=== PATIENT | female | born 1945 | race Caucasian/White ===

== ENCOUNTER → 2018-01-15 08:50 | Outpatient (CLI) | payer OTHER, SELFPAY ==
[2018-01-15 10:46] LABS: Add Manual Diff / Slide Review NO; Basophils Percent Auto 0.7 % (0-2); Eosinophils Percent Auto 2.3 % (2-4); Hemoglobin 14.5 g/dL (12.0-16.0); Lymphocytes Percent Auto 20.1 % (25-40); Mean Corpuscular HGB Conc 33.8 % (30-36); Mean Corpuscular Hemoglobin 32.5 PG (26-34); Mean Corpuscular Volume 96.3 fL (80-100); Monocytes Percent Auto 8.8 % (3-14); Neutrophils Absolute Auto 4000 /uL (3000-5900); Neutrophils Percent Auto 68.1 % (50-75); Platelet Count 253 X10^3/uL (150-400); Red Blood Cell Count 4.47 X10^6/uL (4.0-5.2); Red Cell Distribution Width 12.5 % (11.6-14.8); White Blood Cell Count 5.8 X10^3/uL (4.5-11.0)
[2018-01-15 11:05] LABS: Alanine Aminotransferase 39 IU/L (9-52); Albumin 4.3 g/dL (3.5-5.0); Albumin Globulin Ratio 1.6 (1.0-2.8); Alkaline Phosphatase 51 U/L (38-126); Aspartate Aminotransferase 36 IU/L (14-36); BUN Creatinine Ratio 28.6 (6-22); Bilirubin Total 0.6 mg/dL (0.2-1.3); Blood Urea Nitrogen 20 mg/dL (7-17); Calcium 9.3 mg/dL (8.4-10.2); Carbon Dioxide 31 mmol/L (22-32); Chloride 99 mmol/L (98-107); Cholesterol 128 mg/dL (140-199); Estimated Glomerular Filt Rate > 60.0 mL/min (>60); Globulin 2.7 g/dL (1.7-4.1); Glucose 83 mg/dL (80-110); HDL Cholesterol 52 mg/dL (40-60); HEMOLYSIS < 15 (0-50); LDL Cholesterol Calculated 64 mg/dL (<100); Potassium 4.3 mmol/L (3.4-5.1); Sodium 137 mmol/L (137-145); Triglycerides 60 mg/dL (35-150)
[2018-01-15 11:32] LABS: TSH w/ Reflex to FT4 1.59 uIU/mL (0.47-4.68)
== END ==
PROVIDERS: PCP Family Medicine; Visit Provider Family Medicine
DX: E78.5 Hyperlipidemia, unspecified (principal)
CPT/HCPCS: 36415; 80053; 80061; 84443; 85025

== ENCOUNTER 2018-01-24 11:40 | Emergency (ER) | payer OTHER, SELFPAY ==
[2018-01-24 11:48] VITALS: BP 152/92; PULSE 46; RESP 14; TEMP 36.4; O2SAT 99
--- NOTE | 2018-01-24 13:03 | ED.BACK ---
HPI - Back Pain/Injury General Chief Complaint: Back Pain/Injury Stated Complaint: neck pain that is causing [place],elevated bp Time Seen by Provider: 01/24/18 12:13 History of Present Illness HPI Narrative: 72-year-old female here for complaint of having neck pain bilaterally for the last couple of days. She also reports having some dizziness that she obtained after holding her head up and trying to trim some hedges that were above her. She states that she went inside and rested and that seem to help her symptoms somewhat. She denies any trauma to the neck except she did have a massage last week that did cause some increased pain to to her neck. She denies any headache. She also states that her heart rate has been slow over the last few days. She is able to ambulate into the emergency room. No syncope. No chest pain no shortness of breath no fevers no chills. MD Complaint: other Related Data Home Medications Medication Instructions Recorded Confirmed ASCORBIC ACID (#VITAMIN C) 500 mg PO QDAY #0 04/06/11 01/19/18 CA PANTOTHENATE/FOLIC ACID/VIT 1 tab PO QDAY #0 04/06/11 01/19/18 (MULTIVITAMIN) cholecalciferol (vitamin D3) 1,000 1,000 unit PO DAILY 01/19/18 01/19/18 unit capsule ubidecarenone-omega 3-vit E 25 1 cap PO DAILY 01/19/18 01/19/18 mg-150 (90-60) mg-200 unit capsule Previous Rx's Medication Instructions Recorded atorvastatin 40 mg PO HS #90 tab 07/12/17 frovatriptan [Frova] 0 PO SEE INSTRUCTIONS PRN #9 tab 10/09/17 nadolol 20 mg tablet 20 mg PO QDAY #90 tab 11/29/17 Allergies Allergy/AdvReac Type Severity Reaction Status Date / Time Penicillins Allergy Mild CHILDHOOD Verified 01/19/18 15:49 Review of Systems Constitutional Denies chills, Denies fever(s), Denies lethargy and Denies weakness Eyes Denies change in vision, Denies eye discharge, Denies irritation and Denies loss of vision ENT Ears, Nose, Mouth, and Throat: Denies change in voice, Denies neck pain and Denies sore throat Cardiovascular Denies chest pain, Denies irregular heart rhythm, Denies lightheadedness, Denies palpitations, Denies dyspnea, Denies dyspnea on exertion and Denies orthopnea Comments: Dizziness Respiratory Denies cough, Denies dyspnea, Denies dyspnea on exertion and Denies wheezing Gastrointestinal Gastrointestinal: Denies abdominal pain, Denies change in bowel habits, Denies diarrhea, Denies nausea and Denies vomiting Genitourinary Denies hematuria, Denies flank pain, Denies urinary incontinence and Denies urinary urgency Musculoskeletal Denies neck pain Comments: Neck pain Integumentary/Breasts Denies pruritus, Denies erythema, Denies rash and Denies wounds Neurologic Denies confusion, Denies loss of vision and Denies weakness Psychiatric Denies anxiety, Denies confusion, Denies depression, Denies homicidal ideation and Denies suicidal ideation Endocrine Denies palpitations Allergic/Immunologic Denies wheezing FORMERLY [facility] Medical History Chronic headaches (Chronic 1996) Hayfever (Chronic) Myopia (Chronic 2010) Retinal degeneration (Chronic 2010) SVT (supraventricular tachycardia) (Chronic 2003) Abnormal Pap smear of cervix (Resolved 2001) 1 para 1 (Resolved) History of eczema as a child (Resolved) Menopause (Resolved ~1995) Surgical History Severe nausea following anesthesia (Resolved) Status post colonoscopy (Resolved 2013) Status post tubal ligation (Resolved 1994) Family History Father Polycystic kidney Crohn's disease Grandfather Cancer Mother Diabetes mellitus, type 2 Dementia Pneumonia Grandmother No problems noted. Grandfather Lung cancer Grandmother Dementia Social History Smoking Status: Never smoker Exam Initial Vital Signs Initial Vital Signs: Vital Signs Temperature 97.6 F 01/24/18 11:48 Pulse Rate 46 L 01/24/18 11:48 Respiratory Rate 14 01/24/18 11:48 Blood Pressure 152/92 H 01/24/18 11:48 Pulse Oximetry 99 01/24/18 11:48 Const General: cooperative and well developed Nutritional Appearance: well nourished Orientation: alert, awake, oriented x3 and not confused HENMT Head: normal to inspection and normocephalic Mouth: oral mucosae normal, oropharynx normal and moist mucous membranes Eyes Conjunctivae: conjunctivae normal Sclera: sclerae normal Pupils: PERRL EOM: EOM intact bilaterally Neck Neck: normal visual inspection, full ROM, trachea midline, No lymphadenopathy, No midline deformity and No JVD Lymphatic: No lymphedema Other: Tenderness to bilateral cervical paraspinals Chest Chest: normal inspection of the chest Resp Effort & Inspection: normal respiratory effort, able to speak in complete sentences, no respiratory distress and no use of accessory muscles Auscultation: clear to auscultation bilaterally, no rales, no rhonchi and no wheezes Cardio Rate: bradycardic Rhythm: regular rhythm Heart Sounds: no click, no gallops, no murmurs and no rubs Pulses: normal peripheral pulses Skin General: no rashes or lesions noted, No jaundice and No petechiae Neuro General: alert, oriented x3, gait normal and no focal motor deficits Speech: speech normal Extrem General: full ROM, no clubbing, cyanosis or edema, no pedal edema and no calf tenderness Course Orders Ordered: ED Orders 01/24/18 13:29 CT angio head and neck Stat XR chest 1V Stat 01/24/18 13:45 Complete Blood Count AUTO DIFF Stat Comprehensive Metabolic Panel Stat Troponin & CK Cardiac Panel Stat Vital Signs - 8 hr 01/24/18 13:57 01/24/18 14:56 Pulse Rate 45 L 50 L Respiratory Rate 14 13 Blood Pressure [Right Arm] 134/57 H 147/63 H Pulse Oximetry 98 MDM - Back Pain/Injury Lab Data Result diagrams: 01/24/18 13:45 01/24/18 13:45 Lab Results 01/24/18 01/24/18 Range/Units 13:45 13:45 WBC 5.8 (4.5-11.0) X10^3/uL RBC 4.31 (4.0-5.2) X10^6/uL Hgb 14.1 (12.0-16.0) g/dL Hct 41.6 (36-46) % MCV 96.6 (80-100) fL MCH 32.8 (26-34) PG MCHC 33.9 (30-36) % RDW 12.5 (11.6-14.8) % Plt Count 228 (150-400) X10^3/uL Neut % (Auto) 66.3 (50-75) % Lymph % (Auto) 21.9 L (25-40) % Terry % (Auto) 9.4 (3-14) % Eos % (Auto) 1.9 L (2-4) % Baso % (Auto) 0.5 (0-2) % Neut # (Auto) 3800 (8059-8979) /uL Sodium 139 (137-145) mmol/L Potassium 4.0 (3.4-5.1) mmol/L Chloride 100 (98-107) mmol/L Carbon Dioxide 32 (22-32) mmol/L BUN 20 H (7-17) mg/dL Creatinine 0.70 (0.52-1.04) mg/dL Estimated GFR > 60.0 (>60) mL/min BUN/Creatinine Ratio 28.6 H (6-22) Glucose 97 (80-110) mg/dL Calcium 9.1 (8.4-10.2) mg/dL Total Bilirubin 0.4 (0.2-1.3) mg/dL AST 29 (14-36) IU/L ALT 36 (9-52) IU/L Alkaline Phosphatase 51 (38-126) U/L Total Creatine Kinase 107 (30-135) U/L CK-MB (CK-2) 1.39 (<2.37) ng/mL CK-MB (CK-2) Rel Index 1.3 L (1.5-5.0) % Troponin I < 0.012 (0.01-0.034) ng/mL Total Protein 6.4 (6.3-8.2) g/dL Albumin 4.1 (3.5-5.0) g/dL Globulin 2.3 (1.7-4.1) g/dL Albumin/Globulin Ratio 1.8 (1.0-2.8) Imaging Data Chest x-ray: Radiologist's impression: Patient: Blessing Islas MR#: [id number] : 1945 Acct:[id number] Age/Sex: 72 / F Date of Service: 01/24/18 Loc: ED Accession Number: [id number] Procedure: XR chest 1V Ordering Provider: Reji Wilson PROCEDURE: XR CHEST 1V INDICATIONS: States feeling off TECHNIQUE: One view of the chest was acquired. COMPARISON: [facility], , CHEST 2 VIEW, 04/29/2016, 12:10. FINDINGS: Surgical changes and devices: None. Lungs and pleura: No pleural effusions or pneumothorax. Lungs are clear. Mediastinum: Mediastinal contours appear normal. Heart size is normal. Bones and chest wall: No suspicious bony lesions. Overlying soft tissues appear unremarkable. IMPRESSION: Normal for age, source of current symptoms is not seen. Dictated by: Vishal Gleason M.D. on 01/24/2018 at 13:50 Approved by: Vishal Glaeson M.D. on 01/24/2018 at 13:50 CT scan - head: Radiologist's impression: Signed Patient: Blessing Islas MR#: [id number] : 1945 Acct:[id number] Age/Sex: 72 / F Date of Service: 01/24/18 Loc: ED Accession Number: [id number] Procedure: CT angio head and neck Ordering Provider: Reji Wilson PROCEDURE: CT ANGIO HEAD AND NECK INDICATIONS: Neck pain and lightheadedness TECHNIQUE: Pre-contrast 4.5 mm thick sections acquired from the foramen magnum to the vertex. After the administration of intravenous contrast, 1 mm thick sections acquired from the aortic arch through the [place]. Post-contrast 4.5 mm thick sections then re-acquired from the foramen magnum to the vertex. 3-dimensional wagfauq-gecnvdczs-lancldejec (MIP) and/or volume rendering reformats were acquired of the central intracranial vasculature and neck separately. COMPARISON: [facility], , MRI HEAD W/WO CONTRAST, 01/27/2006, 16:28. FINDINGS: Image quality: Excellent. BRAIN: CSF spaces: Ventricles are normal in size and shape. Basal cisterns are patent. No extra-axial fluid collections. At the right parafalcine extra-axial space anteriorly near the frontoparietal junction there is a rounded calcific radiodensity that appears to arise from the falx, and which measures up to 8 mm in diameter, and is not associated with adjacent significant mass effect or vasogenic edema. The appearance is suggestive of a small meningioma. Brain: No midline shift. No intracranial bleeds or masses. [place]ax-white matter interface appears intact. Skull and face: Calvarium and facial bones appear intact, without suspicious lesions. Orbits appear normal. Sinuses: Sinuses and mastoids are clear. HEAD CT ANGIOGRAPHY: Anterior circulation: Intracranial internal carotid arteries are normal in size and flow. The flow within the paired anterior cerebral arteries is normal and symmetric. The flow within the middle cerebral arteries is normal and symmetric. The anterior communicating artery is seen. No aneurysms are seen. Posterior circulation: Visualized portions of the vertebral arteries demonstrate normal caliber, and join to form a normal appearing basilar artery. Flow within the posterior cerebral arteries is normal and symmetric. No aneurysms are seen. NECK CT ANGIOGRAPHY: Carotid system: The great vessels demonstrate a conventional anatomy as they arise from the aortic arch. The origins of the common carotid arteries appear patent. The common carotid arteries demonstrate normal caliber and courses. The bifurcation regions are both widely patent. The internal carotid arteries demonstrate normal calibers and courses. Posterior circulation: The origins of the vertebral arteries both appear widely patent. The more superior extracranial portions of both vertebral arteries also demonstrate normal courses and calibers. They join to form a normal appearing basilar artery. Soft tissues: Visualized neck soft tissues demonstrate no suspicious abnormalities. Bones: No suspicious bony lesions. Visualized cervical spine appears normally aligned. IMPRESSION: Brain parenchyma appears normal for age. No stroke or hemorrhage found, no mass lesion within the brain parenchyma is identified. A definite source of current symptoms is not seen. There is an 8mm diameter calcified right anterior parafalcine frontoparietal junction structure statistically likely to represent a small meningioma. On review of a prior MRI from 01/27/06 this structure appears to have been present and measured only 1.2 mm at that time. If clinically desired a followup elective contrast-enhanced brain MRI could be utilized to confirm diagnosis. Any quantitative measurements of stenosis were performed using NASCET criteria. Dictated by: Vishal Gleason M.D. on 01/24/2018 at 14:48 Approved by: Vishal Gleason M.D. on 01/24/2018 at 14:55 ECG Data Interpretation: EKG shows sinus bradycardia with ventricular rate of 41. No ST elevation or depression. No ectopy. Pr interval 188. QRS duration of 85. QT of 463 MDM Narrative Medical decision making narrative: Chest x-ray was obtained and was negative for any acute findings. EKG shows sinus bradycardia with no ST elevation or depression. No ectopy. CBC was obtained was unremarkable. Chem panel was obtained was unremarkable. Troponin was negative. CTA of head and neck was obtained and was negative for any acute findings. There was a finding that is suggestive of a meningioma that was 8 mm. Which compared to MRI in 2011 was 1.2 mm. Will have follow up with primary care provider for further evaluation. Looking back at her vital signs over the last several months she is consistently in the 40s and 50s suspect that this may be due to her nadolol prescription. Her blood pressure remained stable here. Neck pain appears to be muscle pain into the paraspinals of her cervical spine use [id number] Tylenol for discomfort. Follow up with primary care provider in next few days return emergency room for worsening symptoms. Discharge Plan Departure Patient Disposition: Home, Self-Care Clinical Impression: Bilateral neck pain Discharge Date/Time: 01/24/18 15:34 Interventions: ED Discharge Assessment Last Done: 01/24/18 15:34 Instructions: DI for Neck Pain Activity Restrictions/Additional Instructions: Signs and symptoms of the neck pain appear to be muscle pain to both sides of the neck use [id number] Tylenol as needed for any discomfort. Laboratory results today were unremarkable. CT and chest x-ray were also unremarkable. Your heart rate over the past several months has been in the 40s and 50s suspect this may be due to the nadolol use which does slow down the heart rate. There was a finding of meningioma which was also seen in MRI from 2011 however it is slightly larger on the CT today. Recommend following up with primary care provider for continued monitoring. For any worsening symptoms return to the emergency room. Prescriptions: No Action ASCORBIC ACID (#VITAMIN C) 500 mg PO QDAY Qty: 0 RF: 0 CA PANTOTHENATE/FOLIC ACID/VIT (MULTIVITAMIN) 1 tab PO QDAY Qty: 0 RF: 0 atorvastatin 40 MG tablet 40 mg PO HS Qty: 90 RF: 3 frovatriptan [Frova] 2.5 MG tablet PO SEE INSTRUCTIONS PRNQty: 9 RF: 11 nadolol 20 mg tablet 20 mg PO QDAY Qty: 90 RF: 5 ubidecarenone-omega 3-vit E [Co [id number] E-Fish Oil] 25-150-200 mg-mg-unit capsule 1 cap PO DAILY RF: 0 cholecalciferol (vitamin D3) 1,000 unit capsule 1,000 unit PO DAILY RF: 0 Referrals: Kym Mayorga DO [Primary Care Provider] -
--- NOTE | 2018-01-24 13:12 | PC.NURSE ---
rt side neck pain, began while gardening several days ago, pt reports she was looking up for a while during pruning, reports since that time the neck pain has been episodic with associated dizziness, also concern about low heart rate, sinus jimenez on monitor, denies sx at time of exam, denies cp/soa/numbness/tingling/fall or recent illness
--- NOTE | 2018-01-24 13:29 | DI.CT.S_ITS ---
PROCEDURE: CT ANGIO HEAD AND NECK INDICATIONS: Neck pain and lightheadedness TECHNIQUE: Pre-contrast 4.5 mm thick sections acquired from the foramen magnum to the vertex. After the administration of intravenous contrast, 1 mm thick sections acquired from the aortic arch through the [place] of [place]. Post-contrast 4.5 mm thick sections then re-acquired from the foramen magnum to the vertex. 3-dimensional obbiasl-ubvfvxjve-depinbphxo (MIP) and/or volume rendering reformats were acquired of the central intracranial vasculature and neck separately. COMPARISON: [facility], , MRI HEAD W/WO CONTRAST, 01/27/2006, 16:28. FINDINGS: Image quality: Excellent. BRAIN: CSF spaces: Ventricles are normal in size and shape. Basal cisterns are patent. No extra-axial fluid collections. At the right parafalcine extra-axial space anteriorly near the frontoparietal junction there is a rounded calcific radiodensity that appears to arise from the falx, and which measures up to 8 mm in diameter, and is not associated with adjacent significant mass effect or vasogenic edema. The appearance is suggestive of a small meningioma. Brain: No midline shift. No intracranial bleeds or masses. [place]-white matter interface appears intact. Skull and face: Calvarium and facial bones appear intact, without suspicious lesions. Orbits appear normal. Sinuses: Sinuses and mastoids are clear. HEAD CT ANGIOGRAPHY: Anterior circulation: Intracranial internal carotid arteries are normal in size and flow. The flow within the paired anterior cerebral arteries is normal and symmetric. The flow within the middle cerebral arteries is normal and symmetric. The anterior communicating artery is seen. No aneurysms are seen. Posterior circulation: Visualized portions of the vertebral arteries demonstrate normal caliber, and join to form a normal appearing basilar artery. Flow within the posterior cerebral arteries is normal and symmetric. No aneurysms are seen. NECK CT ANGIOGRAPHY: Carotid system: The great vessels demonstrate a conventional anatomy as they arise from the aortic arch. The origins of the common carotid arteries appear patent. The common carotid arteries demonstrate normal caliber and courses. The bifurcation regions are both widely patent. The internal carotid arteries demonstrate normal calibers and courses. Posterior circulation: The origins of the vertebral arteries both appear widely patent. The more superior extracranial portions of both vertebral arteries also demonstrate normal courses and calibers. They join to form a normal appearing basilar artery. Soft tissues: Visualized neck soft tissues demonstrate no suspicious abnormalities. Bones: No suspicious bony lesions. Visualized cervical spine appears normally aligned. IMPRESSION: Brain parenchyma appears normal for age. No stroke or hemorrhage found, no mass lesion within the brain parenchyma is identified. A definite source of current symptoms is not seen. There is an 8mm diameter calcified right anterior parafalcine frontoparietal junction structure statistically likely to represent a small meningioma. On review of a prior MRI from 01/27/06 this structure appears to have been present and measured only 1.2 mm at that time. If clinically desired a followup elective contrast-enhanced brain MRI could be utilized to confirm diagnosis. Any quantitative measurements of stenosis were performed using NASCET criteria. Dictated by: Vishal Gleason M.D. on 01/24/2018 at 14:48 Approved by: Vishal Gleason M.D. on 01/24/2018 at 14:55
--- NOTE | 2018-01-24 13:29 | DI.RAD.S_ITS ---
PROCEDURE: XR CHEST 1V INDICATIONS: States feeling off TECHNIQUE: One view of the chest was acquired. COMPARISON: [facility], , CHEST 2 VIEW, 04/29/2016, 12:10. FINDINGS: Surgical changes and devices: None. Lungs and pleura: No pleural effusions or pneumothorax. Lungs are clear. Mediastinum: Mediastinal contours appear normal. Heart size is normal. Bones and chest wall: No suspicious bony lesions. Overlying soft tissues appear unremarkable. IMPRESSION: Normal for age, source of current symptoms is not seen. Dictated by: Vishal Gleason M.D. on 01/24/2018 at 13:50 Approved by: Vishal Gleason M.D. on 01/24/2018 at 13:50
[2018-01-24 13:57] VITALS: BP 134/57; PULSE 45; RESP 14
[2018-01-24 13:57] LABS: Add Manual Diff / Slide Review NO; Basophils Percent Auto 0.5 % (0-2); Eosinophils Percent Auto 1.9 % (2-4); Hematocrit 41.6 % (36-46); Hemoglobin 14.1 g/dL (12.0-16.0); Lymphocytes Percent Auto 21.9 % (25-40); Mean Corpuscular HGB Conc 33.9 % (30-36); Mean Corpuscular Hemoglobin 32.8 PG (26-34); Mean Corpuscular Volume 96.6 fL (80-100); Monocytes Percent Auto 9.4 % (3-14); Neutrophils Absolute Auto 3800 /uL (3000-5900); Neutrophils Percent Auto 66.3 % (50-75); Platelet Count 228 X10^3/uL (150-400); Red Blood Cell Count 4.31 X10^6/uL (4.0-5.2); Red Cell Distribution Width 12.5 % (11.6-14.8); White Blood Cell Count 5.8 X10^3/uL (4.5-11.0)
[2018-01-24 14:12] LABS: Alanine Aminotransferase 36 IU/L (9-52); Albumin 4.1 g/dL (3.5-5.0); Albumin Globulin Ratio 1.8 (1.0-2.8); Alkaline Phosphatase 51 U/L (38-126); Aspartate Aminotransferase 29 IU/L (14-36); BUN Creatinine Ratio 28.6 (6-22); Bilirubin Total 0.4 mg/dL (0.2-1.3); Blood Urea Nitrogen 20 mg/dL (7-17); Calcium 9.1 mg/dL (8.4-10.2); Carbon Dioxide 32 mmol/L (22-32); Chloride 100 mmol/L (98-107); Creatine Kinase 107 U/L (30-135); Estimated Glomerular Filt Rate > 60.0 mL/min (>60); Globulin 2.3 g/dL (1.7-4.1); Glucose 97 mg/dL (80-110); HEMOLYSIS < 15 (0-50); Sodium 139 mmol/L (137-145); Total Protein 6.4 g/dL (6.3-8.2)
[2018-01-24 14:23] LABS: Troponin I < 0.012 ng/mL (0.01-0.034)
[2018-01-24 14:28] LABS: CKMB % Relative Index 1.3 % (1.5-5.0); Creatine Kinase MB 1.39 ng/mL (<2.37)
--- NOTE | 2018-01-24 14:47 | ED_ITS ---
HPI - Back Pain/Injury General Chief Complaint: Back Pain/Injury Stated Complaint: neck pain that is causing [place],elevated bp Time Seen by Provider: 01/24/18 12:13 History of Present Illness HPI Narrative: 72-year-old female here for complaint of having neck pain bilaterally for the last couple of days. She also reports having some dizziness that she obtained after holding her head up and trying to trim some hedges that were above her. She states that she went inside and rested and that seem to help her symptoms somewhat. She denies any trauma to the neck except she did have a massage last week that did cause some increased pain to to her neck. She denies any headache. She also states that her heart rate has been slow over the last few days. She is able to ambulate into the emergency room. No syncope. No chest pain no shortness of breath no fevers no chills. MD Complaint: other Related Data Home Medications Medication Instructions Recorded Confirmed ASCORBIC ACID (#VITAMIN C) 500 mg PO QDAY #0 04/06/11 01/19/18 CA PANTOTHENATE/FOLIC ACID/VIT 1 tab PO QDAY #0 04/06/11 01/19/18 (MULTIVITAMIN) cholecalciferol (vitamin D3) 1,000 1,000 unit PO DAILY 01/19/18 01/19/18 unit capsule ubidecarenone-omega 3-vit E 25 1 cap PO DAILY 01/19/18 01/19/18 mg-150 (90-60) mg-200 unit capsule Previous Rx's Medication Instructions Recorded atorvastatin 40 mg PO HS #90 tab 07/12/17 frovatriptan [Frova] 0 PO SEE INSTRUCTIONS PRN #9 tab 10/09/17 nadolol 20 mg tablet 20 mg PO QDAY #90 tab 11/29/17 Allergies Allergy/AdvReac Type Severity Reaction Status Date / Time Penicillins Allergy Mild CHILDHOOD Verified 01/19/18 15:49 Review of Systems Constitutional Denies chills, Denies fever(s), Denies lethargy and Denies weakness Eyes Denies change in vision, Denies eye discharge, Denies irritation and Denies loss of vision ENT Ears, Nose, Mouth, and Throat: Denies change in voice, Denies neck pain and Denies sore throat Cardiovascular Denies chest pain, Denies irregular heart rhythm, Denies lightheadedness, Denies palpitations, Denies dyspnea, Denies dyspnea on exertion and Denies orthopnea Comments: Dizziness Respiratory Denies cough, Denies dyspnea, Denies dyspnea on exertion and Denies wheezing Gastrointestinal Gastrointestinal: Denies abdominal pain, Denies change in bowel habits, Denies diarrhea, Denies nausea and Denies vomiting Genitourinary Denies hematuria, Denies flank pain, Denies urinary incontinence and Denies urinary urgency Musculoskeletal Denies neck pain Comments: Neck pain Integumentary/Breasts Denies pruritus, Denies erythema, Denies rash and Denies wounds Neurologic Denies confusion, Denies loss of vision and Denies weakness Psychiatric Denies anxiety, Denies confusion, Denies depression, Denies homicidal ideation and Denies suicidal ideation Endocrine Denies palpitations Allergic/Immunologic Denies wheezing [facility] Medical History Chronic headaches (Chronic 1996) Hayfever (Chronic) Myopia (Chronic 2010) Retinal degeneration (Chronic 2010) SVT (supraventricular tachycardia) (Chronic 2003) Abnormal Pap smear of cervix (Resolved 2001) 1 para 1 (Resolved) History of eczema as a child (Resolved) Menopause (Resolved ~1995) Surgical History Severe nausea following anesthesia (Resolved) Status post colonoscopy (Resolved 2013) Status post tubal ligation (Resolved 1994) Family History Father Polycystic kidney Crohn's disease Grandfather Cancer Mother Diabetes mellitus, type 2 Dementia Pneumonia Grandmother No problems noted. Grandfather Lung cancer Grandmother Dementia Social History Smoking Status: Never smoker Exam Initial Vital Signs Initial Vital Signs: Vital Signs Temperature 97.6 F 01/24/18 11:48 Pulse Rate 46 L 01/24/18 11:48 Respiratory Rate 14 01/24/18 11:48 Blood Pressure 152/92 H 01/24/18 11:48 Pulse Oximetry 99 01/24/18 11:48 Const General: cooperative and well developed Nutritional Appearance: well nourished Orientation: alert, awake, oriented x3 and not confused HENMT Head: normal to inspection and normocephalic Mouth: oral mucosae normal, oropharynx normal and moist mucous membranes Eyes Conjunctivae: conjunctivae normal Sclera: sclerae normal Pupils: PERRL EOM: EOM intact bilaterally Neck Neck: normal visual inspection, full ROM, trachea midline, No lymphadenopathy, No midline deformity and No JVD Lymphatic: No lymphedema Other: Tenderness to bilateral cervical paraspinals Chest Chest: normal inspection of the chest Resp Effort & Inspection: normal respiratory effort, able to speak in complete sentences, no respiratory distress and no use of accessory muscles Auscultation: clear to auscultation bilaterally, no rales, no rhonchi and no wheezes Cardio Rate: bradycardic Rhythm: regular rhythm Heart Sounds: no click, no gallops, no murmurs and no rubs Pulses: normal peripheral pulses Skin General: no rashes or lesions noted, No jaundice and No petechiae Neuro General: alert, oriented x3, gait normal and no focal motor deficits Speech: speech normal Extrem General: full ROM, no clubbing, cyanosis or edema, no pedal edema and no calf tenderness Course Orders Ordered: ED Orders 01/24/18 13:29 CT angio head and neck Stat XR chest 1V Stat 01/24/18 13:45 Complete Blood Count AUTO DIFF Stat Comprehensive Metabolic Panel Stat Troponin & CK Cardiac Panel Stat Vital Signs - 8 hr 01/24/18 13:57 01/24/18 14:56 Pulse Rate 45 L 50 L Respiratory Rate 14 13 Blood Pressure [Right Arm] 134/57 H 147/63 H Pulse Oximetry 98 MDM - Back Pain/Injury Lab Data Result diagrams: 01/24/18 13:45 01/24/18 13:45 Lab Results 01/24/18 01/24/18 Range/Units 13:45 13:45 WBC 5.8 (4.5-11.0) X10^3/uL RBC 4.31 (4.0-5.2) X10^6/uL Hgb 14.1 (12.0-16.0) g/dL Hct 41.6 (36-46) % MCV 96.6 (80-100) fL MCH 32.8 (26-34) PG MCHC 33.9 (30-36) % RDW 12.5 (11.6-14.8) % Plt Count 228 (150-400) X10^3/uL Neut % (Auto) 66.3 (50-75) % Lymph % (Auto) 21.9 L (25-40) % Bradley % (Auto) 9.4 (3-14) % Eos % (Auto) 1.9 L (2-4) % Baso % (Auto) 0.5 (0-2) % Neut # (Auto) 3800 (6384-4446) /uL Sodium 139 (137-145) mmol/L Potassium 4.0 (3.4-5.1) mmol/L Chloride 100 (98-107) mmol/L Carbon Dioxide 32 (22-32) mmol/L BUN 20 H (7-17) mg/dL Creatinine 0.70 (0.52-1.04) mg/dL Estimated GFR > 60.0 (>60) mL/min BUN/Creatinine Ratio 28.6 H (6-22) Glucose 97 (80-110) mg/dL Calcium 9.1 (8.4-10.2) mg/dL Total Bilirubin 0.4 (0.2-1.3) mg/dL AST 29 (14-36) IU/L ALT 36 (9-52) IU/L Alkaline Phosphatase 51 (38-126) U/L Total Creatine Kinase 107 (30-135) U/L CK-MB (CK-2) 1.39 (<2.37) ng/mL CK-MB (CK-2) Rel Index 1.3 L (1.5-5.0) % Troponin I < 0.012 (0.01-0.034) ng/mL Total Protein 6.4 (6.3-8.2) g/dL Albumin 4.1 (3.5-5.0) g/dL Globulin 2.3 (1.7-4.1) g/dL Albumin/Globulin Ratio 1.8 (1.0-2.8) Imaging Data Chest x-ray: Radiologist's impression: Patient: Blessing Islas MR#: [id number] : 1945 Acct:[id number] Age/Sex: 72 / F Date of Service: 01/24/18 Loc: ED Accession Number: [id number] Procedure: XR chest 1V Ordering Provider: Reji Wilson PROCEDURE: XR CHEST 1V INDICATIONS: States feeling off TECHNIQUE: One view of the chest was acquired. COMPARISON: [facility], , CHEST 2 VIEW, 04/29/2016, 12:10. FINDINGS: Surgical changes and devices: None. Lungs and pleura: No pleural effusions or pneumothorax. Lungs are clear. Mediastinum: Mediastinal contours appear normal. Heart size is normal. Bones and chest wall: No suspicious bony lesions. Overlying soft tissues appear unremarkable. IMPRESSION: Normal for age, source of current symptoms is not seen. Dictated by: Vishal Gleason M.D. on 01/24/2018 at 13:50 Approved by: Vishal Gleason M.D. on 01/24/2018 at 13:50 CT scan - head: Radiologist's impression: Signed Patient: Blessing Islas MR#: [id number] : 1945 Acct:[id number] Age/Sex: 72 / F Date of Service: 01/24/18 Loc: ED Accession Number: [id number] Procedure: CT angio head and neck Ordering Provider: Reji Wilson PROCEDURE: CT ANGIO HEAD AND NECK INDICATIONS: Neck pain and lightheadedness TECHNIQUE: Pre-contrast 4.5 mm thick sections acquired from the foramen magnum to the vertex. After the administration of intravenous contrast, 1 mm thick sections acquired from the aortic arch through the [place] of [place]. Post-contrast 4.5 mm thick sections then re- acquired from the foramen magnum to the vertex. 3-dimensional maximum-intensity- projection (MIP) and/or volume rendering reformats were acquired of the central intracranial vasculature and neck separately. COMPARISON: [facility], , MRI HEAD W/WO CONTRAST, 01/27/2006, 16:28. FINDINGS: Image quality: Excellent. BRAIN: CSF spaces: Ventricles are normal in size and shape. Basal cisterns are patent. No extra-axial fluid collections. At the right parafalcine extra-axial space anteriorly near the frontoparietal junction there is a rounded calcific radiodensity that appears to arise from the falx, and which measures up to 8 mm in diameter, and is not associated with adjacent significant mass effect or vasogenic edema. The appearance is suggestive of a small meningioma. Brain: No midline shift. No intracranial bleeds or masses. [place]-white matter interface appears intact. Skull and face: Calvarium and facial bones appear intact, without suspicious lesions. Orbits appear normal. Sinuses: Sinuses and mastoids are clear. HEAD CT ANGIOGRAPHY: Anterior circulation: Intracranial internal carotid arteries are normal in size and flow. The flow within the paired anterior cerebral arteries is normal and symmetric. The flow within the middle cerebral arteries is normal and symmetric. The anterior communicating artery is seen. No aneurysms are seen. Posterior circulation: Visualized portions of the vertebral arteries demonstrate normal caliber, and join to form a normal appearing basilar artery. Flow within the posterior cerebral arteries is normal and symmetric. No aneurysms are seen. NECK CT ANGIOGRAPHY: Carotid system: The great vessels demonstrate a conventional anatomy as they arise from the aortic arch. The origins of the common carotid arteries appear patent. The common carotid arteries demonstrate normal caliber and courses. The bifurcation regions are both widely patent. The internal carotid arteries demonstrate normal calibers and courses. Posterior circulation: The origins of the vertebral arteries both appear widely patent. The more superior extracranial portions of both vertebral arteries also demonstrate normal courses and calibers. They join to form a normal appearing basilar artery. Soft tissues: Visualized neck soft tissues demonstrate no suspicious abnormalities. Bones: No suspicious bony lesions. Visualized cervical spine appears normally aligned. IMPRESSION: Brain parenchyma appears normal for age. No stroke or hemorrhage found, no mass lesion within the brain parenchyma is identified. A definite source of current symptoms is not seen. There is an 8mm diameter calcified right anterior parafalcine frontoparietal junction structure statistically likely to represent a small meningioma. On review of a prior MRI from 01/27/06 this structure appears to have been present and measured only 1.2 mm at that time. If clinically desired a followup elective contrast-enhanced brain MRI could be utilized to confirm diagnosis. Any quantitative measurements of stenosis were performed using NASCET criteria. Dictated by: Vishal Gleason M.D. on 01/24/2018 at 14:48 Approved by: Vishal Gleason M.D. on 01/24/2018 at 14:55 ECG Data Interpretation: EKG shows sinus bradycardia with ventricular rate of 41. No ST elevation or depression. No ectopy. Pr interval 188. QRS duration of 85. QT of 463 MDM Narrative Medical decision making narrative: Chest x-ray was obtained and was negative for any acute findings. EKG shows sinus bradycardia with no ST elevation or depression. No ectopy. CBC was obtained was unremarkable. Chem panel was obtained was unremarkable. Troponin was negative. CTA of head and neck was obtained and was negative for any acute findings. There was a finding that is suggestive of a meningioma that was 8 mm. Which compared to MRI in 2011 was 1.2 mm. Will have follow up with primary care provider for further evaluation. Looking back at her vital signs over the last several months she is consistently in the 40s and 50s suspect that this may be due to her nadolol prescription. Her blood pressure remained stable here. Neck pain appears to be muscle pain into the paraspinals of her cervical spine use [id number] Tylenol for discomfort. Follow up with primary care provider in next few days return emergency room for worsening symptoms. Discharge Plan Departure Patient Disposition: Home, Self-Care Clinical Impression: Bilateral neck pain Discharge Date/Time: 01/24/18 15:34 Interventions: ED Discharge Assessment Last Done: 01/24/18 15:34 Instructions: DI for Neck Pain Activity Restrictions/Additional Instructions: Signs and symptoms of the neck pain appear to be muscle pain to both sides of the neck use [id number] Tylenol as needed for any discomfort. Laboratory results today were unremarkable. CT and chest x-ray were also unremarkable. Your heart rate over the past several months has been in the 40s and 50s suspect this may be due to the nadolol use which does slow down the heart rate. There was a finding of meningioma which was also seen in MRI from 2011 however it is slightly larger on the CT today. Recommend following up with primary care provider for continued monitoring. For any worsening symptoms return to the emergency room. Prescriptions: No Action ASCORBIC ACID (#VITAMIN C) 500 mg PO QDAY Qty: 0 RF: 0 CA PANTOTHENATE/FOLIC ACID/VIT (MULTIVITAMIN) 1 tab PO QDAY Qty: 0 RF: 0 atorvastatin 40 MG tablet 40 mg PO HS Qty: 90 RF: 3 frovatriptan [Frova] 2.5 MG tablet PO SEE INSTRUCTIONS PRNQty: 9 RF: 11 nadolol 20 mg tablet 20 mg PO QDAY Qty: 90 RF: 5 ubidecarenone-omega 3-vit E [Co [id number] E-Fish Oil] 25-150-200 mg-mg- unit capsule 1 cap PO DAILY RF: 0 cholecalciferol (vitamin D3) 1,000 unit capsule 1,000 unit PO DAILY RF: 0 Referrals: Kym Mayorga DO [Primary Care Provider] -
[2018-01-24 14:56] VITALS: BP 147/63; PULSE 50; RESP 13; O2SAT 98
== END 2018-01-24 15:34 | disposition home or self-care (01) ==
PROVIDERS: Emergency Provider Nurse Practitioner Family; Family Provider Family Medicine; PCP Family Medicine
DX: M54.2 Cervicalgia (principal)
CPT/HCPCS: 36591; 70496; 70498; 71045; 80053; 82550; 82553; 84484; 85025; 93005; 93010; 99282; 99285; Q9967

== ENCOUNTER → 2018-02-16 09:04 | Outpatient (CLI) | payer OTHER, SELFPAY ==
[2018-02-16 12:56] LABS: Appearance Urine UA CLEAR; Bilirubin Urine UA NEGATIVE (NEGATIVE); Color Urine UA YELLOW; Glucose Urine UA NEGATIVE (Normal); Ketones Urine UA NEGATIVE (NEGATIVE); Leukocyte Esterase Urine UA TRACE (NEGATIVE); Nitrite Urine UA Negative (Negative); Occult Blood Urine UA 2+ (Negative); Protein Urine UA NEGATIVE (Negative); Specific Gravity Urine UA <=1.005 (1.000-1.035); Urobilinogen Urine UA 0.2 E.U./dL (0.2)
[2018-02-16 13:08] LABS: Bacteria Urine Moderate (10-30); Culture Indicated Urine Specimen Cultured; RBC Urine 1-5/HPF (0-5/HPF); Squamous Epithelial Cell Urine 1-5 /HPF; WBC Urine 1-5/HPF (0-5/HPF)
== END ==
PROVIDERS: Family Provider Family Medicine; PCP Family Medicine; Visit Provider Family Medicine
DX: R30.0 Dysuria (principal)
CPT/HCPCS: 81001; 87077; 87086; 87186

== ENCOUNTER → 2018-02-28 07:02 | Outpatient (CLI) | payer OTHER, SELFPAY ==
[2018-02-28 08:25] LABS: Cholesterol 131 mg/dL (140-199); Estimated Glomerular Filt Rate > 60.0 mL/min (>60); HDL Cholesterol 50 mg/dL (40-60); LDL Cholesterol Calculated 70 mg/dL (<100); Triglycerides 56 mg/dL (35-150)
== END ==
PROVIDERS: PCP Family Medicine; Visit Provider Family Medicine
DX: D32.9 Benign neoplasm of meninges, unspecified (principal); E78.5 Hyperlipidemia, unspecified
CPT/HCPCS: 36415; 80061; 82565

== ENCOUNTER → 2018-03-02 06:37 | Outpatient (CLI) | payer OTHER, SELFPAY ==
--- NOTE | 2018-03-02 06:38 | DI.MRI.S_ITS ---
PROCEDURE: MR HEAD/BRAIN WO/W CON INDICATIONS: Meningioma TECHNIQUE: Noncontrast axial T1 spin echo, axial T2 fast spin echo, sagittal and axial FLAIR, coronal T2 fast spin echo, axial gradient echo, axial diffusion and ADC through the brain. After the administration of contrast, axial and coronal T1 spin echo with fat saturation through the brain. COMPARISON: [facility], CT, CT ANGIO HEAD AND NECK, 01/24/2018, 14:22. FINDINGS: Image quality: Excellent. CSF spaces: Basal cisterns are patent. No extra-axial fluid collections. Ventricles are normal in size and shape. Brain: No midline shift. An area of the finding described on the CT from 01/24/18, there is a 6 mm extra-axial focus within the T2 hyperintensity and questionable enhancement on post contrast pulse sequences. No definite dural tail is seen however this may be because of small size This finding based on location probably represents meningioma although technically indeterminate signal characteristics. There is cerebral volume loss for age. There is periventricular white matter chronic small vessel ischemic change. The brainstem appears normal. Diffusion-weighted images demonstrate no acute ischemic insults. No chronic ischemic insults. Normal intravascular flow voids are present. Skull and face: Calvarial marrow is normal in signal. Orbits appear normal. Sinuses: Sinuses and mastoids appear clear. IMPRESSION: 6 mm extra-axial signal abnormality seen in the location of the described calcification on prior CT from 01/24/18. Statistically this still probably represents meningioma although too small to characterize accurately. As clinically warranted, continued long-term surveillance with head CT could be performed to document stability given the absence of any more remote comparison studies. Dictated by: Geovanny Fonseca M.D. on 03/02/2018 at 9:52 Approved by: Geovanny Fonseca M.D. on 03/02/2018 at 9:59
== END ==
PROVIDERS: Family Provider Family Medicine; PCP Family Medicine; Visit Provider Family Medicine
DX: D32.0 Benign neoplasm of cerebral meninges (principal)
CPT/HCPCS: 70553

== ENCOUNTER → 2018-06-14 11:53 | Outpatient (CLI) | payer OTHER, SELFPAY ==
--- NOTE | 2018-06-14 | DI.MG.S_ITS ---
BILATERAL DIGITAL SCREENING MAMMOGRAM 3D/2D WITH CAD: 06/14/2018 CLINICAL: Routine screening. Comparison is made to exams dated: 06/01/2017 mammogram, 05/26/2016 mammogram, and 05/22/2015 mammogram - Located [facility]. The tissue of both breasts is extremely dense, which lowers the sensitivity of mammography. Current study was also evaluated with a Computer Aided Detection (CAD) system. No significant masses, calcifications, or other findings are seen in either breast. There has been no significant interval change. IMPRESSION: NEGATIVE There is no mammographic evidence of malignancy. A 1 year screening mammogram is recommended. This exam was interpreted at Station ID: [id number]. NOTE: For mammograms, a report in lay terms will be sent to the patient. Approximately 15% of breast malignancies will not be visualized mammographically. In the management of a palpable breast mass, a negative mammogram must not discourage biopsy of a clinically suspicious lesion. Electronically Signed By: Rafael aparicio/fatoumata:06/14/2018 19:10:31 letter sent: Normal Exam ACR BI-RADS Category 1: Negative [id number]
== END ==
PROVIDERS: PCP Family Medicine; Visit Provider Family Medicine
DX: Z12.31 Encounter for screening mammogram for malignant neoplasm of breast (principal)
CPT/HCPCS: 77063; 77067

== ENCOUNTER 2018-09-06 12:26 | Emergency (ER) | payer OTHER, SELFPAY ==
[2018-09-06 12:30] VITALS: BP 120/38; PULSE 44; RESP 16; TEMP 36.7; O2SAT 98
--- NOTE | 2018-09-06 13:07 | ED.FALL ---
HPI - Fall <KINGS Mohamud - Last Filed: 09/06/18 22:13> General Chief Complaint: Fall Stated Complaint: GLF hit head, left eye bleeding with laceration Time Seen by Provider: 09/06/18 12:49 Source: patient Mode of arrival: ambulatory Limitations: no limitations History of Present Illness HPI Narrative: 72-year-old female with a history migraines is a nonsmoker here for complaint of ground level fall just prior to arrival. She states she tripped over her foot causing her to land on her left side hitting her left forehead/face area. She reports she has redness to her left eye. She states that there was no loss of consciousness. She states she has a laceration to the left side of her face. No nausea or vomiting. She denies being on any blood thinners. She is ambulatory into the emergency room. She denies any visual changes. She reports slight discomfort to the left eye and left eye is watering. She does not know her last tetanus. No other concerns or complaints at this timeframe. complaint: fall Onset (ago): minute(s) Fall from: standing Fall witnessed: no Place fall occurred: home Loss of consciousness: none Related Data Home Medications Medication Instructions Recorded Confirmed ASCORBIC ACID (#VITAMIN C) 500 mg PO QDAY #0 04/06/11 04/19/18 CA PANTOTHENATE/FOLIC ACID/VIT 1 tab PO QDAY #0 04/06/11 04/19/18 (MULTIVITAMIN) cholecalciferol (vitamin D3) 1,000 1,000 unit PO DAILY 01/19/18 04/19/18 unit capsule ubidecarenone-omega 3-vit E 25 1 cap PO DAILY 01/19/18 04/19/18 mg-150 (90-60) mg-200 unit capsule brimonidine-timolol [Combigan] 1 drp OPHTHALMIC (EYE) Q12H 09/06/18 09/06/18 frovatriptan [Frova] 2.5 mg PO PRN PRN 09/06/18 09/06/18 nadolol 20 mg PO DAILY 09/06/18 09/06/18 Previous Rx's Medication Instructions Recorded atorvastatin 20 mg tablet 20 mg PO DAILY #90 tab 07/23/18 Allergies Allergy/AdvReac Type Severity Reaction Status Date / Time Penicillins Allergy Mild CHILDHOOD Verified 04/19/18 14:08 Review of Systems <KINGS Mohamud - Last Filed: 09/06/18 22:13> Constitutional Denies chills, Denies fever(s), Denies lethargy and Denies weakness Eyes Comments: Redness to left eye ENT Ears, Nose, Mouth, and Throat: Denies throat swelling Comments: Laceration left face Cardiovascular Denies chest pain, Denies irregular heart rhythm, Denies lightheadedness, Denies palpitations and Denies orthopnea Respiratory Denies wheezing Gastrointestinal Gastrointestinal: Denies abdominal pain, Denies change in bowel habits, Denies diarrhea, Denies nausea and Denies vomiting Genitourinary Denies hematuria, Denies flank pain, Denies urinary incontinence and Denies urinary urgency Musculoskeletal Denies back pain, Denies muscle weakness, Denies numbness and Denies tingling Integumentary/Breasts Denies pruritus, Denies erythema, Denies rash and Denies wounds Neurologic Denies confusion, Denies numbness, Denies tingling and Denies weakness Comments: Ground level fall hitting head Psychiatric Denies anxiety, Denies confusion, Denies depression, Denies homicidal ideation and Denies suicidal ideation Endocrine Denies palpitations Hematologic/Lymphatic Denies easy bruising Allergic/Immunologic Denies urticaria, Denies throat swelling and Denies wheezing Exam <KINGS Mohamud - Last Filed: 09/06/18 22:13> Initial Vital Signs Initial Vital Signs: Vital Signs Temperature 98.0 F 09/06/18 12:30 Pulse Rate 44 L 09/06/18 12:30 Respiratory Rate 16 09/06/18 12:30 Blood Pressure 120/38 L 09/06/18 12:30 Pulse Oximetry 98 09/06/18 12:30 Const General: cooperative and well developed Nutritional Appearance: well nourished Orientation: alert, awake, oriented x3 and not confused [facility] Head: normocephalic, No Parry's sign, No palpable skull fracture, No raccoon eyes, No scalp lesion and other (Laceration to left temporal/left lateral orbit area approximately 1.5 cm in) Mouth: oral mucosae normal and moist mucous membranes Teeth and gingiva: dentition normal Eyes Conjunctivae: conjunctival abnormality (Subconjunctival hemorrhage to the left eye to be inferior and medial aspect) left Sclera: scleral abnormality Pupils: PERRL EOM: EOM intact bilaterally Neck Neck: normal visual inspection, trachea midline, No lymphadenopathy, No midline deformity and No JVD Lymphatic: No lymphedema Resp Effort & Inspection: normal respiratory effort, able to speak in complete sentences, no respiratory distress and no use of accessory muscles Auscultation: clear to auscultation bilaterally, no rales, no rhonchi and no wheezes Cardio Rate: bradycardic Rhythm: regular rhythm Heart Sounds: no click, no gallops, no murmurs and no rubs Pulses: normal peripheral pulses Skin General: no rashes or lesions noted, No jaundice and No petechiae Neuro General: alert, oriented x3, gait normal and no focal motor deficits Speech: speech normal <Alisha Diaz DO - Last Filed: 09/07/18 07:50> Initial Vital Signs Initial Vital Signs: Vital Signs Temperature 98.0 F 09/06/18 12:30 Pulse Rate 44 L 09/06/18 12:30 Respiratory Rate 16 09/06/18 12:30 Blood Pressure 120/38 L 09/06/18 12:30 Pulse Oximetry 98 09/06/18 12:30 PFSH <KINGS Mohamud - Last Filed: 09/06/18 22:13> Social History Smoking Status: Never smoker Procedures <KINGS Mohamud - Last Filed: 09/06/18 22:13> Laceration Repair Laceration 1: Site: face and other Side (If applicable): left Size (cm): 1.5 Description: linear Depth: simple, single layer Local Anesthetic: lidocaine 1% Amount of anesthesia used (mL): 1.5 Pre-repair: wound explored and irrigated extensively Skin layer closed with: nylon Size (cm): 5-0 Number of sutures: 3 Technique: simple, interrupted Course <KINGS Mohamud - Last Filed: 09/06/18 22:13> Orders Ordered: ED Orders 09/06/18 13:36 CT facial bones wo con Stat CT head/brain wo con Stat Vital Signs - 8 hr 09/06/18 15:11 Pulse Rate 45 L Respiratory Rate 16 Blood Pressure 132/54 L Pulse Oximetry 98 <Alisha Diaz DO - Last Filed: 09/07/18 07:50> Orders Ordered: ED Orders 09/06/18 13:36 CT facial bones wo con Stat CT head/brain wo con Stat Vital Signs - 8 hr 09/06/18 15:11 Pulse Rate 45 L Respiratory Rate 16 Blood Pressure 132/54 L Pulse Oximetry 98 MDM - Fall <KINGS Mohamud - Last Filed: 09/06/18 22:13> Imaging Data Facial bone CT : My impression: [place] [id number] CT Scan Report Signed Patient: Blessing Islas [facility]#: [id number] : 7Acct:[id number] Age/Sex: 72 / FDate of Service: 09/06/18 Loc: ED Accession Number: [id number] Procedure: CT facial bones wo con Ordering Provider: Reji Wilson PROCEDURE: CT FACIAL BONES WO CON INDICATIONS: Ground level fall hitting left side of face and forehead TECHNIQUE: Noncontrast 2.5 mm thick axial images acquired from the mandible through the frontal sinuses, with coronal and sagittal reformatting. For radiation dose reduction, the following was used: automated exposure control, adjustment of mA and/or kV according to patient size. COMPARISON: None. FINDINGS: Image quality: Excellent. Bones and teeth: Orbital rawls are intact. Sinus rawls show no fracture or deformity. Nasal bones and septum are intact. Visualized portions of the mandible demonstrate no fractures or subluxation. Zygomatic arches are intact. Pterygoid plates are intact. Visualized portions of the skull base and auditory canals are intact. Sinuses: Paranasal sinuses are aerated, without fluid levels, mucosal thickening, or mucoceles. Mastoid air cells are aerated. Soft tissues: No edema, masses, or fluid collections. No enlarged lymph nodes. No soft tissue lacerations or debris. Vascular: Visualized vascular structures appear normal in the absence of contrast. Bony vascular foramina and canals are intact. IMPRESSION: No visualized acute fracture or dislocation. However, if clinical concern and/or pain persist, short interval imaging followup in 7-10 days is recommended, as occult injury cannot be definitively excluded. Dictated by: Suzie Bird M.D. on 09/06/2018 at 13:25 Approved by: Suzie Bird M.D. on 09/06/2018 at 13:[address] : Radiologist's impression: [address] [address] [address] Scan Report Signed Patient: Blessing Islas [facility]#: [id number] : 1946Acct:[id number] Age/Sex: 72 / FDate of Service: 09/06/18 Loc: ED Accession Number: [id number] Procedure: CT head/brain wo con Ordering Provider: Reji Wilson PROCEDURE: CT HEAD/BRAIN WO CON INDICATIONS: Ground level fall hitting left side of face/forehead TECHNIQUE: Noncontrast 4.5 mm thick angled axial sections acquired from the foramen magnum to the vertex, with coronal and sagittal reformats. For radiation dose reduction, the following was used: automated exposure control, adjustment of mA and/or kV according to patient size. COMPARISON: [facility], CT, CT FACIAL BONES WO CON, 09/06/2018, 13:57. [facility], MR, MR HEAD/BRAIN WO/W CON, 03/02/2018, 7:16. [facility], CT, CT ANGIO HEAD AND NECK, 01/24/2018, 14:22. FINDINGS: Image quality: Excellent. CSF spaces: Basal cisterns are patent. No extra-axial fluid collections. The ventricles are symmetric in size and shape. Brain: No intracranial bleeds. There is cerebral volume loss for age, with resultant ventricular and sulcal prominence. There are periventricular and deep white matter chronic small vessel ischemic changes. There is intracranial internal carotid artery atherosclerosis. Unchanged calcified extra-axial right frontal mass suspicious for meningioma. Skull and face: Calvarium and visualized facial bones appear intact, without suspicious lesions. Sinuses: Visualized sinuses and mastoids are clear. IMPRESSION: 1. No acute intracranial process. 2. Moderate atrophy and chronic microvascular ischemic changes. Dictated by: Suzie Bird M.D. on 09/06/2018 at 13:22 Approved by: Suzie Bird M.D. on 09/06/2018 at 13:25 [facility] Narrative Medical decision making narrative: Laceration to the left temporal area closed with 3 5-0 nylon simple interrupted sutures patient tolerated well no complications. Wound dressed with bacitracin. Tetanus was last obtained and 2016. CT of the head was obtained was negative for any acute findings. CT of facial bones was also obtained was also negative for any acute findings. Subconjunctival hemorrhage to the left eye should resolve on its own with time. Sutures to be removed in 5-7 days. Follow up with primary care provider next week. Use [id number] Tylenol or Motrin as needed for any discomfort. For any worsening symptoms return to the emergency room. Discharge Plan Departure Patient Disposition: Home Clinical Impression: Minor closed head injury Laceration of face Qualifiers: Encounter type: initial encounter Qualified Code(s): S01.81XA - Laceration without foreign body of other part of head, initial encounter Subconjunctival hemorrhage Qualifiers: Laterality: left Qualified Code(s): H11.32 - Conjunctival hemorrhage, left eye Discharge Date/Time: 09/06/18 15:12 Interventions: ED Discharge Assessment Last Done: 09/06/18 15:11 Instructions: DI for Closed Head Injury, DI for Subconjunctival Hemorrhage Activity Restrictions/Additional Instructions: CT of the head and facial bones was obtained was negative for any acute findings. Laceration to the left face was closed with 3 sutures. Sutures removed in 5-7 days. Follow up with primary care provider for re-evaluation. Hemorrhage to the left eye should resolve on its own over a few weeks. Use [id number] Tylenol or Motrin as needed for any discomfort. Dress wound daily with bacitracin a couple times a day until healed. For any worsening symptoms return to the emergency room. Head injury instructions are provided with warning signs return to the emergency room. Prescriptions: No Action ASCORBIC ACID (#VITAMIN C) 500 mg PO QDAY Qty: 0 RF: 0 CA PANTOTHENATE/FOLIC ACID/VIT (MULTIVITAMIN) 1 tab PO QDAY Qty: 0 RF: 0 atorvastatin 20 mg tablet 20 mg PO DAILY Qty: 90 RF: 1 ubidecarenone-omega 3-vit E [Co I-66-Leqofae E-Fish Oil] 25-150-200 mg-mg-unit capsule 1 cap PO DAILY RF: 0 cholecalciferol (vitamin D3) 1,000 unit capsule 1,000 unit PO DAILY RF: 0 Combigan 0.2-0.5 % Drops 1 drp ophthalmic (eye) Q12H RF: 0 nadolol 20 mg tablet 20 mg PO DAILY RF: 0 frovatriptan [Frova] 2.5 MG tablet 2.5 mg PO PRN PRN (Reason: Migraine Headache) RF: 0 Referrals: Kym Mayorga DO [Primary Care Provider] - <Alisha Diaz DO - Last Filed: 09/07/18 07:50> Cosign ED Attending [place] Attestation: I was immediately available in the department for consultation. Documentation has been reviewed. I agree with assessment and plan.
--- NOTE | 2018-09-06 13:36 | DI.CT.S_ITS ---
PROCEDURE: CT FACIAL BONES WO CON INDICATIONS: Ground level fall hitting left side of face and forehead TECHNIQUE: Noncontrast 2.5 mm thick axial images acquired from the mandible through the frontal sinuses, with coronal and sagittal reformatting. For radiation dose reduction, the following was used: automated exposure control, adjustment of mA and/or kV according to patient size. COMPARISON: None. FINDINGS: Image quality: Excellent. Bones and teeth: Orbital rawls are intact. Sinus rawls show no fracture or deformity. Nasal bones and septum are intact. Visualized portions of the mandible demonstrate no fractures or subluxation. Zygomatic arches are intact. Pterygoid plates are intact. Visualized portions of the skull base and auditory canals are intact. Sinuses: Paranasal sinuses are aerated, without fluid levels, mucosal thickening, or mucoceles. Mastoid air cells are aerated. Soft tissues: No edema, masses, or fluid collections. No enlarged lymph nodes. No soft tissue lacerations or debris. Vascular: Visualized vascular structures appear normal in the absence of contrast. Bony vascular foramina and canals are intact. IMPRESSION: No visualized acute fracture or dislocation. However, if clinical concern and/or pain persist, short interval imaging followup in 7-10 days is recommended, as occult injury cannot be definitively excluded. Dictated by: Suzie Bird M.D. on 09/06/2018 at 13:25 Approved by: Suzie Bird M.D. on 09/06/2018 at 13:29
--- NOTE | 2018-09-06 13:36 | DI.CT.S_ITS ---
PROCEDURE: CT HEAD/BRAIN WO CON INDICATIONS: Ground level fall hitting left side of face/forehead TECHNIQUE: Noncontrast 4.5 mm thick angled axial sections acquired from the foramen magnum to the vertex, with coronal and sagittal reformats. For radiation dose reduction, the following was used: automated exposure control, adjustment of mA and/or kV according to patient size. COMPARISON: [facility], CT, CT FACIAL BONES WO CON, 09/06/2018, 13:57. [facility], MR, MR HEAD/BRAIN WO/W CON, 03/02/2018, 7:16. [facility], CT, CT ANGIO HEAD AND NECK, 01/24/2018, 14:22. FINDINGS: Image quality: Excellent. CSF spaces: Basal cisterns are patent. No extra-axial fluid collections. The ventricles are symmetric in size and shape. Brain: No intracranial bleeds. There is cerebral volume loss for age, with resultant ventricular and sulcal prominence. There are periventricular and deep white matter chronic small vessel ischemic changes. There is intracranial internal carotid artery atherosclerosis. Unchanged calcified extra-axial right frontal mass suspicious for meningioma. Skull and face: Calvarium and visualized facial bones appear intact, without suspicious lesions. Sinuses: Visualized sinuses and mastoids are clear. IMPRESSION: 1. No acute intracranial process. 2. Moderate atrophy and chronic microvascular ischemic changes. Dictated by: Suzie Bird M.D. on 09/06/2018 at 13:22 Approved by: Suzie Bird M.D. on 09/06/2018 at 13:25
--- NOTE | 2018-09-06 14:51 | ED_ITS ---
HPI - Fall <KINGS Mohamud - Last Filed: 09/06/18 22:13> General Chief Complaint: Fall Stated Complaint: GLF hit head, left eye bleeding with laceration Time Seen by Provider: 09/06/18 12:49 Source: patient Mode of arrival: ambulatory Limitations: no limitations History of Present Illness HPI Narrative: 72-year-old female with a history migraines is a nonsmoker here for complaint of ground level fall just prior to arrival. She states she tripped over her foot causing her to land on her left side hitting her left forehead/face area. She reports she has redness to her left eye. She states that there was no loss of consciousness. She states she has a laceration to the left side of her face. No nausea or vomiting. She denies being on any blood thinners. She is ambulatory into the emergency room. She denies any visual changes. She reports slight discomfort to the left eye and left eye is watering. She does not know her last tetanus. No other concerns or complaints at this timeframe. complaint: fall Onset (ago): minute(s) Fall from: standing Fall witnessed: no Place fall occurred: home Loss of consciousness: none Related Data Home Medications Medication Instructions Recorded Confirmed ASCORBIC ACID (#VITAMIN C) 500 mg PO QDAY #0 04/06/11 04/19/18 CA PANTOTHENATE/FOLIC ACID/VIT 1 tab PO QDAY #0 04/06/11 04/19/18 (MULTIVITAMIN) cholecalciferol (vitamin D3) 1,000 1,000 unit PO DAILY 01/19/18 04/19/18 unit capsule ubidecarenone-omega 3-vit E 25 1 cap PO DAILY 01/19/18 04/19/18 mg-150 (90-60) mg-200 unit capsule brimonidine-timolol [Combigan] 1 drp OPHTHALMIC (EYE) Q12H 09/06/18 09/06/18 frovatriptan [Frova] 2.5 mg PO PRN PRN 09/06/18 09/06/18 nadolol 20 mg PO DAILY 09/06/18 09/06/18 Previous Rx's Medication Instructions Recorded atorvastatin 20 mg tablet 20 mg PO DAILY #90 tab 07/23/18 Allergies Allergy/AdvReac Type Severity Reaction Status Date / Time Penicillins Allergy Mild CHILDHOOD Verified 04/19/18 14:08 Review of Systems <KINGS Mohamud - Last Filed: 09/06/18 22:13> Constitutional Denies chills, Denies fever(s), Denies lethargy and Denies weakness Eyes Comments: Redness to left eye ENT Ears, Nose, Mouth, and Throat: Denies throat swelling Comments: Laceration left face Cardiovascular Denies chest pain, Denies irregular heart rhythm, Denies lightheadedness, Denies palpitations and Denies orthopnea Respiratory Denies wheezing Gastrointestinal Gastrointestinal: Denies abdominal pain, Denies change in bowel habits, Denies diarrhea, Denies nausea and Denies vomiting Genitourinary Denies hematuria, Denies flank pain, Denies urinary incontinence and Denies urinary urgency Musculoskeletal Denies back pain, Denies muscle weakness, Denies numbness and Denies tingling Integumentary/Breasts Denies pruritus, Denies erythema, Denies rash and Denies wounds Neurologic Denies confusion, Denies numbness, Denies tingling and Denies weakness Comments: Ground level fall hitting head Psychiatric Denies anxiety, Denies confusion, Denies depression, Denies homicidal ideation and Denies suicidal ideation Endocrine Denies palpitations Hematologic/Lymphatic Denies easy bruising Allergic/Immunologic Denies urticaria, Denies throat swelling and Denies wheezing Exam <KINGS Mohamud - Last Filed: 09/06/18 22:13> Initial Vital Signs Initial Vital Signs: Vital Signs Temperature 98.0 F 09/06/18 12:30 Pulse Rate 44 L 09/06/18 12:30 Respiratory Rate 16 09/06/18 12:30 Blood Pressure 120/38 L 09/06/18 12:30 Pulse Oximetry 98 09/06/18 12:30 Const General: cooperative and well developed Nutritional Appearance: well nourished Orientation: alert, awake, oriented x3 and not confused [facility] Head: normocephalic, No Parry's sign, No palpable skull fracture, No raccoon eyes, No scalp lesion and other (Laceration to left temporal/left lateral orbit area approximately 1.5 cm in) Mouth: oral mucosae normal and moist mucous membranes Teeth and gingiva: dentition normal Eyes Conjunctivae: conjunctival abnormality (Subconjunctival hemorrhage to the left eye to be inferior and medial aspect) left Sclera: scleral abnormality Pupils: PERRL EOM: EOM intact bilaterally Neck Neck: normal visual inspection, trachea midline, No lymphadenopathy, No midline deformity and No JVD Lymphatic: No lymphedema Resp Effort & Inspection: normal respiratory effort, able to speak in complete sentences, no respiratory distress and no use of accessory muscles Auscultation: clear to auscultation bilaterally, no rales, no rhonchi and no wheezes Cardio Rate: bradycardic Rhythm: regular rhythm Heart Sounds: no click, no gallops, no murmurs and no rubs Pulses: normal peripheral pulses Skin General: no rashes or lesions noted, No jaundice and No petechiae Neuro General: alert, oriented x3, gait normal and no focal motor deficits Speech: speech normal <Alisha Diaz DO - Last Filed: 09/07/18 07:50> Initial Vital Signs Initial Vital Signs: Vital Signs Temperature 98.0 F 09/06/18 12:30 Pulse Rate 44 L 09/06/18 12:30 Respiratory Rate 16 09/06/18 12:30 Blood Pressure 120/38 L 09/06/18 12:30 Pulse Oximetry 98 09/06/18 12:30 PFSH <KINGS Mohamud - Last Filed: 09/06/18 22:13> Social History Smoking Status: Never smoker Procedures <KINGS Mohamud - Last Filed: 09/06/18 22:13> Laceration Repair Laceration 1: Site: face and other Side (If applicable): left Size (cm): 1.5 Description: linear Depth: simple, single layer Local Anesthetic: lidocaine 1% Amount of anesthesia used (mL): 1.5 Pre-repair: wound explored and irrigated extensively Skin layer closed with: nylon Size (cm): 5-0 Number of sutures: 3 Technique: simple, interrupted Course <KINGS Mohamud - Last Filed: 09/06/18 22:13> Orders Ordered: ED Orders 09/06/18 13:36 CT facial bones wo con Stat CT head/brain wo con Stat Vital Signs - 8 hr 09/06/18 15:11 Pulse Rate 45 L Respiratory Rate 16 Blood Pressure 132/54 L Pulse Oximetry 98 <Alisha Diaz DO - Last Filed: 09/07/18 07:50> Orders Ordered: ED Orders 09/06/18 13:36 CT facial bones wo con Stat CT head/brain wo con Stat Vital Signs - 8 hr 09/06/18 15:11 Pulse Rate 45 L Respiratory Rate 16 Blood Pressure 132/54 L Pulse Oximetry 98 MDM - Fall <KINGS Mohamud - Last Filed: 09/06/18 22:13> Imaging Data Facial bone CT : [place] impression[place] [id number] [place] Scan Report Signed Patient: Blessing Islas [facility]#: [id number] : 7Acct:[id number] Age/Sex: 72 / FDate of Service: 09/06/18 Loc: ED Accession Number: [id number] Procedure: CT facial bones wo con Ordering Provider: Reji Wilson PROCEDURE: CT FACIAL BONES WO CON INDICATIONS: Ground level fall hitting left side of face and forehead TECHNIQUE: Noncontrast 2.5 mm thick axial images acquired from the mandible through the frontal sinuses, with coronal and sagittal reformatting. For radiation dose reduction, the following was used: automated exposure control, adjustment of mA and/or kV according to patient size. COMPARISON: None. FINDINGS: Image quality: Excellent. Bones and teeth: Orbital rawls are intact. Sinus rawls show no fracture or deformity. Nasal bones and septum are intact. Visualized portions of the mandible demonstrate no fractures or subluxation. Zygomatic arches are intact. Pterygoid plates are intact. Visualized portions of the skull base and auditory canals are intact. Sinuses: Paranasal sinuses are aerated, without fluid levels, mucosal thickening, or mucoceles. Mastoid air cells are aerated. Soft tissues: No edema, masses, or fluid collections. No enlarged lymph nodes. No soft tissue lacerations or debris. Vascular: Visualized vascular structures appear normal in the absence of contrast. Bony vascular foramina and canals are intact. IMPRESSION: No visualized acute fracture or dislocation. However, if clinical concern and/or pain persist, short interval imaging followup in 7-10 days is recommended, as occult injury cannot be definitively excluded. Dictated by: Suzie Bird M.D. on 09/06/2018 at 13:25 Approved by: Suzie Bird M.D. on 09/06/2018 at 13:[address] : Radiologist's impression: [address] [address] [address] Scan Report Signed Patient: Blessing Islas [facility]#: [id number] : 1946Acct:[id number] Age/Sex: 72 / FDate of Service: 09/06/18 Loc: ED Accession Number: [id number] Procedure: CT head/brain wo con Ordering Provider: Reji Wilson PROCEDURE: CT HEAD/BRAIN WO CON INDICATIONS: Ground level fall hitting left side of face/forehead TECHNIQUE: Noncontrast 4.5 mm thick angled axial sections acquired from the foramen magnum to the vertex, with coronal and sagittal reformats. For radiation dose reduction, the following was used: automated exposure control, adjustment of mA and/or kV according to patient size. COMPARISON: [facility], CT, CT FACIAL BONES WO CON, 09/06/2018, 13:57. [facility], MR, MR HEAD/BRAIN WO/W CON, 03/02/2018, 7:16. [facility], CT, CT ANGIO HEAD AND NECK, 01/24/2018, 14:22. FINDINGS: Image quality: Excellent. CSF spaces: Basal cisterns are patent. No extra-axial fluid collections. The ventricles are symmetric in size and shape. Brain: No intracranial bleeds. There is cerebral volume loss for age, with resultant ventricular and sulcal prominence. There are periventricular and deep white matter chronic small vessel ischemic changes. There is intracranial internal carotid artery atherosclerosis. Unchanged calcified extra-axial right frontal mass suspicious for meningioma. Skull and face: Calvarium and visualized facial bones appear intact, without suspicious lesions. Sinuses: Visualized sinuses and mastoids are clear. IMPRESSION: 1. No acute intracranial process. 2. Moderate atrophy and chronic microvascular ischemic changes. Dictated by: Suzie Bird M.D. on 09/06/2018 at 13:22 Approved by: Suzie Bird M.D. on 09/06/2018 at 13:25 [facility] Narrative Medical decision making narrative: Laceration to the left temporal area closed with 3 5-0 nylon simple interrupted sutures patient tolerated well no complications. Wound dressed with bacitracin. Tetanus was last obtained and 2016. CT of the head was obtained was negative for any acute findings. CT of facial bones was also obtained was also negative for any acute findings. Subconjunctival hemorrhage to the left eye should resolve on its own with time. Sutures to be removed in 5-7 days. Follow up with primary care provider next week. Use [id number] Tylenol or Motrin as needed for any discomfort. For any worsening symptoms return to the emergency room. Discharge Plan Departure Patient Disposition: Home Clinical Impression: Minor closed head injury Laceration of face Qualifiers: Encounter type: initial encounter Qualified Code(s): S01.81XA - Laceration without foreign body of other part of head, initial encounter Subconjunctival hemorrhage Qualifiers: Laterality: left Qualified Code(s): H11.32 - Conjunctival hemorrhage, left eye Discharge Date/Time: 09/06/18 15:12 Interventions: ED Discharge Assessment Last Done: 09/06/18 15:11 Instructions: DI for Closed Head Injury, DI for Subconjunctival Hemorrhage Activity Restrictions/Additional Instructions: CT of the head and facial bones was obtained was negative for any acute findings. Laceration to the left face was closed with 3 sutures. Sutures removed in 5-7 days. Follow up with primary care provider for re-evaluation. Hemorrhage to the left eye should resolve on its own over a few weeks. Use [id number] Tylenol or Motrin as needed for any discomfort. Dress wound daily with bacitracin a couple times a day until healed. For any worsening symptoms return to the emergency room. Head injury instructions are provided with warning signs return to the emergency room. Prescriptions: No Action ASCORBIC ACID (#VITAMIN C) 500 mg PO QDAY Qty: 0 RF: 0 CA PANTOTHENATE/FOLIC ACID/VIT (MULTIVITAMIN) 1 tab PO QDAY Qty: 0 RF: 0 atorvastatin 20 mg tablet 20 mg PO DAILY Qty: 90 RF: 1 ubidecarenone-omega 3-vit E [Co [id number] E-Fish Oil] 25-150-200 mg-mg-unit capsule 1 cap PO DAILY RF: 0 cholecalciferol (vitamin D3) 1,000 unit capsule 1,000 unit PO DAILY RF: 0 Combigan 0.2-0.5 % Drops 1 drp ophthalmic (eye) Q12H RF: 0 nadolol 20 mg tablet 20 mg PO DAILY RF: 0 frovatriptan [Frova] 2.5 MG tablet 2.5 mg PO PRN PRN (Reason: Migraine Headache) RF: 0 Referrals: Kym Mayorga DO [Primary Care Provider] - <Alisha Diaz DO - Last Filed: 09/07/18 07:50> Cosign ED Attending [place] Attestation: I was immediately available in the department for consultation. Documentation has been reviewed. I agree with assessment and plan.
[2018-09-06 15:11] VITALS: BP 132/54; PULSE 45; RESP 16; O2SAT 98
== END 2018-09-06 15:12 | disposition home or self-care (01) ==
PROVIDERS: Emergency Provider Nurse Practitioner Family; PCP Family Medicine
DX: S00.90XA Unspecified superficial injury of unspecified part of head, initial encounter (principal); S01.81XA Laceration without foreign body of other part of head, initial encounter; H11.32 Conjunctival hemorrhage, left eye; W18.39XA Other fall on same level, initial encounter
CPT/HCPCS: 12011; 70450; 70486; 99283; 99284

== ENCOUNTER → 2019-01-29 07:01 | Outpatient (CLI) | payer OTHER, SELFPAY ==
[2019-01-29 08:16] LABS: Alanine Aminotransferase 27 IU/L (9-52); Albumin 4.3 g/dL (3.5-5.0); Albumin Globulin Ratio 1.6 (1.0-2.8); Alkaline Phosphatase 55 U/L (38-126); Aspartate Aminotransferase 27 IU/L (14-36); BUN Creatinine Ratio 34.3 (6-22); Bilirubin Total 0.5 mg/dL (0.2-1.3); Blood Urea Nitrogen 24 mg/dL (7-17); Calcium 9.5 mg/dL (8.4-10.2); Carbon Dioxide 30 mmol/L (22-32); Chloride 99 mmol/L (98-107); Cholesterol 143 mg/dL (140-199); Estimated Glomerular Filt Rate > 60.0 mL/min (>60); Globulin 2.7 g/dL (1.7-4.1); Glucose 86 mg/dL (80-110); HDL Cholesterol 62 mg/dL (40-60); HEMOLYSIS < 15 (0-50); LDL Cholesterol Calculated 67 mg/dL (<100); Potassium 4.3 mmol/L (3.4-5.1); Sodium 139 mmol/L (137-145); Triglycerides 69 mg/dL (35-150)
== END ==
PROVIDERS: PCP Family Medicine; Visit Provider Family Medicine
DX: Z00.00 Encounter for general adult medical examination without abnormal findings (principal); E78.5 Hyperlipidemia, unspecified; M85.80 Other specified disorders of bone density and structure, unspecified site
CPT/HCPCS: 36415; 80053; 80061

== ENCOUNTER → 2019-04-04 11:47 | Outpatient (CLI) | payer OTHER, SELFPAY ==
--- NOTE | 2019-04-04 13:44 | DI.RAD.S_ITS ---
PROCEDURE: XR KNEE LT 3V INDICATIONS: left knee pain, OA, tibial plateau fx? TECHNIQUE: 3 views of the knee were acquired. COMPARISON: [facility], , KNEE 3V RIGHT, 09/16/2006, 14:23. FINDINGS: Bones: No acute fracture or dislocation. Mild tricompartmental degenerative changes are noted as evidenced by small osteophyte formation. Soft tissues: Small left knee joint effusion. IMPRESSION: Small left knee joint effusion with mild tricompartmental left knee degenerative changes. Dictated by: Chris Avery M.D. on 04/04/2019 at 16:32 Approved by: Chris Avery M.D. on 04/04/2019 at 16:35
== END ==
PROVIDERS: PCP Family Medicine; Visit Provider Family Medicine
DX: M25.562 Pain in left knee (principal); M25.462 Effusion, left knee
CPT/HCPCS: 73562

== ENCOUNTER → 2019-05-20 11:11 | Outpatient (CLI) | payer OTHER, SELFPAY ==
--- NOTE | 2019-05-20 11:12 | DI.MRI.S_ITS ---
PROCEDURE: MR HEAD/BRAIN WO/W CON INDICATIONS: f/u meningioma TECHNIQUE: Noncontrast axial T1 spin echo, axial T2 fast spin echo, sagittal and axial FLAIR, coronal T2 fast spin echo, axial gradient echo, axial diffusion and ADC through the brain. After the administration of contrast, axial and coronal T1 spin echo with fat saturation through the brain. COMPARISON: [facility], CT, CT HEAD/BRAIN WO CON, 09/06/2018, 13:57. [facility], MR, MR HEAD/BRAIN WO/W CON, 03/02/2018, 7:16. FINDINGS: Image quality: Excellent. CSF spaces: Basal cisterns are patent. No extra-axial fluid collections. Ventricles are normal in size and shape. Brain: No midline shift. No intracranial bleeds or new masses. No abnormal intracranial enhancement. There is cerebral volume loss for age. There is periventricular white matter chronic small vessel ischemic change. The brainstem appears normal. Diffusion-weighted images demonstrate no acute ischemic insults. No chronic ischemic insults. Normal intravascular flow voids are present. Skull and face: Calvarial marrow is normal in signal. Orbits appear normal. Sinuses: Sinuses and mastoids appear clear. IMPRESSION: Stable appearance of a small nodular superior right parafalcine findings calcified on CT scanning, and suggestive of a small hypovascular meningioma. This measures only approximately 7 mm in maximal dimension. Dictated by: Vishal Gleason M.D. on 05/20/2019 at 13:04 Approved by: Vishal Gleason M.D. on 05/20/2019 at 13:11
== END ==
PROVIDERS: PCP Family Medicine; Visit Provider Family Medicine
DX: D32.9 Benign neoplasm of meninges, unspecified (principal)
CPT/HCPCS: 70553

== ENCOUNTER 2019-05-21 12:45 | Outpatient (RCR) | payer OTHER, SELFPAY ==
--- NOTE | 2019-04-30 16:30 | PT.OPPOC ---
Current Diagnoses Pain in left knee (05/03/19) Visit Care Team Role Provider Type yKm Mayorga DO Attending Provider Physician Primary Care Provider Specialty: [facility] Address: [address] [place] [address], [address], [place], [address] Email: [email or web address] Plan Of Care PT-OP-T Assessment and Plan Start: 04/27/19 16:07 Freq: Status: Active Protocol: Document 04/30/19 12:48 LRN (Rec: 05/03/19 10:25 LRN [id number]) Physical Therapy Assessment Rehab Potential Rehabilitation Potential Excellent Evaluation Complexity Number of Personal Factors/Comorbidities 1-2 Number of Body Systems Impaired 4 or More Clinical Presentation at Evaluation Evolving Impairments Impairments Pain,Posture,ROM,Strength Goals Three Impairment Decreased L knee AROM (3-125, 0-142 right) Student Accounts Manager Goal (LTG) Improve L knee AROM with pt able to participate with yoga and Sai for her health and transfer without pain. LTG Duration 07/02/19 Two Impairment L knee pain rated 3/10 Short Term Goal (STG) Decrease pain to 2/10 STG Duration 06/01/19 Penitentiary Goal (LTG) Decrease pain to 1/10 with pt able to walk dog without pain. LTG Duration 07/02/19 One Impairment Lacks self care HEP Penitentiary Goal (LTG) Pt will be independent in a self care HEP. 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 Pt will benefit from skilled physical therapy to improve knee strength and stability and will benefit from an independent HEP to progress with her program as she tolerates. Physical Therapy Plan Frequency and Duration Frequency of Treatment 2x/Week Plan of Care Start Date 04/30/19 Plan of Care End Date 07/02/19 Therapeutic Interventions Therapeutic Interventions Gait Training,Home Exercise Program,Joint Mobilizations, Manual Therapy,Neuromuscular Re-education,Self-Care/Home Management,Soft Tissue Mobilization,Taping, Therapeutic Exercises Modalities Cold Pack/Ice Massage,Electric Stimulation,Hot Packs, Ultrasound Next Visit Focus/Plan Next Note Type Treatment Note Next Visit Plan Start with possible K-taping of L knee for PFP, then CKC warm up, f/b ROM to normalize AROM and strengthening ex's to focus first on medial quads and hip AB, as well as hip rotators. End with modalities for pain management as needed . Address soft tissue restrictions of the LB if needed. Plan of Care Dates Plan of Care Start Date 04/30/19 Plan of Care End Date 07/02/19
--- NOTE | 2019-04-30 16:30 | PT.OIE ---
Current Diagnoses Pain in left knee (05/03/19) Past Medical History (Last Reviewed 01/24/18 @ 15:13 by KINGS Mohamud) Abnormal Pap smear of cervix (Resolved 2001) Chronic headaches (Chronic 1996) 1 para 1 (Resolved) Hayfever (Chronic) History of eczema as a child (Resolved) Meningioma (Chronic) Menopause (Resolved ~1995) Myopia (Chronic 2010) Retinal degeneration (Chronic 2010) SVT (supraventricular tachycardia) (Chronic 2003) Past Surgical History (Last Reviewed 01/24/18 @ 15:13 by KINGS Mohamud) Severe nausea following anesthesia (Resolved) Status post colonoscopy (Resolved 2013) Status post tubal ligation (Resolved 1994) Visit Care Team Role Provider Type Kym Mayorga DO Attending Provider Physician Primary Care Provider Specialty: [facility] Address: [address] [place] [address], [address], [facility] Email: [email or web address] Physical Therapy Initial Evaluation PT-OP-A Visit Information Start: 04/27/19 16:07 Freq: Status: Active Protocol: Document 04/30/19 12:48 LRN (Rec: 05/03/19 08:13 LRN [id number]) Out-Patient Physical Therapy Visit Information Visit Information Visit Type Initial Evaluation Visit Start Time 12:48 Visit Stop Time 13:30 Total Visit Minutes 58 Visit Number 1 Number of EXTRUSION MANAGER Visits 0 Evaluation Information Evaluation Date 04/30/19 Precautions Precautions Per pt history and intake form : Osteopenia, Bruises easily, Bradycardia, cervicalgia, chronic headache, meningioma- chronic, minor closed head injury 2017, history of torn rotator cuff. PT-OP-B Current Condition Start: 04/27/19 16:07 Freq: Status: Active Protocol: Document 04/30/19 12:48 LRN (Rec: 05/03/19 08:13 LRN [id number]) Current Condition History of Current Condition Onset Date 03/2019 Current Complaints L knee pain inferior to the patella medially where varicose vein is History of Current Condition Pt reports falling 08/2018 for reasons unknown. She has had occasional L medial and inferior to patella knee pain rated 3/10. She states she walks a lot. At her regular check up she had an X-ray taken and was told she has degneration all around the knee. 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 Developmental History Developmental History At home 12 yrs ago at age 61 she fell onto the L knee because her foot caught on a carpet causing her to fall with her head hitting a shredder machine. She got up and sat down for 1/2 hour and had difficulty getting up due to pain. She noted that her knee was quite swollen after sitting for that short period of time. She went to ER but X -rays showed no fractures, but a few days later had R shoulder pain and later found she had a torn rotator cuff. She states she healed a few weeks later. She Treatment Goals Patient/Caregiver Goals Pt goal is to strengthen the knees to decrease pain and to continue on her own with a home program. Prior Functional Status Baseline Function- ADL's Independent Baseline Function- Mobility Independent Baseline Function- Gait Gait with occasional L knee pain. Baseline Function- Recreation/Hobbies Walk dog without knee pain. Yoga and Sai 2x/week. Current Functional Impairments (Reported) Functional Limitations- ADL's L knee pain with walking. Functional Limitations- Recreation/ L knee pain with yoga & Sai. Hobbies Personal Factors Other Personal Factors That May Effect Bruises easily, pt has had a Therapy/Recovery history of falls recently (2 in last month). PT-OP-C Subjective Start: 04/27/19 16:07 Freq: Status: Active Protocol: Document 04/30/19 12:48 LRN (Rec: 05/03/19 10:25 LRN [id number]) Patient Questionnaires Lower Extremity Functional Scale LEFS Score 70. LEFS Impairment 1 to 19% Impaired (Score 63-79 ) OP-PT Pain Assessment Pain Assessment Grid Paper Pain Assessment Grid Completed Yes Location L knee Pain Location Details Around L knee and lateral upper/lower leg. Intensity 3 Scale Used Numeric (1 - 10) Description Aching,Sharp Frequency Intermittent Pain Aggravating Factors Changing Position,Activity, Standing,Walking PT-OP-G Mobility & Gait Start: 04/27/19 16:07 Freq: Status: Active Protocol: Document 04/30/19 12:48 LRN (Rec: 05/03/19 12:43 LRN [id number]) Stair Climbing Evaluation Evaluation Level of Assist On Stairs Independent Devices Stair Climbing Assistive Devices None Technique/Endurance Stair Climbing Direction Ascend and Descend Stair Climbing Technique Step Over Step Number of Steps Climbed 4 PT-OP-H Neuro Start: 04/27/19 16:07 Freq: Status: Active Protocol: Document 04/30/19 12:48 LRN (Rec: 05/03/19 10:25 LRN [id number]) Sensation Evaluation Gross Sensation Gross Sensation WNL Comments Summary Comments Pt reports tingling on plantar surface of feet at nighttime Deep Tendon Reflex & Clonus Assessment Deep Tendon Reflex Bilateral Achilles Deep Tendon Reflex 2+ Normal Bilateral Patellar Deep Tendon Reflex 2+ Normal PT-OP-J Posture/Palpation/Skin Start: 04/27/19 16:07 Freq: Status: Active Protocol: Document 04/30/19 12:48 LRN (Rec: 05/03/19 10:25 LRN [id number]) Posture Evaluation Position Standing L-Spine Posture Increased Lordosis Shoulder Posture (L) Elevated Scapula Posture (R) Depressed Pelvis Posture Anteriorly Tilted Knee Posture (L) Genu Valgus,(R) Genu Valgus Ankle/Foot Posture (L) Calcaneal Eversion Foot Arch (L) Low Arch,(R) Low Arch Comments Posture Comments Valgus of knees bilaterally, pes cavus bilaterally. Palpation Assessment Location L knee Palpation Location Around patella Palpation Findings Tenderness PT-OP-K Range of Motion Start: 04/27/19 16:07 Freq: Status: Active Protocol: Document 04/30/19 12:48 LRN (Rec: 05/03/19 10:25 LRN [id number]) Knee Goniometric Range of Motion Knee Right Knee ROM WFL Yes Flexion Active (degrees) 142 Extension Active (degrees) 0 Left Knee ROM WFL No Flexion Active (degrees) 125 Knee ROM Limitations Comments L knee lacks 3 deg's active extension PT-OP-M Strength Start: 04/27/19 16:07 Freq: Status: Active Protocol: Document 04/30/19 12:48 LRN (Rec: 05/03/19 10:25 LRN [id number]) Hip Strength Hip Manual Muscle Testing Right Abduction 3+ Fair+ External Rotation 3+ Fair+ Internal Rotation 3 Fair Comments Strength is 5/5 except those listed above. Left Abduction 3 Fair External Rotation 3 Fair Internal Rotation 3 Fair Comments Strength is 5/5 except those listed above Knee Strength Knee Manual Muscle Testing Right Flexion (S2) 5 Normal Left Flexion (S2) 5 Normal Ankle/Foot Strength Ankle and Foot Manual Muscle Testing Right Reason Not Measured WFL Left Reason Not Measured WFL PT-OP-Q Treatments Start: 04/27/19 16:07 Freq: Status: Active Protocol: Document 04/30/19 12:48 LRN (Rec: 05/03/19 12:43 LRN [id number]) Self-Care/Home Management Treatment Education Patient Education Home Exercise Program Other Education Discussed use of CONCETTA wrap with L knee. I/S pt in how to wrap . Recommended pt to bring wrap in if she needs assist. Educated pt in edema management (RICE treatment). Activities Self-Care/Home Management Activities I/S pt in HEP: QS, active knee flexion. PT-OP-T Assessment and Plan Start: 04/27/19 16:07 Freq: Status: Active Protocol: Document 04/30/19 12:48 LRN (Rec: 05/03/19 10:25 LRN [id number]) Physical Therapy Assessment Rehab Potential Rehabilitation Potential Excellent Evaluation Complexity Number of Personal Factors/Comorbidities 1-2 Number of Body Systems Impaired 4 or More Clinical Presentation at Evaluation Evolving Impairments Impairments Pain,Posture,ROM,Strength Goals Three Impairment Decreased L knee AROM (3-125, 0-142 right) Halfway Goal (LTG) Improve L knee AROM with pt able to participate with yoga and Sai for her health and transfer without pain. LTG Duration 07/02/19 Two Impairment L knee pain rated 3/10 Short Term Goal (STG) Decrease pain to 2/10 STG Duration 06/01/19 Marker Machine Goal (LTG) Decrease pain to 1/10 with pt able to walk dog without pain. LTG Duration 07/02/19 One Impairment Lacks self care HEP Marker Machine Goal (LTG) Pt will be independent in a self care HEP. 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 Pt will benefit from skilled physical therapy to improve knee strength and stability and will benefit from an independent HEP to progress with her program as she tolerates. Physical Therapy Plan Frequency and Duration Frequency of Treatment 2x/Week Plan of Care Start Date 11/12/19 Plan of Care End Date 07/02/19 Therapeutic Interventions Therapeutic Interventions Gait Training,Home Exercise Program,Joint Mobilizations, Manual Therapy,Neuromuscular Re-education,Self-Care/Home Management,Soft Tissue Mobilization,Taping, Therapeutic Exercises Modalities Cold Pack/Ice Massage,Electric Stimulation,Hot Packs, Ultrasound Next Visit Focus/Plan Next Note Type Treatment Note Next Visit Plan Start with possible K-taping of L knee for PFP, then CKC warm up, f/b ROM to normalize AROM and strengthening ex's to focus first on medial quads and hip AB, as well as hip rotators. End with modalities for pain management as needed . Address soft tissue restrictions of the LB if needed.
--- NOTE | 2019-05-03 16:53 | PT.OTN ---
Current Diagnoses Pain in left knee (05/03/19) Physical Therapy Treatment Note PT-OP-A Visit Information Start: 04/27/19 16:07 Freq: Status: Active Protocol: Document 05/03/19 11:30 LRN (Rec: 05/03/19 16:51 LRN [id number]) Out-Patient Physical Therapy Visit Information Visit Information Visit Type Treatment Note Visit Start Time 11:30 Visit Stop Time 12:15 Total Visit Minutes 45 Evaluation Information Evaluation Date 04/30/19 Precautions Precautions Per pt history and intake form : Osteopenia, Bruises easily, Bradycardia, cervicalgia, chronic headache, meningioma- chronic, minor closed head injury 2018, history of torn rotator cuff. PT-OP-B Current Condition Start: 04/27/19 16:07 Freq: Status: Active Protocol: Document 04/30/19 12:48 LRN (Rec: 05/03/19 08:13 LRN [id number]) Current Condition History of Current Condition Onset Date 03/2019 Current Complaints L knee pain inferior to the patella medially where varicose vein is History of Current Condition Pt reports falling 08/2018 for reasons unknown. She has had occasional L medial and inferior to patella knee pain rated 3/10. She states she walks a lot. At her regular check up she had an X-ray taken and was told she has degneration all around the knee. 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 Developmental History Developmental History At home 12 yrs ago at age 61 she fell onto the L knee because her foot caught on a carpet causing her to fall with her head hitting a shredder machine. She got up and sat down for 1/2 hour and had difficulty getting up due to pain. She noted that her knee was quite swollen after sitting for that short period of time. She went to ER but X -rays showed no fractures, but a few days later had R shoulder pain and later found she had a torn rotator cuff. She states she healed a few weeks later. She Treatment Goals Patient/Caregiver Goals Pt goal is to strengthen the knees to decrease pain and to continue on her own with a home program. Prior Functional Status Baseline Function- ADL's Independent Baseline Function- Mobility Independent Baseline Function- Gait Gait with occasional L knee pain. Baseline Function- Recreation/Hobbies Walk dog without knee pain. Yoga and Sai 2x/week. Current Functional Impairments (Reported) Functional Limitations- ADL's L knee pain with walking. Functional Limitations- Recreation/ L knee pain with yoga & Sai. Hobbies Personal Factors Other Personal Factors That May Effect Bruises easily, pt has had a Therapy/Recovery history of falls recently (2 in last month). PT-OP-C Subjective Start: 04/27/19 16:07 Freq: Status: Active Protocol: Document 04/30/19 11:30 LRN (Rec: 05/03/19 10:25 LRN [id number]) OP-PT Subjective Patient Comments Patient Comments No change. L knee pain is intermittent and sharp. Brought in CONCETTA wrap for knee.. Patient Questionnaires Lower Extremity Functional Scale LEFS Score 70. LEFS Impairment 1 to 19% Impaired (Score 63-79 ) OP-PT Pain Assessment Pain Assessment Grid Paper Pain Assessment Grid Completed Yes Location L knee Pain Location Details Around L knee and lateral upper/lower leg. Intensity 3 Scale Used Numeric (1 - 10) Description Aching,Sharp Frequency Intermittent Pain Aggravating Factors Changing Position,Activity, Standing,Walking PT-OP-G Mobility & Gait Start: 04/27/19 16:07 Freq: Status: Active Protocol: Document 04/30/19 12:48 LRN (Rec: 05/03/19 12:43 LRN [id number]) Stair Climbing Evaluation Evaluation Level of Assist On Stairs Independent Devices Stair Climbing Assistive Devices None Technique/Endurance Stair Climbing Direction Ascend and Descend Stair Climbing Technique Step Over Step Number of Steps Climbed 4 PT-OP-H Neuro Start: 04/27/19 16:07 Freq: Status: Active Protocol: Document 04/30/19 12:48 LRN (Rec: 05/03/19 10:25 LRN [id number]) Sensation Evaluation Gross Sensation Gross Sensation WNL Comments Summary Comments Pt reports tingling on plantar surface of feet at nighttime Deep Tendon Reflex & Clonus Assessment Deep Tendon Reflex Bilateral Achilles Deep Tendon Reflex 2+ Normal Bilateral Patellar Deep Tendon Reflex 2+ Normal PT-OP-J Posture/Palpation/Skin Start: 04/27/19 16:07 Freq: Status: Active Protocol: Document 04/30/19 12:48 LRN (Rec: 05/03/19 10:25 LRN [id number]) Posture Evaluation Position Standing L-Spine Posture Increased Lordosis Shoulder Posture (L) Elevated Scapula Posture (R) Depressed Pelvis Posture Anteriorly Tilted Knee Posture (L) Genu Valgus,(R) Genu Valgus Ankle/Foot Posture (L) Calcaneal Eversion Foot Arch (L) Low Arch,(R) Low Arch Comments Posture Comments Valgus of knees bilaterally, pes cavus bilaterally. Palpation Assessment Location L knee Palpation Location Around patella Palpation Findings Tenderness PT-OP-K Range of Motion Start: 04/27/19 16:07 Freq: Status: Active Protocol: Document 04/30/19 12:48 LRN (Rec: 05/03/19 10:25 LRN [id number]) Knee Goniometric Range of Motion Knee Right Knee ROM WFL Yes Flexion Active (degrees) 142 Extension Active (degrees) 0 Left Knee ROM WFL No Flexion Active (degrees) 125 Knee ROM Limitations Comments L knee lacks 3 deg's active extension PT-OP-M Strength Start: 04/27/19 16:07 Freq: Status: Active Protocol: Document 04/30/19 12:48 LRN (Rec: 05/03/19 10:25 LRN [id number]) Hip Strength Hip Manual Muscle Testing Right Abduction 3+ Fair+ External Rotation 3+ Fair+ Internal Rotation 3 Fair Comments Strength is 5/5 except those listed above. Left Abduction 3 Fair External Rotation 3 Fair Internal Rotation 3 Fair Comments Strength is 5/5 except those listed above Knee Strength Knee Manual Muscle Testing Right Flexion (S2) 5 Normal Left Flexion (S2) 5 Normal Ankle/Foot Strength Ankle and Foot Manual Muscle Testing Right Reason Not Measured WFL Left Reason Not Measured WFL PT-OP-Q Treatments Start: 04/27/19 16:07 Freq: Status: Active Protocol: Document 05/03/19 11:30 LRN (Rec: 05/03/19 16:51 LRN [id number]) Cardio Equipment Bicycle (Upright) Duration (Minutes) 8 Resistance 3 Seat Position 3 Other 70+ rpm Therapeutic Exercises Supine Exercises SLR Supine Exercise Name SLR: foot at 12 & 10 O'Clock Side left Reps/Minutes 10x each Fig 4 stretch Supine Exercise Name Fig 4 stretch, f/b active stretch Side bilateral Reps/Minutes 60 stretch f/b active ER x 10 QS & Active knee flex review Supine Exercise Name QS, Active knee flex Side left Reps/Minutes 5x Gait Training Gait Activity Gait speed Description Normal gait speed Device Used none Level of Assistance none Surface level Distance/Duration 100 ft Treatment Focus normal gait speed with good balance Comments Gt speed = 3.11 ft/sec Stair ambulation Description Ascend/Descend steps with neutral LE positioning Device Used none Level of Assistance none Distance/Duration 12 Treatment Focus Control of LE positioning and controlled descent Self-Care/Home Management Treatment Education Patient Education Home Exercise Program Other Education Educated pt in safe and proper CONCETTA wrapping of the L knee. Activities Self-Care/Home Management Activities Issued & reviewed HEP: QS, heel slides, SLR, sidelie hip AD. PT-OP-T Assessment and Plan Start: 04/27/19 16:07 Freq: Status: Active Protocol: Document 05/03/19 11:30 LRN (Rec: 05/03/19 16:51 LRN [id number]) Physical Therapy Assessment Goals Three Impairment Decreased L knee AROM (3-125, 0-142 right) Respiratory Manager Goal (LTG) Improve L knee AROM with pt able to participate with yoga and Sai for her health and transfer without pain. LTG Duration 07/02/19 Two Impairment L knee pain rated 3/10 Short Term Goal (STG) Decrease pain to 2/10 STG Duration 06/01/19 Respiratory Manager Goal (LTG) Decrease pain to 1/10 with pt able to walk dog without pain. LTG Duration 07/02/19 One Impairment Lacks self care HEP Fpc Goal (LTG) Pt will be independent in a self care HEP. LTG Duration 07/02/19 Assessment Summary Assessment Pt shows good recall of home ex's of QS and active knee flexion. She appears to have a good understanding of how to safely wrap her L knee for edema management. The pt ER's her feet and has poor control with descending stairs. Lacks eccentric strength in quads. Gt speed = 3.11 ft/sec. Physical Therapy Plan Frequency and Duration Frequency of Treatment 2x/Week Plan of Care Start Date 04/30/19 Plan of Care End Date 07/02/19 Next Visit Focus/Plan Next Note Type Treatment Note Next Visit Plan Assess response to use of CONCETTA wrap to L knee. Possible K- taping of L knee for PFP, then CKC warm up, f/b ROM and medial knee & hip AB's strengthening, as well as hip rotators. End with modalities for pain management as needed . Address soft tissue restrictions of the LB if needed.
--- NOTE | 2019-05-03 16:56 | PT.OTN ---
Current Diagnoses Pain in left knee (05/03/19) Physical Therapy Treatment Note PT-OP-A Visit Information Start: 04/27/19 16:07 Freq: Status: Active Protocol: Document 05/03/19 11:30 LRN (Rec: 05/03/19 16:51 LRN [id number]) Out-Patient Physical Therapy Visit Information Visit Information Visit Type Treatment Note Visit Start Time 11:30 Visit Stop Time 12:15 Total Visit Minutes 45 Evaluation Information Evaluation Date 04/30/19 Precautions Precautions Per pt history and intake form : Osteopenia, Bruises easily, Bradycardia, cervicalgia, chronic headache, meningioma- chronic, minor closed head injury 2018, history of torn rotator cuff. PT-OP-B Current Condition Start: 04/27/19 16:07 Freq: Status: Active Protocol: Document 04/30/19 12:48 LRN (Rec: 05/03/19 08:13 LRN [id number]) Current Condition History of Current Condition Onset Date 03/2019 Current Complaints L knee pain inferior to the patella medially where varicose vein is History of Current Condition Pt reports falling 08/2018 for reasons unknown. She has had occasional L medial and inferior to patella knee pain rated 3/10. She states she walks a lot. At her regular check up she had an X-ray taken and was told she has degneration all around the knee. 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 Developmental History Developmental History At home 12 yrs ago at age 61 she fell onto the L knee because her foot caught on a carpet causing her to fall with her head hitting a shredder machine. She got up and sat down for 1/2 hour and had difficulty getting up due to pain. She noted that her knee was quite swollen after sitting for that short period of time. She went to ER but X -rays showed no fractures, but a few days later had R shoulder pain and later found she had a torn rotator cuff. She states she healed a few weeks later. She Treatment Goals Patient/Caregiver Goals Pt goal is to strengthen the knees to decrease pain and to continue on her own with a home program. Prior Functional Status Baseline Function- ADL's Independent Baseline Function- Mobility Independent Baseline Function- Gait Gait with occasional L knee pain. Baseline Function- Recreation/Hobbies Walk dog without knee pain. Yoga and Sai 2x/week. Current Functional Impairments (Reported) Functional Limitations- ADL's L knee pain with walking. Functional Limitations- Recreation/ L knee pain with yoga & Sai. Hobbies Personal Factors Other Personal Factors That May Effect Bruises easily, pt has had a Therapy/Recovery history of falls recently (2 in last month). PT-OP-C Subjective Start: 04/27/19 16:07 Freq: Status: Active Protocol: Document 04/30/19 11:30 LRN (Rec: 05/03/19 10:25 LRN [id number]) OP-PT Subjective Patient Comments Patient Comments No change. L knee pain is intermittent and sharp. Brought in CONCETTA wrap for knee.. Patient Questionnaires Lower Extremity Functional Scale LEFS Score 70. LEFS Impairment 1 to 19% Impaired (Score 63-79 ) OP-PT Pain Assessment Pain Assessment Grid Paper Pain Assessment Grid Completed Yes Location L knee Pain Location Details Around L knee and lateral upper/lower leg. Intensity 3 Scale Used Numeric (1 - 10) Description Aching,Sharp Frequency Intermittent Pain Aggravating Factors Changing Position,Activity, Standing,Walking PT-OP-G Mobility & Gait Start: 04/27/19 16:07 Freq: Status: Active Protocol: Document 04/30/19 12:48 LRN (Rec: 05/03/19 12:43 LRN [id number]) Stair Climbing Evaluation Evaluation Level of Assist On Stairs Independent Devices Stair Climbing Assistive Devices None Technique/Endurance Stair Climbing Direction Ascend and Descend Stair Climbing Technique Step Over Step Number of Steps Climbed 4 PT-OP-H Neuro Start: 04/27/19 16:07 Freq: Status: Active Protocol: Document 04/30/19 12:48 LRN (Rec: 05/03/19 10:25 LRN [id number]) Sensation Evaluation Gross Sensation Gross Sensation WNL Comments Summary Comments Pt reports tingling on plantar surface of feet at nighttime Deep Tendon Reflex & Clonus Assessment Deep Tendon Reflex Bilateral Achilles Deep Tendon Reflex 2+ Normal Bilateral Patellar Deep Tendon Reflex 2+ Normal PT-OP-J Posture/Palpation/Skin Start: 04/27/19 16:07 Freq: Status: Active Protocol: Document 04/30/19 12:48 LRN (Rec: 05/03/19 10:25 LRN [id number]) Posture Evaluation Position Standing L-Spine Posture Increased Lordosis Shoulder Posture (L) Elevated Scapula Posture (R) Depressed Pelvis Posture Anteriorly Tilted Knee Posture (L) Genu Valgus,(R) Genu Valgus Ankle/Foot Posture (L) Calcaneal Eversion Foot Arch (L) Low Arch,(R) Low Arch Comments Posture Comments Valgus of knees bilaterally, pes cavus bilaterally. Palpation Assessment Location L knee Palpation Location Around patella Palpation Findings Tenderness PT-OP-K Range of Motion Start: 04/27/19 16:07 Freq: Status: Active Protocol: Document 04/30/19 12:48 LRN (Rec: 05/03/19 10:25 LRN [id number]) Knee Goniometric Range of Motion Knee Right Knee ROM WFL Yes Flexion Active (degrees) 142 Extension Active (degrees) 0 Left Knee ROM WFL No Flexion Active (degrees) 125 Knee ROM Limitations Comments L knee lacks 3 deg's active extension PT-OP-M Strength Start: 04/27/19 16:07 Freq: Status: Active Protocol: Document 04/30/19 12:48 LRN (Rec: 05/03/19 10:25 LRN [id number]) Hip Strength Hip Manual Muscle Testing Right Abduction 3+ Fair+ External Rotation 3+ Fair+ Internal Rotation 3 Fair Comments Strength is 5/5 except those listed above. Left Abduction 3 Fair External Rotation 3 Fair Internal Rotation 3 Fair Comments Strength is 5/5 except those listed above Knee Strength Knee Manual Muscle Testing Right Flexion (S2) 5 Normal Left Flexion (S2) 5 Normal Ankle/Foot Strength Ankle and Foot Manual Muscle Testing Right Reason Not Measured WFL Left Reason Not Measured WFL PT-OP-Q Treatments Start: 04/27/19 16:07 Freq: Status: Active Protocol: Document 05/03/19 11:30 LRN (Rec: 05/03/19 16:51 LRN [id number]) Cardio Equipment Bicycle (Upright) Duration (Minutes) 8 Resistance 3 Seat Position 3 Other 70 rpm Therapeutic Exercises Supine Exercises SLR Supine Exercise Name SLR: foot at 12 & 10 O'Clock Side left Reps/Minutes 10x each Fig 4 stretch Supine Exercise Name Fig 4 stretch, f/b active stretch Side bilateral Reps/Minutes 60 stretch f/b active ER x 10 QS & Active knee flex review Supine Exercise Name QS, Active knee flex. Side left Reps/Minutes 5x Gait Training Gait Activity Gait speed Description Normal gait speed Device Used none Level of Assistance none Surface level Distance/Duration 100 ft Treatment Focus normal gait speed with good balance Comments Gt speed = 3.11 ft/sec Stair ambulation Description Ascend/Descend steps with neutral LE positioning Device Used none Level of Assistance none Distance/Duration 12 Treatment Focus Control of LE positioning and controlled descent. Self-Care/Home Management Treatment Education Patient Education Home Exercise Program Other Education Educated pt in safe and proper CONCETTA wrapping of the L knee. Activities Self-Care/Home Management Activities Issued & reviewed HEP: QS, heel slides, SLR, sidelie hip AD PT-OP-T Assessment and Plan Start: 04/27/19 16:07 Freq: Status: Active Protocol: Document 05/03/19 11:30 LRN (Rec: 05/03/19 16:51 LRN [id number]) Physical Therapy Assessment Goals Three Impairment Decreased L knee AROM (3-125, 0-142 right) Customer Relations Advisor Goal (LTG) Improve L knee AROM with pt able to participate with yoga and Sai for her health and transfer without pain. LTG Duration 07/02/19 Two Impairment L knee pain rated 3/10 Short Term Goal (STG) Decrease pain to 2/10 STG Duration 06/01/19 Customer Relations Advisor Goal (LTG) Decrease pain to 1/10 with pt able to walk dog without pain. LTG Duration 07/02/19 One Impairment Lacks self care HEP Senior Living Goal (LTG) Pt will be independent in a self care HEP. LTG Duration 07/02/19 Assessment Summary Assessment Pt shows good recall of home ex's of QS and active knee flexion. She appears to have a good understanding of how to safely wrap her L knee for edema management. The pt ER's her feet and has poor control with descending stairs. Lacks eccentric strength in quads. Gt speed = 3.11 ft/sec. Physical Therapy Plan Frequency and Duration Frequency of Treatment 2x/Week Plan of Care Start Date 04/30/19 Plan of Care End Date 07/02/19 Next Visit Focus/Plan Next Note Type Treatment Note Next Visit Plan Assess response to use of CONCETTA wrap to L knee. Possible K- taping of L knee for PFP, then CKC warm up, f/b ROM and medial knee & hip AB's strengthening, as well as hip rotators. End with modalities for pain management as needed . Address soft tissue restrictions of the LB if needed.
--- NOTE | 2019-05-07 14:20 | PT.OTN ---
Current Diagnoses Pain in left knee (05/07/19) Physical Therapy Treatment Note PT-OP-A Visit Information Start: 04/27/19 16:07 Freq: Status: Active Protocol: Document 05/07/19 13:36 LRN (Rec: 05/07/19 14:19 LRN [id number]) Out-Patient Physical Therapy Visit Information Visit Information Visit Type Treatment Note Visit Start Time 13:36 Visit Stop Time 14:17 Total Visit Minutes 41 Visit Number 3 Number of LINUX ADMIN Visits 0 Evaluation Information Evaluation Date 04/30/19 Precautions Precautions Per pt history and intake form : Osteopenia, Bruises easily, Bradycardia, cervicalgia, chronic headache, meningioma- chronic, minor closed head injury 2018, history of torn rotator cuff. PT-OP-B Current Condition Start: 04/27/19 16:07 Freq: Status: Active Protocol: Document 04/30/19 12:48 LRN (Rec: 05/03/19 08:13 LRN [id number]) Current Condition History of Current Condition Onset Date 03/2019 Current Complaints L knee pain inferior to the patella medially where varicose vein is History of Current Condition Pt reports falling 08/2018 for reasons unknown. She has had occasional L medial and inferior to patella knee pain rated 3/10. She states she walks a lot. At her regular check up she had an X-ray taken and was told she has degneration all around the knee. 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 Developmental History Developmental History At home 12 yrs ago at age 61 she fell onto the L knee because her foot caught on a carpet causing her to fall with her head hitting a shredder machine. She got up and sat down for 1/2 hour and had difficulty getting up due to pain. She noted that her knee was quite swollen after sitting for that short period of time. She went to ER but X -rays showed no fractures, but a few days later had R shoulder pain and later found she had a torn rotator cuff. She states she healed a few weeks later. She Treatment Goals Patient/Caregiver Goals Pt goal is to strengthen the knees to decrease pain and to continue on her own with a home program. Prior Functional Status Baseline Function- ADL's Independent Baseline Function- Mobility Independent Baseline Function- Gait Gait with occasional L knee pain. Baseline Function- Recreation/Hobbies Walk dog without knee pain. Yoga and Sai 2x/week. Current Functional Impairments (Reported) Functional Limitations- ADL's L knee pain with walking. Functional Limitations- Recreation/ L knee pain with yoga & Sai. Hobbies Personal Factors Other Personal Factors That May Effect Bruises easily, pt has had a Therapy/Recovery history of falls recently (2 in last month). PT-OP-C Subjective Start: 04/27/19 16:07 Freq: Status: Active Protocol: Document 05/07/19 13:36 LRN (Rec: 05/07/19 14:19 LRN [id number]) OP-PT Subjective Patient Comments Patient Comments States L knee has had less sharp pain. Did Sai today and no pain on L knee, R knee hurt. PT-OP-G Mobility & Gait Start: 04/27/19 16:07 Freq: Status: Active Protocol: Document 04/30/19 12:48 LRN (Rec: 05/03/19 12:43 LRN [id number]) Stair Climbing Evaluation Evaluation Level of Assist On Stairs Independent Devices Stair Climbing Assistive Devices None Technique/Endurance Stair Climbing Direction Ascend and Descend Stair Climbing Technique Step Over Step Number of Steps Climbed 4 PT-OP-H Neuro Start: 04/27/19 16:07 Freq: Status: Active Protocol: Document 04/30/19 12:48 LRN (Rec: 05/03/19 10:25 LRN [id number]) Sensation Evaluation Gross Sensation Gross Sensation WNL Comments Summary Comments Pt reports tingling on plantar surface of feet at nighttime Deep Tendon Reflex & Clonus Assessment Deep Tendon Reflex Bilateral Achilles Deep Tendon Reflex 2+ Normal Bilateral Patellar Deep Tendon Reflex 2+ Normal PT-OP-J Posture/Palpation/Skin Start: 04/27/19 16:07 Freq: Status: Active Protocol: Document 04/30/19 12:48 LRN (Rec: 05/03/19 10:25 LRN [id number]) Posture Evaluation Position Standing L-Spine Posture Increased Lordosis Shoulder Posture (L) Elevated Scapula Posture (R) Depressed Pelvis Posture Anteriorly Tilted Knee Posture (L) Genu Valgus,(R) Genu Valgus Ankle/Foot Posture (L) Calcaneal Eversion Foot Arch (L) Low Arch,(R) Low Arch Comments Posture Comments Valgus of knees bilaterally, pes cavus bilaterally. Palpation Assessment Location L knee Palpation Location Around patella Palpation Findings Tenderness PT-OP-K Range of Motion Start: 04/27/19 16:07 Freq: Status: Active Protocol: Document 04/30/19 12:48 LRN (Rec: 05/03/19 10:25 LRN [id number]) Knee Goniometric Range of Motion Knee Right Knee ROM WFL Yes Flexion Active (degrees) 142 Extension Active (degrees) 0 Left Knee ROM WFL No Flexion Active (degrees) 125 Knee ROM Limitations Comments L knee lacks 3 deg's active extension PT-OP-M Strength Start: 04/27/19 16:07 Freq: Status: Active Protocol: Document 04/30/19 12:48 LRN (Rec: 05/03/19 10:25 LRN [id number]) Hip Strength Hip Manual Muscle Testing Right Abduction 3+ Fair+ External Rotation 3+ Fair+ Internal Rotation 3 Fair Comments Strength is 5/5 except those listed above. Left Abduction 3 Fair External Rotation 3 Fair Internal Rotation 3 Fair Comments Strength is 5/5 except those listed above Knee Strength Knee Manual Muscle Testing Right Flexion (S2) 5 Normal Left Flexion (S2) 5 Normal Ankle/Foot Strength Ankle and Foot Manual Muscle Testing Right Reason Not Measured WFL Left Reason Not Measured WFL PT-OP-Q Treatments Start: 04/27/19 16:07 Freq: Status: Active Protocol: Document 05/07/19 13:36 LRN (Rec: 05/07/19 14:19 LRN [id number]) Cardio Equipment Bicycle (Upright) Duration (Minutes) 9 Resistance 3 Seat Position 3 Other 70 rpm Therapeutic Exercises Supine Exercises SLR Supine Exercise Name SLR: foot at 12 & 10 O'Clock Side left Resistance 1# Reps/Minutes 10x each Fig 4 stretch Supine Exercise Name Fig 4 stretch, f/b active stretch Side bilateral Reps/Minutes 60 stretch f/b active ER x 10 QS & Active knee flex review Supine Exercise Name QS, Active knee flex. Side left Reps/Minutes 8x Prone Exercises Richard Hamstring Curls Prone Exercise Name Richard Hamstring Curls Side bilateral Equipment Used 2# Reps/Minutes 10x 3 L Hamstring curls Prone Exercise Name Hamstring Curl Side left Reps/Minutes 10x Quad stretch Prone Exercise Name CR Quad stretch Side left Reps/Minutes 3' Sidelying Exercises Reverse Clamshell Sidelying Exercise Name Reverse Clamshell Side left Reps/Minutes 15x Clamshell Sidelying Exercise Name Clamshell Side left Resistance 1# Reps/Minutes 15x Hip AB Sidelying Exercise Name Hip AB Side right Resistance 1# Reps/Minutes 10x Standing Exercises Step ups Standing Exercise Name 6 step ups for ECC strengthening Equipment Used 6 steps Reps/Minutes 3' Comments 10x each leg leading Self-Care/Home Management Treatment Education Patient Education Joint Protection Activities Self-Care/Home Management Activities Showed pt how to fig 8 wrap her L knee wth her CONCETTA wrap. PT-OP-T Assessment and Plan Start: 04/27/19 16:07 Freq: Status: Active Protocol: Document 05/07/19 13:36 LRN (Rec: 05/07/19 14:19 LRN [id number]) Physical Therapy Assessment Assessment Summary Assessment Pt having less sharp pain onsets. Tolerating progression of ex's w/o complaints of pain, except with full knee flexion in supine. Lacks adherence to use of knee wrap. No PFP noted. Pt is not comfortable wrapping knee for edema yet. Physical Therapy Plan Frequency and Duration Frequency of Treatment 2x/Week Plan of Care Start Date 04/30/19 Plan of Care End Date 07/02/19 Next Visit Focus/Plan Next Note Type Treatment Note Next Visit Plan CKC warm up, f/b ROM and medial knee & hip AB's strengthening, as well as hip rotators. End with modalities for pain management as needed . Address soft tissue restrictions of the LB if needed.
--- NOTE | 2019-05-13 17:06 | PT.OTN ---
Current Diagnoses Pain in left knee (05/13/19) Physical Therapy Treatment Note PT-OP-A Visit Information Start: 04/27/19 16:07 Freq: Status: Active Protocol: Document 05/13/19 12:45 LRN (Rec: 05/13/19 13:31 LRN [id number]) Out-Patient Physical Therapy Visit Information Visit Information Visit Type Treatment Note Visit Start Time 12:45 Visit Stop Time 13:30 Total Visit Minutes 45 Visit Number 4 Number of FREEZER PERSON Visits 0 Evaluation Information Evaluation Date 04/30/19 Precautions Precautions Per pt history and intake form : Osteopenia, Bruises easily, Bradycardia, cervicalgia, chronic headache, meningioma- chronic, minor closed head injury 2018, history of torn rotator cuff. PT-OP-B Current Condition Start: 04/27/19 16:07 Freq: Status: Active Protocol: Document 04/30/19 12:48 LRN (Rec: 05/03/19 08:13 LRN [id number]) Current Condition History of Current Condition Onset Date 03/2019 Current Complaints L knee pain inferior to the patella medially where varicose vein is History of Current Condition Pt reports falling 08/2018 for reasons unknown. She has had occasional L medial and inferior to patella knee pain rated 3/10. She states she walks a lot. At her regular check up she had an X-ray taken and was told she has degneration all around the knee. 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 Developmental History Developmental History At home 12 yrs ago at age 61 she fell onto the L knee because her foot caught on a carpet causing her to fall with her head hitting a shredder machine. She got up and sat down for 1/2 hour and had difficulty getting up due to pain. She noted that her knee was quite swollen after sitting for that short period of time. She went to ER but X -rays showed no fractures, but a few days later had R shoulder pain and later found she had a torn rotator cuff. She states she healed a few weeks later. She Treatment Goals Patient/Caregiver Goals Pt goal is to strengthen the knees to decrease pain and to continue on her own with a home program. Prior Functional Status Baseline Function- ADL's Independent Baseline Function- Mobility Independent Baseline Function- Gait Gait with occasional L knee pain. Baseline Function- Recreation/Hobbies Walk dog without knee pain. Yoga and Sai 2x/week. Current Functional Impairments (Reported) Functional Limitations- ADL's L knee pain with walking. Functional Limitations- Recreation/ L knee pain with yoga & Sai. Hobbies Personal Factors Other Personal Factors That May Effect Bruises easily, pt has had a Therapy/Recovery history of falls recently (2 in last month). PT-OP-C Subjective Start: 04/27/19 16:07 Freq: Status: Active Protocol: Document 05/13/19 12:45 LRN (Rec: 05/13/19 13:31 LRN [id number]) OP-PT Subjective Patient Comments Patient Comments Twinge in the L knee now and then. Doing ex's and feeling a stretch in the knees, not pain. PT-OP-G Mobility & Gait Start: 04/27/19 16:07 Freq: Status: Active Protocol: Document 04/30/19 12:48 LRN (Rec: 05/03/19 12:43 LRN [id number]) Stair Climbing Evaluation Evaluation Level of Assist On Stairs Independent Devices Stair Climbing Assistive Devices None Technique/Endurance Stair Climbing Direction Ascend and Descend Stair Climbing Technique Step Over Step Number of Steps Climbed 4 PT-OP-H Neuro Start: 04/27/19 16:07 Freq: Status: Active Protocol: Document 04/30/19 12:48 LRN (Rec: 05/03/19 10:25 LRN [id number]) Sensation Evaluation Gross Sensation Gross Sensation WNL Comments Summary Comments Pt reports tingling on plantar surface of feet at nighttime Deep Tendon Reflex & Clonus Assessment Deep Tendon Reflex Bilateral Achilles Deep Tendon Reflex 2+ Normal Bilateral Patellar Deep Tendon Reflex 2+ Normal PT-OP-J Posture/Palpation/Skin Start: 04/27/19 16:07 Freq: Status: Active Protocol: Document 04/30/19 12:48 LRN (Rec: 05/03/19 10:25 LRN [id number]) Posture Evaluation Position Standing L-Spine Posture Increased Lordosis Shoulder Posture (L) Elevated Scapula Posture (R) Depressed Pelvis Posture Anteriorly Tilted Knee Posture (L) Genu Valgus,(R) Genu Valgus Ankle/Foot Posture (L) Calcaneal Eversion Foot Arch (L) Low Arch,(R) Low Arch Comments Posture Comments Valgus of knees bilaterally, pes cavus bilaterally. Palpation Assessment Location L knee Palpation Location Around patella Palpation Findings Tenderness PT-OP-K Range of Motion Start: 04/27/19 16:07 Freq: Status: Active Protocol: Document 04/30/19 12:48 LRN (Rec: 05/03/19 10:25 LRN [id number]) Knee Goniometric Range of Motion Knee Right Knee ROM WFL Yes Flexion Active (degrees) 142 Extension Active (degrees) 0 Left Knee ROM WFL No Flexion Active (degrees) 125 Knee ROM Limitations Comments L knee lacks 3 deg's active extension PT-OP-M Strength Start: 04/27/19 16:07 Freq: Status: Active Protocol: Document 04/30/19 12:48 LRN (Rec: 05/03/19 10:25 LRN [id number]) Hip Strength Hip Manual Muscle Testing Right Abduction 3+ Fair+ External Rotation 3+ Fair+ Internal Rotation 3 Fair Comments Strength is 5/5 except those listed above. Left Abduction 3 Fair External Rotation 3 Fair Internal Rotation 3 Fair Comments Strength is 5/5 except those listed above Knee Strength Knee Manual Muscle Testing Right Flexion (S2) 5 Normal Left Flexion (S2) 5 Normal Ankle/Foot Strength Ankle and Foot Manual Muscle Testing Right Reason Not Measured WFL Left Reason Not Measured WFL PT-OP-Q Treatments Start: 04/27/19 16:07 Freq: Status: Active Protocol: Document 05/13/19 12:45 LRN (Rec: 05/13/19 13:31 LRN [id number]) Cardio Equipment Bicycle (Upright) Duration (Minutes) 10 Resistance 3 Seat Position 3 Other 70 rpm Therapeutic Exercises Supine Exercises SLR Supine Exercise Name SLR: foot at 12 & 10 O'Clock Side left Resistance 2# Reps/Minutes 8x each Fig 4 stretch Supine Exercise Name Fig 4 stretch, f/b active stretch Side bilateral Reps/Minutes 60 stretch f/b active ER x 10 QS & Active knee flex review Supine Exercise Name Active knee flexion Side left Reps/Minutes 8x 10S hold Sidelying Exercises Hip AD Sidelying Exercise Name Hip AD Side bilateral Resistance 2# Reps/Minutes 10 Reverse Clamshell Sidelying Exercise Name Reverse Clamshell Side left Resistance 2# Reps/Minutes 10x 2 Clamshell Sidelying Exercise Name Clamshell Side left Resistance 2# Reps/Minutes 10x 3 Hip AB Sidelying Exercise Name Hip AB Side bilateral Resistance 2# Reps/Minutes 8x Standing Exercises Squat walk Standing Exercise Name Squat Walk and standing hip AB Resistance 0 & Lev1 T-Band Reps/Minutes 3' Step ups Standing Exercise Name 6 step ups for ECC strengthening Equipment Used 6 steps Reps/Minutes 4' Comments 15x each leg leading Self-Care/Home Management Treatment Education Patient Education Home Exercise Program Activities Self-Care/Home Management Activities Issued HEP of Fig 4 stretch of R LE. PT-OP-T Assessment and Plan Start: 04/27/19 16:07 Freq: Status: Active Protocol: Document 05/13/19 12:45 LRN (Rec: 05/13/19 13:31 LRN [id number]) Physical Therapy Assessment Goals Three Impairment Decreased L knee AROM (3-125, 0-142 right) Senior Care Goal (LTG) Improve L knee AROM with pt able to participate with yoga and Sai for her health and transfer without pain. LTG Duration 07/02/19 Two Impairment L knee pain rated 3/10 Short Term Goal (STG) Decrease pain to 2/10 STG Duration 06/01/19 (06/12/19: Improving , Twinges of Pain 2-3/10) Senior Care Goal (LTG) Decrease pain to 1/10 with pt able to walk dog without pain. LTG Duration 07/02/19 (05/13/19: GOAL MET) One Impairment Lacks self care HEP Senior Electrical Estimator Goal (LTG) Pt will be independent in a self care HEP. LTG Duration 07/02/19 (Progressing) Assessment Summary Assessment Pt able to walk dog without pain. Pain of is intermittent . No pain with step ups today . Pt is tender in medial R knee joint today. Physical Therapy Plan Frequency and Duration Frequency of Treatment 2x/Week Plan of Care Start Date 04/30/19 Plan of Care End Date 07/02/19 Next Visit Focus/Plan Next Note Type Treatment Note Next Visit Plan Check Goal #3. Remeasure L knee AROM. CKC warm up, f/b ROM and medial knee & hip AB's strengthening, as well as hip rotators. End with modalities for pain management as needed.
--- NOTE | 2019-05-21 13:34 | PT.OTN ---
Current Diagnoses Pain in left knee (05/21/19) Physical Therapy Treatment Note PT-OP-A Visit Information Start: 04/27/19 16:07 Freq: Status: Active Protocol: Document 05/21/19 12:48 LRN (Rec: 05/21/19 13:32 LRN [id number]) Out-Patient Physical Therapy Visit Information Visit Information Visit Type Treatment Note Visit Start Time 12:48 Visit Stop Time 13:32 Total Visit Minutes 44 Visit Number 5 Number of SPRAY PAINTER Visits 0 Evaluation Information Evaluation Date 04/30/19 Precautions Precautions Per pt history and intake form : Osteopenia, Bruises easily, Bradycardia, cervicalgia, chronic headache, meningioma- chronic, minor closed head injury 2018, history of torn rotator cuff. PT-OP-B Current Condition Start: 04/27/19 16:07 Freq: Status: Active Protocol: Document 04/30/19 12:48 LRN (Rec: 05/03/19 08:13 LRN [id number]) Current Condition History of Current Condition Onset Date 03/2019 Current Complaints L knee pain inferior to the patella medially where varicose vein is History of Current Condition Pt reports falling 08/2018 for reasons unknown. She has had occasional L medial and inferior to patella knee pain rated 3/10. She states she walks a lot. At her regular check up she had an X-ray taken and was told she has degneration all around the knee. 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 Developmental History Developmental History At home 12 yrs ago at age 61 she fell onto the L knee because her foot caught on a carpet causing her to fall with her head hitting a shredder machine. She got up and sat down for 1/2 hour and had difficulty getting up due to pain. She noted that her knee was quite swollen after sitting for that short period of time. She went to ER but X -rays showed no fractures, but a few days later had R shoulder pain and later found she had a torn rotator cuff. She states she healed a few weeks later. She Treatment Goals Patient/Caregiver Goals Pt goal is to strengthen the knees to decrease pain and to continue on her own with a home program. Prior Functional Status Baseline Function- ADL's Independent Baseline Function- Mobility Independent Baseline Function- Gait Gait with occasional L knee pain. Baseline Function- Recreation/Hobbies Walk dog without knee pain. Yoga and Sai 2x/week. Current Functional Impairments (Reported) Functional Limitations- ADL's L knee pain with walking. Functional Limitations- Recreation/ L knee pain with yoga & Sai. Hobbies Personal Factors Other Personal Factors That May Effect Bruises easily, pt has had a Therapy/Recovery history of falls recently (2 in last month). PT-OP-C Subjective Start: 04/27/19 16:07 Freq: Status: Active Protocol: Document 05/21/19 12:48 LRN (Rec: 05/21/19 13:32 LRN [id number]) OP-PT Subjective Patient Comments Patient Comments States her knee is good and she can bend her knee in standing without pain. Doing Sai without pain. Walks without pain. PT-OP-G Mobility & Gait Start: 04/27/19 16:07 Freq: Status: Active Protocol: Document 04/30/19 12:48 LRN (Rec: 05/03/19 12:43 LRN [id number]) Stair Climbing Evaluation Evaluation Level of Assist On Stairs Independent Devices Stair Climbing Assistive Devices None Technique/Endurance Stair Climbing Direction Ascend and Descend Stair Climbing Technique Step Over Step Number of Steps Climbed 4 PT-OP-H Neuro Start: 04/27/19 16:07 Freq: Status: Active Protocol: Document 04/30/19 12:48 LRN (Rec: 05/03/19 10:25 LRN [id number]) Sensation Evaluation Gross Sensation Gross Sensation WNL Comments Summary Comments Pt reports tingling on plantar surface of feet at nighttime Deep Tendon Reflex & Clonus Assessment Deep Tendon Reflex Bilateral Achilles Deep Tendon Reflex 2+ Normal Bilateral Patellar Deep Tendon Reflex 2+ Normal PT-OP-J Posture/Palpation/Skin Start: 04/27/19 16:07 Freq: Status: Active Protocol: Document 04/30/19 12:48 LRN (Rec: 05/03/19 10:25 LRN [id number]) Posture Evaluation Position Standing L-Spine Posture Increased Lordosis Shoulder Posture (L) Elevated Scapula Posture (R) Depressed Pelvis Posture Anteriorly Tilted Knee Posture (L) Genu Valgus,(R) Genu Valgus Ankle/Foot Posture (L) Calcaneal Eversion Foot Arch (L) Low Arch,(R) Low Arch Comments Posture Comments Valgus of knees bilaterally, pes cavus bilaterally. Palpation Assessment Location L knee Palpation Location Around patella Palpation Findings Tenderness PT-OP-K Range of Motion Start: 04/27/19 16:07 Freq: Status: Active Protocol: Document 05/21/19 12:48 LRN (Rec: 05/21/19 13:34 LRN [id number]) Knee Goniometric Range of Motion Knee Right Knee ROM WFL Yes Patient Position Supine Flexion Active (degrees) 136 Hyper-Extension Active 0 Left Knee ROM WFL Yes Patient Position Supine Flexion Active (degrees) 142 Hyper-Extension Active 0 PT-OP-M Strength Start: 04/27/19 16:07 Freq: Status: Active Protocol: Document 04/30/19 12:48 LRN (Rec: 05/03/19 10:25 LRN [id number]) Hip Strength Hip Manual Muscle Testing Right Abduction 3+ Fair+ External Rotation 3+ Fair+ Internal Rotation 3 Fair Comments Strength is 5/5 except those listed above. Left Abduction 3 Fair External Rotation 3 Fair Internal Rotation 3 Fair Comments Strength is 5/5 except those listed above Knee Strength Knee Manual Muscle Testing Right Flexion (S2) 5 Normal Left Flexion (S2) 5 Normal Ankle/Foot Strength Ankle and Foot Manual Muscle Testing Right Reason Not Measured WFL Left Reason Not Measured WFL PT-OP-Q Treatments Start: 04/27/19 16:07 Freq: Status: Active Protocol: Document 05/21/19 12:48 LRN (Rec: 05/21/19 13:32 LRN [id number]) Cardio Equipment Bicycle (Upright) Duration (Minutes) 10 Resistance 4 Seat Position 3 Other 70 rpm Therapeutic Exercises Supine Exercises SLR Supine Exercise Name SLR: foot at 12 & 10 O'Clock Side bilateral Resistance 2# Reps/Minutes 8x each right, 10x2 each left Fig 4 stretch Supine Exercise Name Fig 4 stretch, f/b active stretch Side bilateral Reps/Minutes 60 stretch f/b active ER x 10 Sidelying Exercises Hip AD Sidelying Exercise Name Hip AD Side bilateral Resistance 2# Reps/Minutes 10 x 2 Reverse Clamshell Sidelying Exercise Name Reverse Clamshell Side left Resistance 2# Reps/Minutes 10x 2 Clamshell Sidelying Exercise Name Clamshell Side left Resistance 2# Reps/Minutes 15x2 Hip AB Sidelying Exercise Name Hip AB Side bilateral Resistance 2# Reps/Minutes 8x Standing Exercises Squat walk Standing Exercise Name Squat Walk and standing hip AB Resistance Lev1 T-Band Reps/Minutes 3' Self-Care/Home Management Treatment Education Patient Education Home Exercise Program Activities Self-Care/Home Management Activities Reviewed HEP previously issued . Issued Lev 1 T-Band for home exercises. PT-OP-T Assessment and Plan Start: 04/27/19 16:07 Freq: Status: Active Protocol: Document 05/21/19 12:48 LRN (Rec: 05/21/19 13:32 LRN [id number]) Physical Therapy Assessment Goals Three Impairment Decreased L knee AROM (3-125, 0-142 right) Bureau Chief Goal (LTG) Improve L knee AROM with pt able to participate with yoga and Sai for her health and transfer without pain. (05/21/19: 0-142 deg's left, 0-136 deg's right) LTG Duration 07/02/19 (05/21/19: GOAL MET) Two Impairment L knee pain rated 3/10 Short Term Goal (STG) Decrease pain to 2/10 STG Duration 06/01/19 (05/21/19: GOAL MET , pain at 1/10) Longterm Goal (LTG) Decrease pain to 1/10 with pt able to walk dog without pain. LTG Duration 07/02/19 (05/13/19: GOAL MET) One Impairment Lacks self care HEP Longterm Goal (LTG) Pt will be independent in a self care HEP. LTG Duration 07/02/19 (05/21/19: GOAL MET ) Assessment Summary Assessment Pt is able to walk with knee pain of 1/10 and is back to doing yoga and sai without limiting pain. Physical Therapy Plan Discharge Physical Therapy Discharge Reasons Goals Met Discharge Comments Pt has mild pain at knee rated 1/10. She has returned to her prior level of function. Thank you for your referral.
== END 2019-05-24 12:48 ==
LOC: PHYS 12:45
PROVIDERS: PCP Family Medicine; Visit Provider Family Medicine
DX: M25.562 Pain in left knee (principal)
CPT/HCPCS: 97110; 97116; 97162; 97535

== ENCOUNTER 2019-06-29 20:36 | Inpatient (IN) | payer OTHER, MEDICARE, SELFPAY ==
--- NOTE | 2019-06-29 20:43 | ED_ITS ---
HPI - General Adult General Chief complaint: Abdominal Pain Stated complaint: lower abdominal pain Time Seen by Provider: 06/29/19 20:42 Source: patient Mode of arrival: Ambulatory Limitations: no limitations History of Present Illness HPI narrative: Patient is a 73-year-old female here for evaluation of lower abdominal pain. She states that has been going on for the past day and worsening as the day has been going on. No urinary symptoms. No vaginal symptoms. Did have a couple loose bowel movements this morning which did not change her symptoms at all. No recent travel. No recent antibiotic use. Over the past couple months she has had 2 prior episodes of the exact same symptoms that brought her in today however they were not as intense and did not last as long. No prior abdominal surgeries. Related Data Home Medications Medication Instructions Recorded Confirmed ASCORBIC ACID (#VITAMIN C) 500 mg PO QDAY #0 04/06/11 06/29/19 CA PANTOTHENATE/FOLIC ACID/VIT 1 tab PO QDAY #0 04/06/11 06/29/19 (MULTIVITAMIN) cholecalciferol (vitamin D3) 1,000 1,000 unit PO DAILY 01/19/18 06/29/19 unit capsule brimonidine-timolol [Combigan] 1 drp OPHTHALMIC (EYE) Q12H 09/06/18 06/29/19 atorvastatin 20 mg PO QPM 06/29/19 06/29/19 Previous Rx's Medication Instructions Recorded frovatriptan 2.5 mg tablet 2.5 mg PO PRN PRN #12 tab 04/15/19 trazodone 150 mg tablet 150 mg PO BEDTIME #90 tab 05/10/19 Allergies Allergy/AdvReac Type Severity Reaction Status Date / Time Penicillins Allergy Mild CHILDHOOD Verified 06/29/19 20:53 Review of Systems Constitutional Constitutional: Denies fever(s) Cardiovascular Cardiovascular: Denies chest pain and Denies dyspnea Respiratory Respiratory: Denies dyspnea Gastrointestinal Gastrointestinal: Reports abdominal pain, Reports diarrhea, Reports nausea and Denies vomiting Genitourinary Genitourinary: Denies dysuria and Denies vaginal discharge Musculoskeletal Musculoskeletal: Denies myalgias and Denies arthralgias Integumentary/Breasts Skin/Breast: Denies lesions and Denies rash Neurologic Neurologic: Denies behavioral changes Psychiatric Psychiatric: Denies behavioral changes Hematologic/Lymphatic Hematologic/Lymphatic: Denies easy bleeding and Denies easy bruising Allergic/Immunologic Allergic/Immunologic: Denies urticaria Patient History Medical History Abnormal Pap smear of cervix (Resolved 2001) Chronic headaches (Chronic 1996) 1 para 1 (Resolved) Hayfever (Chronic) History of eczema as a child (Resolved) Meningioma (Chronic) Menopause (Resolved ~1995) Myopia (Chronic 2010) Retinal degeneration (Chronic 2010) SVT (supraventricular tachycardia) (Chronic 2003) Social History Smoking Status: Never smoker Smoking Status: Never smoker alcohol intake frequency: 0-2 drinks per day Substance Use Type: does not use Exam Initial Vital Signs Initial Vital Signs: Vital Signs Temperature 97.8 F 06/29/19 20:53 Pulse Rate 68 06/29/19 20:53 Respiratory Rate 20 06/29/19 20:53 Blood Pressure 138/58 L 06/29/19 20:53 Pulse Oximetry 100 06/29/19 20:53 Const General: cooperative and comfortable Limitations: mental status not altered HENMT Head: normal to inspection and normocephalic Resp Effort & Inspection: normal respiratory effort Auscultation: clear to auscultation bilaterally Cardio Rate: regular rate Rhythm: regular rhythm GI Inspection: non-distended Palpation: soft, No firm and No tender (No tenderness to palpation lower abdomen) Back/Spine/Pelvis Back: No CVA tenderness Skin Lesions: no lesions Rashes: no rashes Neuro General: alert, awake and oriented x3 Cognition: normal cognition Speech: speech normal Extrem General: normal to inspection and capillary refill normal Psych Appearance: grossly normal and well kempt Course Orders Ordered: ED Orders 06/29/19 20:50 CT abdomen pelvis w con Stat 06/29/19 21:02 Complete Blood Count AUTO DIFF Stat Comprehensive Metabolic Panel Stat Lipase Stat Sodium Chloride (Normal Saline 0.9%) 1,000 mls @ 125 mls/hr IV CONT JASON Morphine Sulfate (Morphine) 2 mg IV Q4HR PRN PRN Reason: Pain, Mild (1-3) Ondansetron HCl (Zofran) 4 mg IV Q4HR PRN PRN Reason: Nausea And Vomiting Discontinued Medications Sodium Chloride (Normal Saline 0.9%) 1,000 mls @ 1,000 mls/hr IV BOLUS ONE Stop: 06/29/19 21:48 Last Infusion: 06/29/19 22:26 Dose: 0 mls/hr Documented by: Admin: 06/29/19 21:01 Dose: 1,000 mls/hr Documented by: ZURI Piperacillin/Tazobactam/Dextrose (Zosyn) 3.375 gm in 50 mls @ 100 mls/hr IV NOW ONE Stop: 06/29/19 23:22 Last Admin: 06/29/19 23:05 Dose: 100 mls/hr Documented by: AMAURY Morphine Sulfate (Morphine) 4 mg IV NOW ONE Stop: 06/29/19 20:50 Last Admin: 06/29/19 21:00 Dose: 4 mg Documented by: ZURI Morphine Sulfate (Morphine) 4 mg IV NOW ONE Stop: 06/29/19 22:29 Last Admin: 06/29/19 22:34 Dose: 4 mg Documented by: ZURI Ondansetron HCl (Zofran) 4 mg IV NOW ONE Stop: 06/29/19 20:50 Last Admin: 06/29/19 21:00 Dose: 4 mg Documented by: ZURI Vital Signs Vital signs: Vital Signs - 8 hr 06/29/19 20:53 06/29/19 21:10 06/29/19 22:39 Temperature 97.8 F Pulse Rate 68 81 66 Respiratory Rate 20 18 16 Blood Pressure 138/58 L Blood Pressure [Left Arm] 140/60 135/56 L Pulse Oximetry 100 100 97 Medical Decision Making Lab Data Lab results reviewed: Yes I reviewed the patient's lab results. Result diagrams: 06/29/19 21:02 06/29/19 21:02 Labs: Lab Results 06/29/19 06/29/19 06/29/19 Range/Units 21:02 21:02 21:02 WBC 16.2 H (4.5-11.0) X10^3/uL RBC 4.70 (4.0-5.2) X10^6/uL Hgb 15.0 (12.0-16.0) g/dL Hct 43.3 (36-46) % MCV 92.2 (80-100) fL MCH 32.0 (26-34) PG MCHC 34.7 (30-36) % RDW 12.5 (11.6-14.8) % Plt Count 277 (150-400) X10^3/uL Neut % (Auto) 87.5 H (50-75) % Lymph % (Auto) 6.7 L (25-40) % [place] % (Auto) 4.5 (3-14) % Eos % (Auto) 0.3 L (2-4) % Baso % (Auto) 1.0 (0-2) % Neut # (Auto) 84045 H (8180-9580) /uL Lymph # (Auto) 1100 (2897-7964) /uL [place] # (Auto) 700 (0-900) /uL Eos # (Auto) 100 (0-450) /uL Baso # (Auto) 200 H (0-100) /uL Sodium 134 L (137-145) mmol/L Potassium 4.1 (3.4-5.1) mmol/L Chloride 99 (98-107) mmol/L Carbon Dioxide 21 L (22-32) mmol/L BUN 21 H (7-17) mg/dL Creatinine 0.60 (0.52-1.04) mg/dL Estimated GFR > 60.0 (>60) mL/min BUN/Creatinine Ratio 35.0 H (6-22) Glucose 129 H (80-110) mg/dL Calcium 9.7 (8.4-10.2) mg/dL Total Bilirubin 0.8 (0.2-1.3) mg/dL AST 27 (14-36) IU/L ALT 23 (<35) IU/L Alkaline Phosphatase 70 (38-126) U/L Total Protein 7.3 (6.3-8.2) g/dL Albumin 4.5 (3.5-5.0) g/dL Globulin 2.8 (1.7-4.1) g/dL Albumin/Globulin Ratio 1.6 (1.0-2.8) Lipase 125 (23-300) U/L Urine Dip Bedside Urine Glucose Negative Bedside Urine Bilirubin - Negative Bedside Urine Ketone +++ 80 Urine Specific [place] 1.010 Bedside Urine Occult Blood +/- Bedside Urine pH 5.5 Bedside Urine Protein - Negative Bedside Urine Urobilinogen - Negative Bedside Urine Nitrite - Negative Bedside Urine Leukocytes - Negative Esterase Point of care testing: Urine Dip Bedside Urine Glucose Negative Bedside Urine Bilirubin - Negative Bedside Urine Ketone +++ 80 Urine Specific [place] 1.010 Bedside Urine Occult Blood +/- Bedside Urine pH 5.5 Bedside Urine Protein - Negative Bedside Urine Urobilinogen - Negative Bedside Urine Nitrite - Negative Bedside Urine Leukocytes - Negative Esterase Imaging Data CT scan - abdomen/pelvis: Radiologist's Impression: [address] [address] [address] Scan Report Signed Patient: Blessing Islas [facility]#: [id number] : 7Acct:[id number] Age/Sex: 73 / FDate of Service: 06/29/19 Loc: ED Accession Number: [id number] Procedure: CT abdomen pelvis w con Ordering Provider: Steven Lucas D.O. PROCEDURE: CT ABDOMEN PELVIS W CON INDICATIONS: Lower abdomen pain TECHNIQUE: After the administration of intravenous contrast, 5 mm thick sections acquired from the diaphragm to the symphysis. 5 mm coronal and sagittal reformats were acquired. For radiation dose reduction, the following was used: automated exposure control, adjustment of mA and/or kV according to patient size. COMPARISON: [facility], CT, THORAX WITHOUT CONTRAST, 05/04/2016, 14:39. [facility], CT, ABDOMEN/PELVIS WITH CONTRAST, 02/25/2014, 11:13. FINDINGS: Image quality: Excellent. ABDOMEN: Lung bases: Lung bases are clear. Heart size is normal. Solid organs: Liver is normal in size and enhancement. Low density nodules in liver are most likely hepatic cysts. But some lesions are too small to further characterize. Gallbladder is mildly distended. No radiopaque gallstones. Biliary system is mildly dilated. Pancreas enhances normally. Spleen is normal in size and enhancement. No adrenal nodules. Kidneys demonstrate normal size and enhancement, without hydronephrosis. Peritoneum and bowel: There is a tubular structure in the right lower quadrant and just below and posterior to the cecum, measuring 13 mm in diameter. This is most likely the enlarged appendix. 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 The CT findings are highly suspicious for acute appendicitis. The gastric antrum may be thickened. No evidence for gastric outlet obstruction. Bowel loops demonstrate normal caliber. There are is a moderate amount stool in colon. There are may be colonic diverticula in sigmoid colon. No definitive findings to suggest acute diverticulitis. No free fluid or air. Nodes and vessels: No retroperitoneal or mesenteric adenopathy by size criteria. Aorta and inferior vena cava are normal in size. Miscellaneous: No ventral hernias. PELVIS: Genitourinary: Bladder wall thickness is normal. Uterus is unremarkable. Ovaries are not identified. Miscellaneous: No inguinal hernias or adenopathy. Bones: No suspicious bony lesions. No chronic L2 vertebral body compression fracture. Degenerative changes in lumbar spine. IMPRESSION: 1. CT findings are highly suspicious for acute appendicitis. 2. Possible gastric antral thickening. Differential diagnoses include peptic ulcer disease and artifact from peristalsis. 3. Diverticulosis without acute diverticulitis. 4. A moderate amount of stool in colon. 5. Numerous low density nodules in liver, most likely hepatic cysts. Some lesions are, however, too small to further characterize. 6. There is mild intrahepatic and extrahepatic biliary dilation. Please correlate with serum bilirubin for biliary obstruction. The result was discussed with Dr. Lucas in ER. Dictated by: Karlo Hankins M.D. on 06/29/2019 at 22:08 Approved by: Karlo Hankins M.D. on 06/29/2019 at 22:[address] [facility] Narrative Medical decision making narrative: Patient with bilateral lower abdominal pain upon arrival. Afebrile. Leukocytosis with a left shift. CT scan read concerning for acute appendicitis. Upon further evaluation after small on pain medication patient states that her pain is very much now localized to the right lower quadrant. This does fit the CT scan findings. I discussed this with the patient and her . Patient states that she has a allergy to penicillin however she states that allergy was nausea and vomiting after taking an oral dose of penicillin almost 40 years ago. She states that she thinks that she has had IV penicillin in the past. I did discuss with her that our preferred antibiotic is a penicillin derivative. After the risks and benefits discussion patient did state that she was okay with attempting an IV dose of Zosyn. After observing here in the emergency department she seemed to have no allergic reaction to this. I did discuss the case with Dr. Campos with general surgery who requested we admit the patient under his service. He will come and evaluate the patient in the morning and to discuss potential surgical intervention. I discussed this with the patient. She expressed understanding and agreement. Discharge Plan Departure Patient Disposition: Home Clinical Impression: Acute appendicitis Qualifiers: Acute appendicitis type: with localized peritonitis Appendicitis gangrene presence: without gangrene Appendicitis perforation presence: without perforation Appendicitis abscess presence: without abscess Qualified Code(s): K35.30 - Acute appendicitis with localized peritonitis, without perforation or gangrene Admit Date/Time: 06/29/19 23:01
--- NOTE | 2019-06-29 20:50 | DI.CT.S_ITS ---
PROCEDURE: CT ABDOMEN PELVIS W CON INDICATIONS: Lower abdomen pain TECHNIQUE: After the administration of intravenous contrast, 5 mm thick sections acquired from the diaphragm to the symphysis. 5 mm coronal and sagittal reformats were acquired. For radiation dose reduction, the following was used: automated exposure control, adjustment of mA and/or kV according to patient size. COMPARISON: [facility], CT, THORAX WITHOUT CONTRAST, 05/04/2016, 14:39. [facility], CT, ABDOMEN/PELVIS WITH CONTRAST, 02/25/2014, 11:13. FINDINGS: Image quality: Excellent. ABDOMEN: Lung bases: Lung bases are clear. Heart size is normal. Solid organs: Liver is normal in size and enhancement. Low density nodules in liver are most likely hepatic cysts. But some lesions are too small to further characterize. Gallbladder is mildly distended. No radiopaque gallstones. Biliary system is mildly dilated. Pancreas enhances normally. Spleen is normal in size and enhancement. No adrenal nodules. Kidneys demonstrate normal size and enhancement, without hydronephrosis. Peritoneum and bowel: There is a tubular structure in the right lower quadrant and just below and posterior to the cecum, measuring 13 mm in diameter. This is most likely the enlarged appendix. 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 The CT findings are highly suspicious for acute appendicitis. The gastric antrum may be thickened. No evidence for gastric outlet obstruction. Bowel loops demonstrate normal caliber. There are is a moderate amount stool in colon. There are may be colonic diverticula in sigmoid colon. No definitive findings to suggest acute diverticulitis. No free fluid or air. Nodes and vessels: No retroperitoneal or mesenteric adenopathy by size criteria. Aorta and inferior vena cava are normal in size. Miscellaneous: No ventral hernias. PELVIS: Genitourinary: Bladder wall thickness is normal. Uterus is unremarkable. Ovaries are not identified. Miscellaneous: No inguinal hernias or adenopathy. Bones: No suspicious bony lesions. No chronic L2 vertebral body compression fracture. Degenerative changes in lumbar spine. IMPRESSION: 1. CT findings are highly suspicious for acute appendicitis. 2. Possible gastric antral thickening. Differential diagnoses include peptic ulcer disease and artifact from peristalsis. 3. Diverticulosis without acute diverticulitis. 4. A moderate amount of stool in colon. 5. Numerous low density nodules in liver, most likely hepatic cysts. Some lesions are, however, too small to further characterize. 6. There is mild intrahepatic and extrahepatic biliary dilation. Please correlate with serum bilirubin for biliary obstruction. The result was discussed with Dr. Lucas in ER. Dictated by: Karlo Hankins M.D. on 06/29/2019 at 22:08 Approved by: Karlo Hankins M.D. on 06/29/2019 at 22:33
[2019-06-29 20:53] VITALS: BP 138/58; PULSE 68; RESP 20; TEMP 36.6; O2SAT 100; BMI 19.3
[2019-06-29] MEDS: ONDANSETRON 4 MG/2 ML INJ IV (21:00)
[2019-06-29] MEDS: MORPHINE 4 MG/ML INJ IV ×2 (21:00→22:34)
[2019-06-29] MEDS: SODIUM CHLORIDE 0.9% 1,000 ML 1000 ML IV (21:01)
[2019-06-29 21:10] VITALS: BP 140/60; PULSE 81; RESP 18; O2SAT 100
[2019-06-29 21:17] LABS: Add Manual Diff / Slide Review NO; Basophils Absolute Auto 200 /uL (0-100); Eosinophils Absolute Auto 100 /uL (0-450); Eosinophils Percent Auto 0.3 % (2-4); Hematocrit 43.3 % (36-46); Lymphocytes Absolute Auto 1100 /uL (1100-4500); Lymphocytes Percent Auto 6.7 % (25-40); Mean Corpuscular HGB Conc 34.7 % (30-36); Mean Corpuscular Volume 92.2 fL (80-100); Monocytes Absolute Auto 700 /uL (0-900); Monocytes Percent Auto 4.5 % (3-14); Neutrophils Absolute Auto 14100 /uL (1500-7000); Neutrophils Percent Auto 87.5 % (50-75); Platelet Count 277 X10^3/uL (150-400); Red Cell Distribution Width 12.5 % (11.6-14.8); White Blood Cell Count 16.2 X10^3/uL (4.5-11.0)
[2019-06-29 21:25] LABS: Alanine Aminotransferase 23 IU/L (<35); Albumin 4.5 g/dL (3.5-5.0); Albumin Globulin Ratio 1.6 (1.0-2.8); Alkaline Phosphatase 70 U/L (38-126); Aspartate Aminotransferase 27 IU/L (14-36); Bilirubin Total 0.8 mg/dL (0.2-1.3); Blood Urea Nitrogen 21 mg/dL (7-17); Calcium 9.7 mg/dL (8.4-10.2); Carbon Dioxide 21 mmol/L (22-32); Chloride 99 mmol/L (98-107); Estimated Glomerular Filt Rate > 60.0 mL/min (>60); Globulin 2.8 g/dL (1.7-4.1); Glucose 129 mg/dL (80-110); HEMOLYSIS < 15 (0-50); Lipase 125 U/L (23-300); Potassium 4.1 mmol/L (3.4-5.1); Sodium 134 mmol/L (137-145); Total Protein 7.3 g/dL (6.3-8.2)
[2019-06-29 22:39] VITALS: BP 135/56; PULSE 66; RESP 16; O2SAT 97
[2019-06-29] MEDS: PIPERACILLIN-TAZO 3.375 GM/50 ML FROZ.PIGGY IV (23:05)
[2019-06-30] VITALS (20 sets, daily range): BP systolic 99–159; BP diastolic 46–72; PULSE 50–96; RESP 15–18; TEMP 36.3–37.7; O2SAT 94–100; BMI 19.2
--- NOTE | 2019-06-30 | PATH_ITS ---
[facility] Accession Number: [id number] . 01 Material submitted: . appendix - APPENDIX . 01 Clinical history: . LOWER ABDOMINAL PAIN . 02 Diagnosis: Appendix, Appendectomy: Acute appendicitis with serositis. No evidence of neoplasm. MRV 07/03/2019 1220 Local . 02 Electronically signed: . Antonio Mcnally MD, PhD, Pathologist NPI- [id number] . 01 Gross description: . Received in formalin, labeled appendix, is an appendix (length-9.6 cm, diameter-1.2 cm) with edouard-akhtar exudate-covered serosa and attached mesoappendix (up to 2.2 cm in depth). The resection margin is received stapled. The lumen contains brown solid-soft material. The wall is up to 0.3 cm. No nodules, masses or lesions are identified. The resection margin is inked blue. Section code: (A1) resection margin en face and three sales representative publications serial sections; (A2) one-half of the bivalved tip. ([id number]) /MRV 07/02/2019 1214 Local . 02 Pathologist provided ICD-10: K35.80 . 02 CPT . 585830 Performed at: 01 [facility] [address], [place], [place] [id number] MD Rafael Rivers MD Phone: [phone] Performed at: 02 [facility] [place] [address] [place], [place] [id number] MD Saba Snell MD Phone: [phone]
[2019-06-30] MEDS: SODIUM CHLORIDE 0.9% 1,000 ML 125 ML IV (00:31)
[2019-06-30] MEDS: ONDANSETRON 4 MG/2 ML INJ IV ×4 (00:54→21:21)
[2019-06-30] MEDS: MORPHINE 2 MG/ML INJ IV ×2 (01:01→05:06)
--- NOTE | 2019-06-30 04:15 | PC.ADMIT ---
0010, Safe hand off from ED, Jessie FINLEY. Patient arrived on unit via wheelchair and ambulated to bedside. VSS, lung sounds clear bilaterally, pt experiencing lower abdominal pain 5-6/10. Medicated w/ 2mg Morphine Q4. Patient oriented to room, call light and safety instructions given. Bed is low and locked, call light within reach. [email or web address] [place] Admission Note: The patient,Blessing Islas,73 y/o, was given written information regarding hospital policies, unit procedures and contact persons. Patient's smoking status: Never smoker. Vital Signs - 8 hr 06/29/19 20:53 06/29/19 21:10 06/29/19 22:39 Temperature 97.8 F Pulse Rate 68 81 66 Respiratory Rate 20 18 16 Blood Pressure 138/58 L Blood Pressure [Left Arm] 140/60 135/56 L Pulse Oximetry 100 100 97 06/30/19 00:00 06/30/19 00:10 Temperature 99.9 F H Pulse Rate 84 91 H Respiratory Rate 16 16 Blood Pressure 143/60 H Blood Pressure [Left Arm] Pulse Oximetry 96 95
[2019-06-30] MEDS: SODIUM CHLORIDE 0.9% FLUSH 10 ML IV (05:06)
--- NOTE | 2019-06-30 08:38 | PC.NURSE ---
0835 Pt gone to OR via bed, spouse at bedside.
--- NOTE | 2019-06-30 08:42 | PM.HP.1 ---
History of Present Illness History of Present Illness Date Patient Seen: 06/30/19 Time Patient Seen: 08:42 Chief complaint: lower abdominal pain Narrative: 73-year-old very pleasant lady with abdominal pain for the last 12 hours or so. Began in the upper abdomen is now centered entirely in the right lower quadrant. She came to the emergency department here has an elevated white count and a CT scan which confirms uncomplicated acute appendicitis. She has had 2 episodes similar to this in the past but they subsided and cleared on their own and actually involved bilateral lower abdominal pain. Patient has received 1 dose of Zosyn which we were repeat and has been NPO. She actually vomited once yesterday. Patient History Medical History Abnormal Pap smear of cervix (Resolved 2001) Chronic headaches (Chronic 1996) 1 para 1 (Resolved) Hayfever (Chronic) History of eczema as a child (Resolved) Meningioma (Chronic) Menopause (Resolved ~1995) Myopia (Chronic 2010) Retinal degeneration (Chronic 2010) SVT (supraventricular tachycardia) (Chronic 2003) Surgical History Severe nausea following anesthesia (Resolved) Status post colonoscopy (Resolved 2013) Status post tubal ligation (Resolved 1994) Family & Social History Family History Father Polycystic kidney Crohn's disease Grandfather Cancer Mother Diabetes mellitus, type 2 Dementia Pneumonia Grandmother No problems noted. Grandfather Lung cancer Grandmother Dementia Social History: household members spouse Prior Living Arrangements House Safety & Behavioral: Feels Safe in Current Yes Environment Been Physically Hurt or No Threatened By a Person Suicidal Ideation Description None Suicide Plan Description No Plan Tobacco & Substance use: Smoking Status Never smoker alcohol intake frequency 0-2 drinks per day Substance Use Type does not use Meds Home Medications and Allergies Home Medications Medication Instructions Recorded Confirmed Type ASCORBIC ACID (#VITAMIN C) 500 mg PO QDAY #0 04/06/11 06/29/19 History CA PANTOTHENATE/FOLIC ACID/VIT 1 tab PO QDAY #0 04/06/11 06/29/19 History (MULTIVITAMIN) cholecalciferol (vitamin D3) 1,000 1,000 unit PO DAILY 01/19/18 06/29/19 History unit capsule brimonidine-timolol [Combigan] 1 drp OPHTHALMIC (EYE) Q12H 09/06/18 06/29/19 History frovatriptan 2.5 mg tablet 2.5 mg PO PRN PRN #12 tab 04/15/19 06/29/19 Rx trazodone 150 mg tablet 150 mg PO BEDTIME #90 tab 05/10/19 06/29/19 Rx atorvastatin 20 mg PO QPM 06/29/19 06/29/19 History Allergies Allergy/AdvReac Type Severity Reaction Status Date / Time Penicillins Allergy Mild CHILDHOOD Verified 06/30/19 07:30 Review of Systems Review of Systems ROS Unobtainable: All systems reviewed & are unremarkable except as noted in HPI and below Exam Vital Signs (past 8 hours): - 06/30/19 04:25 Temperature 99.1 F Pulse Rate 83 Respiratory Rate 16 Blood Pressure 133/57 L Pulse Oximetry 97 Oxygen Delivery Method Room Air Oxygen Flow Rate 0 Narrative Exam Narrative: Temperature is 99?. She is complaining of right lower quadrant abdominal pain. Ears nose and throat are unremarkable Lungs clear with no rales or wheezes Heart regular rhythm no murmur Abdomen exquisitely tender in right lower quadrant with early rebound tenderness no masses are palpated. Pelvic and rectal are deferred Objective Labs Result Diagrams: 06/29/19 21:02 06/29/19 21:02 Labs: Laboratory Results - last 24 hr 06/29/19 06/29/19 06/29/19 21:02 21:02 21:02 WBC 16.2 H RBC 4.70 Hgb 15.0 Hct 43.3 MCV 92.2 MCH 32.0 MCHC 34.7 RDW 12.5 Plt Count 277 Neut % (Auto) 87.5 H Lymph % (Auto) 6.7 L [place] % (Auto) 4.5 Eos % (Auto) 0.3 L Baso % (Auto) 1.0 Neut # (Auto) 85843 H Lymph # (Auto) 1100 [place] # (Auto) 700 Eos # (Auto) 100 Baso # (Auto) 200 H Sodium 134 L Potassium 4.1 Chloride 99 Carbon Dioxide 21 L BUN 21 H Creatinine 0.60 Estimated GFR > 60.0 BUN/Creatinine Ratio 35.0 H Glucose 129 H Calcium 9.7 Total Bilirubin 0.8 AST 27 ALT 23 Alkaline Phosphatase 70 Total Protein 7.3 Albumin 4.5 Globulin 2.8 Albumin/Globulin Ratio 1.6 Lipase 125 Assessment & Plan Assessment & Plan narrative: Patient with classic history for acute appendicitis with confirmation by CT scanning. Plan is open appendectomy. The patient and her understand and agree with the plan and have no unanswered questions. Quality VTE Deep Vein Thrombosis/Pulmonary Embolism Present on Admission: No
[2019-06-30] MEDS: PIPERACILLIN-TAZO 3.375 GM/50 ML FROZ.PIGGY IV (08:50)
[2019-06-30] MEDS: BUPIVACAINE 0.5% W/ EPI (PF) 30 ML VIAL INJ (09:22)
--- NOTE | 2019-06-30 09:24 | SUR.OPER ---
Supine on padded OR bed, head on pillow, arms secured on padded arm boards at <90 degrees abduction, legs uncrossed, safety belt at thigh, tape over blanket over lower legs.
--- NOTE | 2019-06-30 09:58 | PM.OP.1 ---
Operative Date/Time/Diagnoses Date of procedure: 06/30/19 Time of procedure: 09:58 Pre-op diagnosis: Acute uncomplicated appendicitis Post-op diagnosis: same Procedure & Clinicians Procedure: Appendectomy Same procedure as scheduled: Yes Surgeon: Raghavendra Campos Click Yes if Unassisted: Yes Anesthesia Type: General Operative Notes Findings: Acute uncomplicated appendicitis Closure Type: primary Specimen(s): other (Appendix and peritoneal cultures) Estimated Blood Loss (mL): 50 Blood products transfused: none Procedure in detail: The patient was properly identified during surgical pause. She was prepped and draped in a sterile fashion exposure of the lower abdomen. She was under general endotracheal anesthesia. A standard Mason-Fuad incision was made over McBurney's point. The oblique muscles were split and agreed iron fashion after the upon neurosis of the external oblique was incised in the direction of its fibers. Peritoneum was elevated in entered so as to avoid injury to the underlying structures. The sigmoid colon was actually in the right lower quadrant and was filled with hard stool. After this was moved left word I was able to identify the cecum which was rotated into the wound. The appendix was then elevated it was acutely inflamed coated with fibrin but not ruptured. Pericecal fluid was turbid and was cultured for aerobes and anaerobes. The appendix was removed by dividing the mesoappendix between clamps the vessels were ligated with 2 0 Vicryl. The base of the appendix was closed with a TA 30? stapler. And the appendix this removed. I reinforced the staple line with a running 3 0 Vicryl. The cecum was returned to its anatomic position was no bleeding no leakage from the appendectomy site. I irrigated the pelvis with a L of sterile saline aspirated dry there was no purulence or bleeding. Peritoneum was closed with a running 2 0 Vicryl. Oblique fascia closed with 1. PDS. The subcu irrigated. The skin is closed with telly sterile dressing applied. Procedures very well tolerated. Complications: none Post-operative Condition: stable Disposition: PACU
[2019-06-30] MEDS: KETOROLAC 30 MG/ML VIAL IV (10:24)
[2019-06-30] MEDS: OXYCODONE IR 5 MG TABLET PO (10:43)
[2019-06-30] MEDS: DEXTROSE 5%-0.45% NS 1,000 ML 75 ML IV (11:10)
--- NOTE | 2019-06-30 11:15 | SUR.PHASEI ---
PACU Phase 1 note: Patient arrived in PACU at 0959. Drowsy but easily arousable. VSS, O2 Sat WNL on RA. no complaints of pain. Dressing to RLQ clean dry and intact. Denies any nausea. IV patent. Received handoff report from Dr. Ulrich and Laurie Pang RN. Stable for transfer to room 223 at 1049. VSS on arrival. handoff report given to Ruby Mullins RN.
--- NOTE | 2019-06-30 11:54 | PC.NURSE ---
1050 Pt returned to room 223 via bed, post op appy. Pt is awake, alert, dressing to lower R abd inc site is clean, sml amt s/s sheryl noted & outlined. Pt IVF started, Pt on r/a, sats 97%. applied SCDs. Pt denies any pain at this time.
--- NOTE | 2019-06-30 12:52 | CM.DANOTE ---
DCP Breif assessment: EMR Reviewed: Patient is a 73 yr old female who underwent an open appendectomy preformed by Dr. Campos. PCP is Dr. Mayorga. CM/RN met with patient and patients at the bedside and explained CM/RN role patient was alert but was sleepy and struggling with nausea form medications. CM/RN spoke with the patients briefly and plan to D/c home. CM department will follow up with patient when she is more alert and feeling better to finish D/C planning. PT evaluation pending. I [place] (not medicare) until the end of the month and patient also has regular medicare. Plan: Patient would like to D/C home with family when medically stable. D/C planning assessment not finished due to patients nausea. CM department will follow up to determine if patient has any D/C planning needs. Nini Hess RN Discharge Planning/Care Management Advanced directive, confirm from FAMILY Start: 06/30/19 00:31 Freq: Q24H Status: Active Protocol: Document 06/30/19 09:00 ROSA MARIA (Rec: 06/30/19 11:42 ROSA MARIA [id number]) Advance Directive, confirm on record Time 11:30 Person contacted the Pt. Copy received No CM Discharge Assessment Start: 06/30/19 12:50 Freq: Status: Active Protocol: Document 06/30/19 12:50 HS (Rec: 06/30/19 12:51 HS [id number]) Discharge Planning Assessment Assigned Payroll Bookkeeper Nini Hess RN DPOA/Assigned Designee Name Won Islas () Contact Information [phone] Advance Directives? Yes History Provided By Patient Has Patient been admitted in last 30 No days? Prior Living Arrangements House Household Members spouse Type of transporation used prior to Drives own vehicle admit Independent with ADL's Yes Is patient alert and oriented? No: Patient was very nauseated when CM/RN attempted to meet, on medicaiton Caregiver for Another No Discharge Plan Home Referrals Initiated None needed Whiteboard Updated in Patient Room with Yes name and ext. # of Payroll Bookkeeper Review Status In Process Next Review Type Continued Stay Review
--- NOTE | 2019-06-30 13:45 | PC.NURSE ---
1228 Pt med w/IV zofran for c/o nausea. no emesis. 1315 Pt had clear liq emesis of approx 100ml. 1325 Pt resting quietly in bed, eyes closed, relaxed face, even resp noted, spouse at bedside.
--- NOTE | 2019-06-30 18:34 | PC.NURSE ---
Addendum entered by Saran Gallego R.N. 06/30/19 20:57: Dr. Bucio called back regarding patients home med Frova for migraines. Explained to Dr. Campos that per hospital policy, Home meds are to be sent to pharm for verification and then dosed out appropriately. The meds are then sent back to nurse. However, pharmacy had left for evening. Dr. Campos ordered for patient to still be able to have home medication despite policy. Home medication Fravo was given at for migraine prevention. Communication order was changed from earlier communication where he stated to give pain meds in place in case of a migraine. Original Note: Call placed to Dr. Bucio to resume patients home medications. Patient has migraine medication that is a preventative med. This medication is not supplied by the hospital and is not a option to order unless ordered as Non-Formulary. Call placed to provider again, and he strictly stated Give patient ordered pain medication in place of migraine medication if migraine occurs.
[2019-06-30] MEDS: TRAZODONE 50 MG TABLET 150 MG PO (20:55)
[2019-06-30] MEDS: ATORVASTATIN 20 MG TABLET PO (20:55)
[2019-06-30] MEDS: BRIMONIDINE/TIMOLOL 0.2%/0.5% OPHTH 5 ML 1 DROPS EYE-BOTH (20:55)
[2019-07-01] MEDS: DEXTROSE 5%-0.45% NS 1,000 ML 75 ML IV (00:26)
[2019-07-01 03:18] VITALS: BP 134/75; PULSE 58; RESP 16; TEMP 36.2; O2SAT 97
[2019-07-01 08:00] VITALS: BP 134/55; PULSE 56; RESP 16; TEMP 37.1; O2SAT 100
[2019-07-01] MEDS: ACETAMINOPHEN 325 MG TABLET 650 MG PO (08:40)
[2019-07-01] MEDS: BRIMONIDINE/TIMOLOL 0.2%/0.5% OPHTH 5 ML 1 DROPS EYE-BOTH (08:40)
--- NOTE | 2019-07-01 09:44 | PC.NURSE ---
AM NOTE - alert, reading this am, thiago full liq diet, states nausea resolved yesterday evening, +bt, + flatus, rlq dsgt
--- NOTE | 2019-07-01 09:46 | PC.NURSE ---
Addendum entered by Jackelin Jones R.N. 07/01/19 14:08: DC -Dr. Burnette in and pt will dc home, MD removed outer dsg, stapled incision intact, no redness, replaced with telfa and opsite over, when spouse arrived, iv removed, reviewed dc instructions with pt and spouse, script provided, belongings gathered, including including clothing, returned medication bottle to pt, empty in drawer, verified with Cedric in pharmacy, no meds kept there, pt has her own eye drops, glasses, clothing, book, tsf to and senior pl sql developer escorted to family car. Original Note: AM NOTE - pt is alert, reading this am, thiago full liq diet, states nausea resolved yesterday evening, + bt, + flatus, abd soft, rlq dsg di w/previously marked shadow drainage, no leakage, discussed pain mgt, states hx n/v previously when took norco, pain 2 on scale 0/10, given 650mg po tylenol now.
[2019-07-01 10:44] VITALS: O2SAT 95
[2019-07-01 12:09] VITALS: BP 110/51; PULSE 47; RESP 16; TEMP 37.1; O2SAT 98
--- NOTE | 2019-07-01 14:21 | PM.DS.1 ---
History of Present Illness History of Present Illness Chief complaint: lower abdominal pain Discharge Providers Provider Date of admission: 06/29/19 23:01 Discharge Date: 07/01/19 Primary care physician: Kym Mayorga DO Consults: 06/29/19 23:08 Consult to General Surgery Routine Comment: Consulting Provider: Raghavendra Campos Reason for consultation: Admission Has provider been notified: Yes 06/30/19 00:31 Consult to Dietitian, Adult Routine Comment: Reason For Exam: Reflex from assessment Discharge provider: Chetan Burnette MD Summary Hospital Course Discharge Diagnosis: Acute appendicitis Hospital Course: Patient presented with acute appendicitis. She underwent an open appendectomy by Dr. Bucio 06/30/2019. Acute non perforated appendicitis was observed. The operation was unremarkable. Her postoperative observation was uneventful. Status at Discharge Cognitive/behavioral status at discharge: oriented Overall status at discharge: patient is back to baseline Time Spent with Patient Time spent: Greater than 30 minutes Exam Vital Signs (past 8 hours): - 07/01/19 08:00 07/01/19 10:44 07/01/19 12:09 Temperature 98.7 F 98.8 F Pulse Rate 56 L 47 L Respiratory Rate 16 16 Blood Pressure 134/55 L 110/51 L Pulse Oximetry 100 95 98 Oxygen Delivery Method Room Air Oxygen Flow Rate 0 Narrative Exam Narrative: General adult female alert oriented no acute distress Chest nonlabored respiration Abdomen soft right lower quadrant incision clean dry intact of appropriately tender to palpation Objective Labs Result Diagrams: 06/29/19 21:02 06/29/19 21:02 Discharge Plan Discharge Plan Patient Disposition: Home Discharge orders & Medications Prescriptions: New tramadol 50 mg tablet 50 mg PO Q6H PRN (Reason: pain) Qty: 30 RF: 0 Continued ASCORBIC ACID (#VITAMIN C) 500 mg PO QDAY Qty: 0 RF: 0 CA PANTOTHENATE/FOLIC ACID/VIT (MULTIVITAMIN) 1 tab PO QDAY Qty: 0 RF: 0 frovatriptan [Frova] 2.5 mg tablet 2.5 mg PO PRN PRN (Reason: Migraine Headache) Qty: 12 RF: 5 trazodone 150 mg tablet 150 mg PO BEDTIME Qty: 90 RF: 1 cholecalciferol (vitamin D3) 1,000 unit capsule 1,000 unit PO DAILY RF: 0 atorvastatin 20 mg tablet 20 mg PO QPM RF: 0 Combigan 0.2-0.5 % Drops 1 drp ophthalmic (eye) Q12H RF: 0 Follow up/Referrals: Chetan Burnette MD [Physician] - (Please call to schedule your appointment to be seen next week.) Kym Mayorga DO [Primary Care Provider] - Diet/Activity/Treatments Diet: Diet as Tolerated Activity: No lifting >20 lbs x 4 weeks. Walking only for exercise for 4 weeks[address] while taking narcotics. Skin/Wound/Dressing Care Report to your healthcare provider any signs of infection, such as:: chills, fever, increased pain, unusual drainage and unusual redness Visit Report/Discharge Packet Instructions: DI for an Appendectomy, [facility]: Wound Care Discharge Data Primary Care Provider: Kym Mayorga Attending Provider: Raghavendra Campos Admit Date/Time: 06/29/19 23:01 Discharges patient from system. Discharge Date/Time: 07/01/19 14:16 Quality VTE Deep Vein Thrombosis/Pulmonary Embolism Present on Admission: No
== END 2019-07-01 14:16 | disposition home or self-care (01) | DRG 343 ==
LOC: ED 22:52 → AC 23:02
PROVIDERS: Admitting Provider Surgery; Emergency Provider Emergency Medicine; PCP Family Medicine; Visit Provider Surgery
PROC: 0DTJ0ZZ Resection of Appendix, Open Approach (ICD-10-PCS; CPT 44950; principal; 2019-06-30 08:15)
DX: K35.80 Unspecified acute appendicitis (principal)
CPT/HCPCS: 36415; 44950; 74177; 80053; 81003; 83690; 85025; 87070; 87075; 87205; 96361; 96365; 96375; 96376; 99222; 99284; 99285; G0378; J1885; J2270; J2405; J2543; J2704; J3010; Q9967

== ENCOUNTER → 2019-07-17 15:54 | Outpatient (CLI) | payer OTHER, MEDICARE, SELFPAY ==
[2019-06-30 00:12] VITALS: BMI 19.2
[2019-07-17 16:42] LABS: Add Manual Diff / Slide Review NO; Basophils Absolute Auto 100 /uL (0-100); Basophils Percent Auto 0.6 % (0-2); Eosinophils Absolute Auto 100 /uL (0-450); Eosinophils Percent Auto 0.7 % (2-4); Hematocrit 41.6 % (36-46); Hemoglobin 14.1 g/dL (12.0-16.0); Lymphocytes Absolute Auto 1200 /uL (1100-4500); Lymphocytes Percent Auto 12.2 % (25-40); Mean Corpuscular HGB Conc 33.9 % (30-36); Mean Corpuscular Hemoglobin 32.2 PG (26-34); Monocytes Absolute Auto 1000 /uL (0-900); Neutrophils Absolute Auto 7300 /uL (1500-7000); Neutrophils Percent Auto 76.5 % (50-75); Platelet Count 315 X10^3/uL (150-400); Red Blood Cell Count 4.38 X10^6/uL (4.0-5.2); Red Cell Distribution Width 12.5 % (11.6-14.8); White Blood Cell Count 9.5 X10^3/uL (4.5-11.0)
[2019-07-17 17:17] LABS: Alanine Aminotransferase 17 IU/L (<35); Albumin 4.2 g/dL (3.5-5.0); Albumin Globulin Ratio 1.5 (1.0-2.8); Alkaline Phosphatase 55 U/L (38-126); Aspartate Aminotransferase 20 IU/L (14-36); Bilirubin Total 0.4 mg/dL (0.2-1.3); Blood Urea Nitrogen 24 mg/dL (7-17); Calcium 9.5 mg/dL (8.4-10.2); Carbon Dioxide 33 mmol/L (22-32); Chloride 98 mmol/L (98-107); Estimated Glomerular Filt Rate > 60.0 mL/min (>60); Globulin 2.8 g/dL (1.7-4.1); Glucose 97 mg/dL (80-110); HEMOLYSIS < 15 (0-50); Lipase 163 U/L (23-300); Potassium 4.3 mmol/L (3.4-5.1); Sodium 137 mmol/L (137-145)
== END ==
PROVIDERS: PCP Family Medicine; Visit Provider Family Medicine
DX: R10.9 Unspecified abdominal pain (principal)
CPT/HCPCS: 36415; 80053; 83690; 85025

== ENCOUNTER → 2019-07-18 10:41 | Outpatient (CLI) | payer OTHER, MEDICARE, SELFPAY ==
[2019-06-30 00:12] VITALS: BMI 19.2
[2019-07-18 12:16] LABS: Clostridium Difficile Tox PCR Negative for C. diff
== END ==
PROVIDERS: PCP Family Medicine; Visit Provider Family Medicine
DX: R10.9 Unspecified abdominal pain (principal)
CPT/HCPCS: 87493

== ENCOUNTER → 2019-08-21 14:45 | Outpatient (CLI) | payer MEDICARE, OTHER, SELFPAY ==
[2019-06-30 00:12] VITALS: BMI 19.2
--- NOTE | 2019-08-21 14:51 | DI.MG.S_ITS ---
BILATERAL DIGITAL SCREENING MAMMOGRAM 3D/2D WITH CAD: 08/21/2019 CLINICAL: Routine screening. Comparison is made to exams dated: 06/14/2018 mammogram, 06/01/2017 mammogram, and 05/26/2016 mammogram - [facility]. The tissue of both breasts is extremely dense, which lowers the sensitivity of mammography. Current study was also evaluated with a Computer Aided Detection (CAD) system. No significant masses, calcifications, or other findings are seen in either breast. There has been no significant interval change. IMPRESSION: NEGATIVE There is no mammographic evidence of malignancy. A 1 year screening mammogram is recommended. This exam was interpreted at Station ID: [id number]. NOTE: For mammograms, a report in lay terms will be sent to the patient. Approximately 15% of breast malignancies will not be visualized mammographically. In the management of a palpable breast mass, a negative mammogram must not discourage biopsy of a clinically suspicious lesion. Electronically Signed By: Thalia murphy/fatoumata:08/21/2019 16:09:00 letter sent: Normal Exam ACR BI-RADS Category 1: Negative 3341F
== END ==
PROVIDERS: PCP Family Medicine; Referring Provider Family Medicine; Visit Provider Family Medicine
DX: Z12.31 Encounter for screening mammogram for malignant neoplasm of breast (principal)
CPT/HCPCS: 77063; 77067

== ENCOUNTER → 2020-01-30 07:07 | Outpatient (CLI) | payer MEDICARE, OTHER, SELFPAY ==
[2019-06-30 00:12] VITALS: BMI 19.2
[2020-01-30 08:43] LABS: Alanine Aminotransferase 25 IU/L (<35); Albumin 4.3 g/dL (3.5-5.0); Albumin Globulin Ratio 1.7 (1.0-2.8); Alkaline Phosphatase 56 U/L (38-126); Aspartate Aminotransferase 31 IU/L (14-36); BUN Creatinine Ratio 38.8 (6-22); Bilirubin Total 0.4 mg/dL (0.2-1.3); Blood Urea Nitrogen 26 mg/dL (7-17); Calcium 9.2 mg/dL (8.4-10.2); Carbon Dioxide 29 mmol/L (22-32); Chloride 102 mmol/L (98-107); Cholesterol 148 mg/dL (140-199); Estimated Glomerular Filt Rate > 60.0 mL/min (>60); Globulin 2.6 g/dL (1.7-4.1); Glucose 86 mg/dL (80-110); HDL Cholesterol 63 mg/dL (40-60); HEMOLYSIS < 15 (0-50); LDL Cholesterol Calculated 73 mg/dL (<100); Potassium 4.3 mmol/L (3.4-5.1); Sodium 138 mmol/L (137-145); Total Protein 6.9 g/dL (6.3-8.2); Triglycerides 58 mg/dL (35-150)
== END ==
PROVIDERS: PCP Family Medicine; Referring Provider Family Medicine; Visit Provider Family Medicine
DX: E78.5 Hyperlipidemia, unspecified (principal)
CPT/HCPCS: 36415; 80053; 80061

== ENCOUNTER → 2020-06-04 15:37 | Outpatient (CLI) | payer MEDICARE, OTHER, SELFPAY ==
[2019-06-30 00:12] VITALS: BMI 19.2
--- NOTE | 2020-06-04 15:38 | DI.MRI.S_ITS ---
PROCEDURE: MR HEAD/BRAIN WO/W CON INDICATIONS: Meningioma TECHNIQUE: Noncontrast axial T1 spin echo, axial T2 fast spin echo, sagittal and axial FLAIR, coronal T2 fast spin echo, axial gradient echo, axial diffusion and ADC through the brain. After the administration of contrast, axial and coronal T1 spin echo with fat saturation through the brain. COMPARISON: [facility], MR, MR HEAD/BRAIN WO/W CON, 05/20/2019, 11:30. FINDINGS: Image quality: Excellent. CSF spaces: Basal cisterns are patent. No extra-axial fluid collections. Ventricles are normal in size and shape. Brain: No midline shift. No intracranial bleeds . The small right parafalcine high T1 signal intensity focus is unchanged. No abnormal intracranial enhancement. There is cerebral volume loss for age. There is periventricular white matter chronic small vessel ischemic change. The brainstem appears normal. Diffusion-weighted images demonstrate no acute ischemic insults. No chronic ischemic insults. Normal intravascular flow voids are present. Skull and face: Calvarial marrow is normal in signal. Orbits appear normal. Sinuses: Sinuses and mastoids appear clear. IMPRESSION: 1. No change in right parafalcine calcification versus meningioma. No further follow-up of this lesion is recommended, unless clinical status changes. Dictated by: Kerrie Herzog M.D. on 06/04/2020 at 16:43 Approved by: Kerrie Herzog M.D. on 06/04/2020 at 16:45
== END ==
PROVIDERS: PCP Family Medicine; Referring Provider Family Medicine; Visit Provider Family Medicine
DX: D32.9 Benign neoplasm of meninges, unspecified (principal)
CPT/HCPCS: 70553

== ENCOUNTER → 2020-07-16 12:28 | Outpatient (CLI) | payer MEDICARE, OTHER, SELFPAY ==
[2019-06-30 00:12] VITALS: BMI 19.2
[2020-07-16] MEDS: COVID-19 VACC #1, MRNA(MOD) 100 MCG/0.5 ML VIAL IM (12:34)
== END ==
PROVIDERS: PCP Family Medicine; Visit Provider Internal Medicine
DX: Z23 Encounter for immunization (principal)
CPT/HCPCS: 0011A; 91301

== ENCOUNTER → 2020-08-13 10:50 | Outpatient (CLI) | payer MEDICARE, OTHER, SELFPAY ==
[2019-06-30 00:12] VITALS: BMI 19.2
[2020-08-13] MEDS: COVID-19 VACC #2, MRNA(MOD) 100 MCG/0.5 ML VIAL IM (11:01)
== END ==
PROVIDERS: PCP Family Medicine; Visit Provider Internal Medicine
DX: Z23 Encounter for immunization (principal)
CPT/HCPCS: 0012A; 91301

== ENCOUNTER → 2020-08-27 10:30 | Outpatient (CLI) | payer MEDICARE, OTHER, SELFPAY ==
[2019-06-30 00:12] VITALS: BMI 19.2
--- NOTE | 2020-08-27 10:33 | DI.MG.S_ITS ---
BILATERAL DIGITAL SCREENING MAMMOGRAM 3D/2D WITH CAD: 08/27/2020 CLINICAL: Routine Screening. Comparison is made to exams dated: 08/21/2019 mammogram, 06/14/2018 mammogram, and 06/01/2017 mammogram - [facility]. The tissue of both breasts is extremely dense, which lowers the sensitivity of mammography. Current study was also evaluated with a Computer Aided Detection (CAD) system. No significant masses, calcifications, or other findings are seen in either breast. There has been no significant interval change. IMPRESSION: NEGATIVE There is no mammographic evidence of malignancy. A 1 year screening mammogram is recommended. This exam was interpreted at Station ID: [id number]. NOTE: For mammograms, a report in lay terms will be sent to the patient. Approximately 15% of breast malignancies will not be visualized mammographically. In the management of a palpable breast mass, a negative mammogram must not discourage biopsy of a clinically suspicious lesion. Electronically Signed By: Rafael aparicio/fatoumata:08/27/2020 11:27:50 letter sent: Normal Exam ACR BI-RADS Category 1: Negative 3341F
== END ==
PROVIDERS: PCP Family Medicine; Referring Provider Family Medicine; Visit Provider Family Medicine
DX: Z12.31 Encounter for screening mammogram for malignant neoplasm of breast (principal)
CPT/HCPCS: 77063; 77067

== ENCOUNTER → 2021-02-15 07:00 | Outpatient (CLI) | payer MEDICARE, OTHER, SELFPAY ==
[2019-06-30 00:12] VITALS: BMI 19.2
[2021-02-15 08:39] LABS: Alanine Aminotransferase 26 IU/L (<35); Albumin 4.4 g/dL (3.5-5.0); Albumin Globulin Ratio 1.8 (1.0-2.8); Alkaline Phosphatase 44 U/L (38-126); Aspartate Aminotransferase 32 IU/L (14-36); BUN Creatinine Ratio 37.9 (6-22); Bilirubin Total 0.5 mg/dL (0.2-1.3); Blood Urea Nitrogen 25 mg/dL (7-17); Calcium 9.1 mg/dL (8.4-10.2); Carbon Dioxide 30 mmol/L (22-32); Chloride 102 mmol/L (98-107); Estimated Glomerular Filt Rate > 60.0 mL/min (>60); Globulin 2.5 g/dL (1.7-4.1); Glucose 84 mg/dL (80-110); HEMOLYSIS < 15 (0-50); Sodium 137 mmol/L (137-145); Total Protein 6.9 g/dL (6.3-8.2)
== END ==
PROVIDERS: PCP Family Medicine; Referring Provider Family Medicine; Visit Provider Family Medicine
DX: Z13.1 Encounter for screening for diabetes mellitus (principal); E78.5 Hyperlipidemia, unspecified
CPT/HCPCS: 36415; 80053

== ENCOUNTER → 2021-05-21 12:15 | Outpatient (CLI) | payer MEDICARE, OTHER, SELFPAY ==
[2019-06-30 00:12] VITALS: BMI 19.2
[2021-05-21 12:38] LABS: Add Manual Diff / Slide Review NO; Basophils Absolute Auto 0 /uL (0-100); Basophils Percent Auto 0.5 % (0-2); Eosinophils Absolute Auto 100 /uL (0-450); Eosinophils Percent Auto 2.4 % (2-4); Hematocrit 41.6 % (36-46); Lymphocytes Absolute Auto 1300 /uL (1100-4500); Lymphocytes Percent Auto 28.8 % (25-40); Mean Corpuscular HGB Conc 33.8 % (30-36); Mean Corpuscular Hemoglobin 32.3 PG (26-34); Mean Corpuscular Volume 95.8 fL (80-100); Monocytes Absolute Auto 500 /uL (0-900); Monocytes Percent Auto 11.2 % (3-14); Neutrophils Absolute Auto 2600 /uL (1500-7000); Neutrophils Percent Auto 57.1 % (50-75); Platelet Count 253 X10^3/uL (150-400); Red Blood Cell Count 4.34 X10^6/uL (4.0-5.2); Red Cell Distribution Width 12.8 % (11.6-14.8); White Blood Cell Count 4.6 X10^3/uL (4.5-11.0)
[2021-05-21 13:20] LABS: TSH w/ Reflex to FT4 1.47 uIU/mL (0.47-4.68)
[2021-05-21 13:39] LABS: Vitamin B12 > 1000 pg/mL (239-931)
== END ==
PROVIDERS: PCP Family Medicine; Referring Provider Family Medicine; Visit Provider Family Medicine
DX: R20.2 Paresthesia of skin (principal)
CPT/HCPCS: 36415; 82607; 84443; 85025

== ENCOUNTER → 2021-09-09 15:57 | Outpatient (CLI) | payer MEDICARE, OTHER, SELFPAY ==
[2019-06-30 00:12] VITALS: BMI 19.2
--- NOTE | 2021-09-09 | DI.MG.S_ITS ---
BILATERAL DIGITAL SCREENING MAMMOGRAM 3D/2D WITH CAD: 09/09/2021 CLINICAL: Routine screening. Comparison is made to exams dated: 08/27/2020 mammogram, 08/21/2019 mammogram, and 06/14/2018 mammogram - [facility]. The tissue of both breasts is extremely dense, which lowers the sensitivity of mammography. Current study was also evaluated with a Computer Aided Detection (CAD) system. No significant masses, calcifications, or other findings are seen in either breast. There has been no significant interval change. IMPRESSION: NEGATIVE There is no mammographic evidence of malignancy. A 1 year screening mammogram is recommended. This exam was interpreted at Station ID: [id number]. NOTE: For mammograms, a report in lay terms will be sent to the patient. Approximately 15% of breast malignancies will not be visualized mammographically. In the management of a palpable breast mass, a negative mammogram must not discourage biopsy of a clinically suspicious lesion. Electronically Signed By: Chaparro Raman M.D., jr/fatoumata:09/10/2021 08:07:07 letter sent: Normal Exam ACR BI-RADS Category 1: Negative 3341F
== END ==
PROVIDERS: PCP Family Medicine; Referring Provider Family Medicine; Visit Provider Family Medicine
DX: Z12.31 Encounter for screening mammogram for malignant neoplasm of breast (principal)
CPT/HCPCS: 77063; 77067

== ENCOUNTER → 2022-04-12 06:57 | Outpatient (CLI) | payer MEDICARE, OTHER, SELFPAY ==
[2019-06-30 00:12] VITALS: BMI 19.2
[2022-04-12 07:32] LABS: Appearance Urine UA CLEAR; Bilirubin Urine UA NEGATIVE (NEGATIVE); Color Urine UA YELLOW; Glucose Urine UA NEGATIVE (Negative); Ketones Urine UA NEGATIVE (NEGATIVE); Leukocyte Esterase Urine UA NEGATIVE (NEGATIVE); Nitrite Urine UA NEGATIVE (Negative); Occult Blood Urine UA 1+ (Negative); Protein Urine UA NEGATIVE (Negative); Specific Gravity Urine UA <=1.005 (1.000-1.035); Urobilinogen Urine UA 0.2 E.U./dL (0.2)
[2022-04-12 07:33] LABS: pH Urine UA 5.5 (4.5-8.0)
[2022-04-12 07:38] LABS: Add Manual Diff / Slide Review NO; Bacteria Urine None Seen; Basophils Absolute Auto 0 /uL (0-100); Basophils Percent Auto 0.7 % (0-2); Culture Indicated Urine Cult Not Indicated; Eosinophils Absolute Auto 100 /uL (0-450); Eosinophils Percent Auto 2.8 % (2-4); Hemoglobin 14.5 g/dL (12.0-16.0); Lymphocytes Absolute Auto 1200 /uL (1100-4500); Lymphocytes Percent Auto 30.3 % (25-40); Mean Corpuscular HGB Conc 34.6 % (30-36); Mean Corpuscular Hemoglobin 32.3 PG (26-34); Mean Corpuscular Volume 93.4 fL (80-100); Monocytes Absolute Auto 400 /uL (0-900); Neutrophils Absolute Auto 2300 /uL (1500-7000); Neutrophils Percent Auto 56.2 % (50-75); Platelet Count 194 X10^3/uL (150-400); RBC Urine 0-1/HPF (0-5/HPF); Red Cell Distribution Width 12.8 % (11.6-14.8); Squamous Epithelial Cell Urine 0-1 /HPF (0-5/HPF); WBC Urine None Seen (0-5/HPF); White Blood Cell Count 4.1 X10^3/uL (4.5-11.0)
[2022-04-12 08:10] LABS: Alanine Aminotransferase 25 IU/L (<35); Albumin 4.3 g/dL (3.5-5.0); Albumin Globulin Ratio 1.7 (1.0-2.8); Alkaline Phosphatase 55 U/L (38-126); Aspartate Aminotransferase 29 IU/L (14-36); Bilirubin Total 0.7 mg/dL (0.2-1.3); Blood Urea Nitrogen 20 mg/dL (7-17); Calcium 8.9 mg/dL (8.4-10.2); Carbon Dioxide 28 mmol/L (22-32); Chloride 101 mmol/L (98-107); Cholesterol 149 mg/dL (140-199); Estimated Glomerular Filt Rate > 60 mL/min (>60); Globulin 2.6 g/dL (1.7-4.1); Glucose 91 mg/dL (80-110); HDL Cholesterol 66 mg/dL (40-60); HEMOLYSIS < 15 (0-50); LDL Cholesterol Calculated 73 mg/dL (<100); Potassium 4.3 mmol/L (3.4-5.1); Sodium 139 mmol/L (137-145); Total Protein 6.9 g/dL (6.3-8.2); Triglycerides 52 mg/dL (35-150)
[2022-04-12 08:42] LABS: TSH w/ Reflex to FT4 2.26 uIU/mL (0.47-4.68)
== END ==
PROVIDERS: PCP Pediatrics; Referring Provider Pediatrics; Visit Provider Pediatrics
DX: E78.5 Hyperlipidemia, unspecified (principal); M85.80 Other specified disorders of bone density and structure, unspecified site; J30.9 Allergic rhinitis, unspecified; R51.9 Headache, unspecified
CPT/HCPCS: 36415; 80053; 80061; 81003; 81015; 82306; 84443; 85025

== ENCOUNTER → 2022-09-14 13:10 | Outpatient (CLI) | payer MEDICARE, OTHER, SELFPAY ==
[2019-06-30 00:12] VITALS: BMI 19.2
--- NOTE | 2022-09-14 | DI.MG.S_ITS ---
BILATERAL DIGITAL SCREENING MAMMOGRAM 3D/2D WITH CAD: 09/14/2022 CLINICAL: Routine screening. Comparison is made to exams dated: 09/09/2021 mammogram, 08/27/2020 mammogram, and 08/21/2019 mammogram - [facility]. Both breasts are extremely dense, which lowers the sensitivity of mammography (category d />75% glandular tissue). Current study was also evaluated with a Computer Aided Detection (CAD) system. No significant masses, calcifications, or other findings are seen in either breast. There has been no significant interval change. IMPRESSION: NEGATIVE There is no mammographic evidence of malignancy. A 1 year screening mammogram is recommended. Based on the Tyrer Cuzick model (a risk assessment model) the patient's lifetime risk is 9.4% and her 10 year risk is 9.4%. According to the ACR, ACS, and NCCN guidelines, an annual breast MRI exam along with mammogram is recommended if the patient's lifetime risk is 20% or greater. This exam was interpreted at Station ID: [id number]. NOTE: For mammograms, a report in lay terms will be sent to the patient. Approximately 15% of breast malignancies will not be visualized mammographically. In the management of a palpable breast mass, a negative mammogram must not discourage biopsy of a clinically suspicious lesion. Electronically Signed By: Matthieu grimm/fatoumata:09/14/2022 13:36:09 letter sent: Normal Exam ACR BI-RADS Category 1: Negative 3341F
== END ==
PROVIDERS: PCP Family Medicine; Referring Provider Family Medicine; Visit Provider Family Medicine
DX: Z12.31 Encounter for screening mammogram for malignant neoplasm of breast (principal)
CPT/HCPCS: 77063; 77067

== ENCOUNTER 2022-10-27 10:07 | Emergency (ER) | payer MEDICARE, OTHER, SELFPAY ==
[2019-06-30 00:12] VITALS: BMI 19.2
[2022-10-27 10:19] VITALS: BP 130/63; PULSE 53; RESP 14; TEMP 36.6; O2SAT 98; BMI 19.7
[2022-10-27 12:45] VITALS: BP 129/59; PULSE 49; O2SAT 99
--- NOTE | 2022-10-27 13:44 | ED.FALL ---
HPI - Fall <Pushpa Rouse PA-C - Last Filed: 10/27/22 14:56> General Chief Complaint: Fall Stated Complaint: fall, head wound Time Seen by Provider: 10/27/22 12:32 Source: patient Mode of arrival: Ambulatory History of Present Illness HPI Narrative: 77-year-old female presents with concern for a fall today with abrasion to her knees and her right forehead. Patient states that she was going down her driveway and was right near the recycle and trash bins and the gravel on the road was loose and she lost her footing and went down to her knees and then when she was on the ground her had made contact with either the side of the recycling can or the wheel of the recycling can. She states she did not lose consciousness but did have a fair amount of bleeding from her forehead at 1st so she went back to the house to try to stop it and came in today for further evaluation to make sure she did not need stitches. Patient states she did have a bit of pain at the site of the bleeding on her head initially but this has improved, she denies any vision changes, balance issues or blood thinners. She has been ambulating well and does not feel that her knee is particularly painful except at the site of the abrasion. Related Data Home Medications Medication Instructions Recorded Confirmed ASCORBIC ACID (#VITAMIN C) 500 mg PO QDAY ##0 04/06/11 04/29/22 CA PANTOTHENATE/FOLIC ACID/VIT 1 tab PO QDAY ##0 04/06/11 04/29/22 (MULTIVITAMIN) cholecalciferol (vitamin D3) 25 1,000 unit PO DAILY 01/19/18 04/29/22 mcg (1,000 unit) capsule brimonidine 0.2 %-timolol 0.5 % 1 drp ophthalmic (eye) Q12H 09/06/18 04/29/22 eye drops (Combigan) Previous Rx's Medication Instructions Recorded mupirocin 2 % topical ointment 1 applic topical BID #30 grams 10/28/20 trazodone 150 mg tablet See Rx Instructions .Route 12/24/21 .COMPLEX #135 tabs frovatriptan 2.5 mg tablet See Rx Instructions .Route 05/16/22 .COMPLEX #30 tabs atorvastatin 20 mg tablet See Rx Instructions .Route 09/06/22 .COMPLEX #90 tabs Allergies Allergy/AdvReac Type Severity Reaction Status Date / Time No Known Drug Allergies Allergy Verified 10/27/22 10:19 Review of Systems <Pushpa Rouse PA-C - Last Filed: 10/27/22 14:56> Review of Systems Narrative: See HPI Patient History <Pushpa Rouse PA-C - Last Filed: 10/27/22 14:56> Medical History Abnormal Pap smear of cervix (2001) Chronic headaches (1996) Dog bite 1 para 1 Hayfever History of eczema as a child Meningioma Menopause (~1995) Myopia (2010) Retinal degeneration (2010) SVT (supraventricular tachycardia) (2003) Surgical History Severe nausea following anesthesia Status post colonoscopy (2013) Status post tubal ligation (1994) Family History Father Polycystic kidney Crohn's disease Grandfather Cancer Mother Diabetes mellitus, type 2 Dementia Pneumonia Grandmother No problems noted. Grandfather Lung cancer Grandmother Dementia Social History household members: spouse Smoking Status: Never smoker Smoking Status: Never smoker alcohol intake frequency: 0-2 drinks per day Substance Use Type: does not use Exam <Pushpa Rouse PA-C - Last Filed: 10/27/22 14:56> Narrative Exam Narrative: GENERAL: 77 year old patient appears stated age. Well-developed patient, in mild distress. HEAD: There is a abrasions/superficial laceration of the right forehead above the eyebrow with bleeding controlled. Otherwise Atraumatic. Normocephalic, normal bite, no bleeding from the mouth or nares. EYES: Pupils equal round and reactive. Extraocular motions intact. No scleral icterus. No injection or drainage. ENT: Nose without bleeding, purulent drainage. Airway patent. NECK: Trachea midline. Non tender, no C-spine tenderness CARDIOVASCULAR: Regular rate and rhythm without murmurs, gallops, or rubs. RESPIRATORY: Clear to auscultation. Breath sounds equal bilaterally. No wheezes, rales, or rhonchi. GASTROINTESTINAL: Abdomen nondistended. EXTREMITIES: There are abrasions to bilateral knees, the left knee is superficial with very slight bruising and no swelling noted, the right knee is full-thickness though still superficial abrasion with normal range of motion that is pain-free and very mild swelling. No edema or joint tenderness. BACK: No C-spine tenderness deformity or step-offs, Nontender without deformity or crepitance. No flank tenderness. NEURO: AOx3. SKIN: No rash or erythema of visible areas Initial Vital Signs Initial Vital Signs: Vital Signs Temperature 97.9 F 10/27/22 10:19 Pulse Rate 53 L 10/27/22 10:19 Respiratory Rate 14 10/27/22 10:19 Blood Pressure 130/63 10/27/22 10:19 Pulse Oximetry 98 10/27/22 10:19 Oxygen Delivery Method Room Air 10/27/22 10:19 <Juan M Castro MD - Last Filed: 11/03/22 04:53> Initial Vital Signs Initial Vital Signs: Vital Signs Temperature 97.9 F 10/27/22 10:19 Pulse Rate 53 L 10/27/22 10:19 Respiratory Rate 14 10/27/22 10:19 Blood Pressure 130/63 10/27/22 10:19 Pulse Oximetry 98 10/27/22 10:19 Oxygen Delivery Method Room Air 10/27/22 10:19 Procedures <Pushpa Rouse PA-C - Last Filed: 10/27/22 14:56> Laceration Repair Laceration 1: Time of procedure: 14:00 Site: face Side (If applicable): right Size (cm): 1 Description: flap and other (superficial flap/avulsion) Depth: simple, single layer Local Anesthetic: other anesthetic (none) Pre-repair: irrigated extensively Skin layer closed with: dermabond Technique: other Course <Pushpa Rouse PA-C - Last Filed: 10/27/22 14:56> Orders Ordered: Discontinued Medications Bacitracin (Bacitracin Oint 0.9 Gm Pckt) 1 applic TOP NOW ONE Stop: 10/27/22 13:45 Last Admin: 10/27/22 14:35 Dose: 1 applic Documented By: NR Diphtheria/Tetanus/Acell Pertussis (Tet,Diph,Pertuss(Acell),Vac/Pf 0.5 Ml Syringe) 0.5 ml IM .ONCE ONE Stop: 10/27/22 14:16 Last Admin: 10/27/22 14:27 Dose: 0.5 ml Documented By: NR Vital Signs Vital signs: Vital Signs - 8 hr 10/27/22 10:19 10/27/22 12:45 Temperature 97.9 F Pulse Rate 53 L 49 L Respiratory Rate 14 Blood Pressure 130/63 129/59 L Pulse Oximetry 98 99 Oxygen Delivery Method Room Air Room Air <Juan M Castro MD - Last Filed: 11/03/22 04:53> Orders Ordered: Discontinued Medications Bacitracin (Bacitracin Oint 0.9 Gm Pckt) 1 applic TOP NOW ONE Stop: 10/27/22 13:45 Last Admin: 10/27/22 14:35 Dose: 1 applic Documented By: NR Diphtheria/Tetanus/Acell Pertussis (Tet,Diph,Pertuss(Acell),Vac/Pf 0.5 Ml Syringe) 0.5 ml IM .ONCE ONE Stop: 10/27/22 14:16 Last Admin: 10/27/22 14:27 Dose: 0.5 ml Documented By: NR Vital Signs Vital signs: Vital Signs - 8 hr 10/27/22 10:19 10/27/22 12:45 Temperature 97.9 F Pulse Rate 53 L 49 L Respiratory Rate 14 Blood Pressure 130/63 129/59 L Pulse Oximetry 98 99 Oxygen Delivery Method Room Air Room Air MDM - Fall <Pushpa Rouse PA-C - Last Filed: 10/27/22 14:56> Differential Diagnosis Differential diagnosis: Likely other (Abrasion, contusion, minor head injury) Medical Records Attestation: I reviewed the patient's medical records. MDM Narrative Medical decision making narrative: This is a well-appearing 77-year-old woman who appears younger than her stated age who had a fall from standing today on loose gravel slipped and went down to her knees and thereafter hit her head against the wheel trash can in her driveway. She did not lose consciousness and based on the nature of the fall mechanism do not feel that she warrants a CT scan today. She has not had a persistent headache, vision changes or any other concerning symptoms she is not on blood thinners and her fall was initially stopped by her knees and she had a secondary impact that was more minor with her head. Her lacerations/abrasions are treated today in the emergency department with cleaning and antibiotic ointment. The forehead wound is closed with Dermabond with good result. Tetanus is updated today. Patient is counseled regarding return in emergency return precautions, she lives with her at home who will be keeping an eye on her as well. All questions answered. Discharge Plan Departure Patient Disposition: Home Clinical Impression: Fall, Abrasion of face, Abrasion of both knees Instructions: DI for Laceration Repair-Skin Glue Activity Restrictions/Additional Instructions: Thank you for letting us be part of your care today in the emergency department. You had a fall today and sustained abrasions to her knees and above your right eyebrow on her forehead. We did not do advanced imaging today because based on how you fell and the fact that you did not lose consciousness I think it is very unlikely that you have stained a brain injury, however it is important that you monitor for new or worsening symptoms including persistent or severe headache, vision change, coordination or balance problems, nausea, vomiting or other new symptoms of concern--and make sure that you get re-evaluated if these occur. We cleaned her wounds and closed your forehead wound with glue/Dermabond. You can continue to use topical antibiotic ointment on your knees and your nose. Please see the attached instructions regarding care of your laceration. There is no evidence of an emergent or life threatening illness at this time, but follow up with your doctor in 1-2 days is recommended nonetheless to continue to rule out serious underlying causes of your symptoms. Please call the office for an appointment. Please return to the Emergency Department for any worsening or persistent symptoms. Please take medications as directed. Prescriptions: No Action mupirocin 2 % ointment 1 applic topical BID Qty: 30 0RF ASCORBIC ACID (#VITAMIN C) 500 mg PO QDAY Qty: 0 CA PANTOTHENATE/FOLIC ACID/VIT (MULTIVITAMIN) 1 tab PO QDAY Qty: 0 Rx Instructions: 1/2 AM & 1/2 PM frovatriptan 2.5 mg tablet See Rx Instructions .ROUTE .COMPLEX Qty: 30 11RF Dose Instruction: TAKE 1 TAB BY MOUTH NEEDED AT ONSET OF MIGRAINE HEADACHE. MAY REPEAT IN 2 HOURS IF SYMPTOMS PERSISTS. MAXIUMUM 3 DAYS WEEKLY. Rx Instructions: TAKE 1 TAB BY MOUTH NEEDED AT ONSET OF MIGRAINE HEADACHE. MAY REPEAT IN 2 HOURS IF SYMPTOMS PERSISTS. MAXIUMUM 3 DAYS WEEKLY. atorvastatin 20 mg tablet See Rx Instructions .ROUTE .COMPLEX Qty: 90 2RF Dose Instruction: TAKE ONE TABLET BY MOUTH NIGHTLY AT BEDTIME Rx Instructions: TAKE ONE TABLET BY MOUTH NIGHTLY AT BEDTIME cholecalciferol (vitamin D3) 1,000 unit capsule 1,000 unit PO DAILY trazodone 150 mg tablet See Rx Instructions .ROUTE .COMPLEX Qty: 135 3RF Dose Instruction: TAKE ONE TABLET BY MOUTH daily AT BEDTIME Rx Instructions: TAKE ONE AND A HALF TABLETS BY MOUTH DAILY AT BEDTIME Combigan 0.2-0.5 % Drops 1 drp ophthalmic (eye) Q12H Referrals: Dary Kruse DO [Primary Care Provider] - Stand Alone Forms: Patient Portal/API <Juan M Castro MD - Last Filed: 11/03/22 04:53> Cosign ED Attending Cosignature Attestation: I was immediately available in the department for consultation. ?This documentation has been reviewed and I agree with assessment and plan. Supervised by Juan M Castro MD
[2022-10-27] MEDS: TET,DIPH,PERTUSS(ACELL),VAC/PF 0.5 ML SYRINGE IM (14:27)
[2022-10-27] MEDS: BACITRACIN OINT 0.9 GM PCKT 1 APPLIC TOP (14:35)
== END 2022-10-27 14:36 | disposition home or self-care (01) ==
PROVIDERS: Emergency Provider Student in an Organized Health Care Education/Training Program; PCP Family Medicine
DX: S00.81XA Abrasion of other part of head, initial encounter (principal); S80.212A Abrasion, left knee, initial encounter; S80.211A Abrasion, right knee, initial encounter; W18.30XA Fall on same level, unspecified, initial encounter; Z23 Encounter for immunization
CPT/HCPCS: 12011; 90471; 99283; 90715

== ENCOUNTER → 2023-04-06 07:04 | Outpatient (CLI) | payer MEDICARE, OTHER, SELFPAY ==
[2019-06-30 00:12] VITALS: BMI 19.2
[2023-04-06 07:35] LABS: Hematocrit 43.4 % (36-46); Hemoglobin 14.6 g/dL (12.0-16.0); Mean Corpuscular HGB Conc 33.8 % (30-36); Mean Corpuscular Hemoglobin 32.4 PG (26-34); Mean Corpuscular Volume 95.9 fL (80-100); Platelet Count 237 X10^3/uL (150-400); Red Blood Cell Count 4.52 X10^6/uL (4.0-5.2); Red Cell Distribution Width 13.1 % (11.6-14.8); White Blood Cell Count 4.5 X10^3/uL (4.5-11.0)
[2023-04-06 07:57] LABS: Alanine Aminotransferase 25 IU/L (<35); Albumin 4.4 g/dL (3.5-5.0); Albumin Globulin Ratio 1.8 (1.0-2.8); Alkaline Phosphatase 48 U/L (38-126); Aspartate Aminotransferase 29 IU/L (14-36); BUN Creatinine Ratio 31.2 (6-22); Bilirubin Total 0.7 mg/dL (0.2-1.3); Blood Urea Nitrogen 24 mg/dL (7-17); Calcium 9.3 mg/dL (8.4-10.2); Carbon Dioxide 28 mmol/L (22-32); Chloride 100 mmol/L (98-107); Cholesterol 167 mg/dL (140-199); Estimated Glomerular Filt Rate > 60 mL/min (>60); Globulin 2.5 g/dL (1.7-4.1); Glucose 95 mg/dL (80-110); HDL Cholesterol 72 mg/dL (40-60); HEMOLYSIS < 15 (0-50); LDL Cholesterol Calculated 82 mg/dL (<100); Potassium 3.7 mmol/L (3.4-5.1); Sodium 137 mmol/L (137-145); Total Protein 6.9 g/dL (6.3-8.2); Triglycerides 65 mg/dL (35-150)
[2023-04-06 08:01] LABS: High Sensitivity CRP - Cardiac < 0.3 mg/L (1.0-3.0)
[2023-04-06 08:28] LABS: TSH w/ Reflex to FT4 1.99 uIU/mL (0.47-4.68)
== END ==
PROVIDERS: PCP Family Medicine; Referring Provider Family Medicine; Visit Provider Family Medicine
DX: R00.2 Palpitations (principal); E78.5 Hyperlipidemia, unspecified; R53.83 Other fatigue
CPT/HCPCS: 36415; 80053; 80061; 84443; 85027; 86140

== ENCOUNTER → 2023-04-24 13:46 | Outpatient (CLI) | payer MEDICARE, OTHER, SELFPAY ==
[2019-06-30 00:12] VITALS: BMI 19.2
== END ==
PROVIDERS: PCP Family Medicine; Referring Provider Family Medicine; Visit Provider Family Medicine
DX: R00.2 Palpitations (principal); E78.5 Hyperlipidemia, unspecified; R53.83 Other fatigue
CPT/HCPCS: 93242

== ENCOUNTER → 2023-09-19 11:08 | Outpatient (CLI) | payer MEDICARE, OTHER, SELFPAY ==
[2019-06-30 00:12] VITALS: BMI 19.2
--- NOTE | 2023-09-19 11:09 | DI.MG.S_ITS ---
BILATERAL DIGITAL SCREENING MAMMOGRAM 3D/2D WITH CAD: 09/19/2023 CLINICAL: Routine screening. Comparison is made to exams dated: 09/14/2022 mammogram, 09/09/2021 mammogram, and 08/27/2020 mammogram - [facility]. Both breasts are extremely dense, which lowers the sensitivity of mammography (category d />75% glandular tissue). Current study was also evaluated with a Computer Aided Detection (CAD) system. No significant masses, calcifications, or other findings are seen in either breast. There has been no significant interval change. IMPRESSION: NEGATIVE There is no mammographic evidence of malignancy. A 1 year screening mammogram is recommended. Based on the Tyrer Cuzick model (a risk assessment model) the patient's lifetime risk is 8.6% and her 10 year risk is 0.0%. According to the ACR, ACS, and NCCN guidelines, an annual breast MRI exam along with mammogram is recommended if the patient's lifetime risk is 20% or greater. This exam was interpreted at Station ID: [id number]. NOTE: For mammograms, a report in lay terms will be sent to the patient. Approximately 15% of breast malignancies will not be visualized mammographically. In the management of a palpable breast mass, a negative mammogram must not discourage biopsy of a clinically suspicious lesion. Electronically Signed By: Calvin hernandez/[email or web address]:09/19/2023 13:08:54 letter sent: Normal Exam ACR BI-RADS Category 1: Negative [id number]
== END ==
PROVIDERS: PCP Family Medicine; Referring Provider Family Medicine; Visit Provider Family Medicine
DX: Z12.31 Encounter for screening mammogram for malignant neoplasm of breast (principal); R92.343 Mammographic extreme density, bilateral breasts
CPT/HCPCS: 77063; 77067

== ENCOUNTER → 2024-01-16 07:00 | Outpatient (CLI) | payer MEDICARE, OTHER, SELFPAY ==
[2019-06-30 00:12] VITALS: BMI 19.2
[2024-01-16 08:10] LABS: Add Manual Diff / Slide Review NO; Basophils Absolute Auto 0 /uL (0-100); Basophils Percent Auto 0.7 % (0-2); Eosinophils Absolute Auto 100 /uL (0-450); Hematocrit 42.3 % (36-46); Hemoglobin 14.4 g/dL (12.0-16.0); Lymphocytes Absolute Auto 1000 /uL (1100-4500); Mean Corpuscular Hemoglobin 32.4 PG (26-34); Mean Corpuscular Volume 95.4 fL (80-100); Monocytes Absolute Auto 400 /uL (0-900); Monocytes Percent Auto 9.2 % (3-14); Neutrophils Absolute Auto 2500 /uL (1500-7000); Neutrophils Percent Auto 61.1 % (50-75); Platelet Count 251 X10^3/uL (150-400); Red Blood Cell Count 4.43 X10^6/uL (4.0-5.2); Red Cell Distribution Width 12.8 % (11.6-14.8)
[2024-01-16 08:30] LABS: HEMOLYSIS < 15 (0-50); Iron 93 ug/dL (37-170)
[2024-01-16 08:41] LABS: Percent Iron Saturation 28 % (15-50); Total Iron Binding Capacity 328 ug/dL (265-497); Transferrin 252 mg/dL (206-381)
[2024-01-16 09:01] LABS: TSH w/ Reflex to FT4 1.91 uIU/mL (0.47-4.68)
[2024-01-16 10:01] LABS: Ferritin 36 ng/mL (11-264)
== END ==
PROVIDERS: PCP Family Medicine; Referring Provider Family Medicine; Visit Provider Family Medicine
DX: R55 Syncope and collapse (principal); R53.83 Other fatigue; R00.2 Palpitations
CPT/HCPCS: 36415; 82728; 83540; 83550; 84443; 85025

== ENCOUNTER → 2024-01-24 15:10 | Outpatient (CLI) | payer MEDICARE, OTHER, SELFPAY ==
[2019-06-30 00:12] VITALS: BMI 19.2
== END ==
PROVIDERS: PCP Family Medicine; Referring Provider Family Medicine; Visit Provider Family Medicine
DX: R06.02 Shortness of breath (principal); I50.9 Heart failure, unspecified; I21.9 Acute myocardial infarction, unspecified; I48.91 Unspecified atrial fibrillation; R00.2 Palpitations; I48.92 Unspecified atrial flutter; I49.9 Cardiac arrhythmia, unspecified; R00.1 Bradycardia, unspecified; R55 Syncope and collapse
CPT/HCPCS: 93246

== ENCOUNTER → 2024-02-07 11:07 | Outpatient (CLI) | payer MEDICARE, OTHER, SELFPAY ==
[2019-06-30 00:12] VITALS: BMI 19.2
[2024-02-07 13:25] LABS: Add Manual Diff / Slide Review NO; Basophils Absolute Auto 0 /uL (0-100); Basophils Percent Auto 0.5 % (0-2); Eosinophils Absolute Auto 100 /uL (0-450); Eosinophils Percent Auto 1.2 % (2-4); Hematocrit 42.2 % (36-46); Hemoglobin 14.1 g/dL (12.0-16.0); Lymphocytes Absolute Auto 1200 /uL (1100-4500); Lymphocytes Percent Auto 20.3 % (25-40); Mean Corpuscular HGB Conc 33.5 % (30-36); Mean Corpuscular Hemoglobin 31.6 PG (26-34); Mean Corpuscular Volume 94.2 fL (80-100); Monocytes Absolute Auto 600 /uL (0-900); Monocytes Percent Auto 9.1 % (3-14); Neutrophils Absolute Auto 4200 /uL (1500-7000); Neutrophils Percent Auto 68.9 % (50-75); Platelet Count 321 X10^3/uL (150-400); Red Blood Cell Count 4.48 X10^6/uL (4.0-5.2); Red Cell Distribution Width 12.7 % (11.6-14.8); White Blood Cell Count 6.1 X10^3/uL (4.5-11.0)
[2024-02-07 19:31] LABS: Alanine Aminotransferase 19 IU/L (<35); Albumin 3.7 g/dL (3.5-5.0); Albumin Globulin Ratio 1.5 (1.0-2.8); Alkaline Phosphatase 51 U/L (38-126); Aspartate Aminotransferase 21 IU/L (14-36); BUN Creatinine Ratio 30.7 (6-22); Bilirubin Total 0.5 mg/dL (0.2-1.3); Blood Urea Nitrogen 23 mg/dL (7-17); Carbon Dioxide 26 mmol/L (22-32); Chloride 104 mmol/L (98-107); Estimated Glomerular Filt Rate > 60 mL/min (>60); Globulin 2.5 g/dL (1.7-4.1); Glucose 102 mg/dL (80-110); HEMOLYSIS < 15 (0-50); Potassium 4.4 mmol/L (3.4-5.1); Sodium 137 mmol/L (137-145); Total Protein 6.2 g/dL (6.3-8.2)
== END ==
PROVIDERS: PCP Family Medicine; Referring Provider Family Medicine; Visit Provider Family Medicine
DX: R10.9 Unspecified abdominal pain (principal)
CPT/HCPCS: 36415; 80053; 85025

== ENCOUNTER → 2024-02-14 13:41 | Outpatient (CLI) | payer MEDICARE, OTHER, SELFPAY ==
[2019-06-30 00:12] VITALS: BMI 19.2
--- NOTE | 2024-02-14 13:42 | DI.ECHO.S_ITS ---
[facility]+ [facility] : : [address] : : [place] : : [id number] : : Phone: [phone] Echocardiogram Report + + :Name: ROXANNA RIDLEY Study Date: 02/14/2024 Height: 64 in : :[facility] ReadingLocation: Weight: 110 lb : : Gender: Female BSA: 1.5 m2 : :: 1945 Age: 78 yrs BP: 111/77 mmHg: :Reason For Study: BRADYCARDIA, PALPITATIONS : :Ordering Physician: : :FINN NUNEZ Performed By: Estefania Bautista : :Referring: FINN NUNEZ : + + Interpretation Summary The patient was in atrial flutter during the exam. The heart rate ranged between 77-90 bpm during the study. The ejection fraction is estimated to be 55-60%. The left atrium is mildly dilated. The right ventricle is normal in size and function. The right atrium is moderately dilated. There is mild mitral regurgitation. There is mild tricuspid regurgitation. The right ventricular systolic pressure is estimated to be at least 30 mmHg based on an estimated right atrial pressure of 3 mm Hg. There is a trivial pericardial effusion noted. Procedure: Images were not obtained from all of the standard acoustic windows due to the limited scope of the study. The study quality was technically limited. The study quality was technically adequate. The patient had an echocardiogram, but there is no comparison study available. The patient was in atrial flutter during the exam. The heart rate ranged between 77-90 bpm during the study. Left Ventricle: The left ventricle is normal in size and wall thickness. The ejection fraction is estimated to be 55-60%. Right Ventricle: The right ventricle is normal in size and function. Atria: The left atrium is mildly dilated. The right atrium is moderately dilated. Mitral Valve: The mitral valve is normal in structure and function. There is mild mitral regurgitation. Aortic Valve: The aortic valve is trileaflet. The aortic valve opens well. Tricuspid Valve: The tricuspid valve is normal. There is mild tricuspid regurgitation. The right ventricular systolic pressure is estimated to be at least 30 mmHg based on an estimated right atrial pressure of 3 mm Hg. Great Vessels: The IVC is of normal diameter and collapses greater than 50% with a sniff. This suggests a low right atrial pressure of 3 mm Hg. Pericardium/ Pleura There is a trivial pericardial effusion noted. There is no pleural effusion. MMode/2D Measurements & Calculations LVIDd: 4.2 cm IVC diam: 1.6 cm LVIDs: 3.1 cm FS: 25.7 % IVSd: 0.55 cm LVPWd: 0.68 cm LV lovell. diameter/BSA (cm/m^2): 2.8 LV sys. diameter/BSA (cm/m^2): 2.1 Doppler Measurements & Calculations TR max sia: 257.4 cm/sec TR max P.6 mmHg Reading Physician:03:07 PM
== END ==
PROVIDERS: PCP Family Medicine; Referring Provider Family Medicine; Visit Provider Family Medicine
DX: I08.1 Rheumatic disorders of both mitral and tricuspid valves (principal); I48.92 Unspecified atrial flutter; G45.0 Vertebro-basilar artery syndrome; R00.1 Bradycardia, unspecified; R00.2 Palpitations; Z86.79 Personal history of other diseases of the circulatory system
CPT/HCPCS: 93307

== ENCOUNTER → 2024-03-25 09:41 | Outpatient (CLI) | payer MEDICARE, OTHER, SELFPAY ==
[2019-06-30 00:12] VITALS: BMI 19.2
--- NOTE | 2024-03-25 09:43 | DI.CT.S_ITS ---
PROCEDURE: CT ANGIO CHEST INDICATIONS: AFIB / RULE OUT CAD TECHNIQUE: After the administration of intravenous contrast, 2.5 mm thick sections acquired from the lung apices to the posterior lung bases. Maximum intensity projection (MIP) oblique sagittal reformats were then acquired parallel to the aortic arch. For radiation dose reduction, the following was used: automated exposure control. COMPARISON: None. FINDINGS: Image quality: Diagnostic. Aorta: Aorta and great vessels are normal in size. No mural irregularity or contrast extravasation to suggest aortic injury. No definite coronary artery calcifications. Lower Neck: No enlarged lymph nodes. Thyroid: No thyroid nodules which require sonographic follow up, per consensus guidelines. Axillae: No enlarged lymph nodes. Chest Wall: Unremarkable. Bones: Unremarkable. Lungs and Pleura: No pneumothorax or pleural effusions. No consolidation or suspicious nodules. Bandlike opacity within the left lower lobe likely scar versus atelectasis. Heart: Mild cardiomegaly. No significant pericardial effusion. Thoracic Vessels: Pulmonary arteries demonstrate normal size. Mediastinum and Aimee: No enlarged lymph nodes. Esophagus: No wall thickening. No hiatal hernia. Upper Abdomen: Numerous scattered low-density lesions throughout the liver most likely cysts versus hemangiomas. IMPRESSION: 1. Mild cardiomegaly. 2. No acute abnormality within the chest. Exam is not optimized for assessment of coronary artery disease and if further evaluation of coronary arteries is indicated, gated coronary CTA is recommended. Dictated by: Davon Fowler M.D. on 03/25/2024 at 14:26 Approved by: Davon Fowler M.D. on 03/25/2024 at 14:37
[2024-03-25 10:10] LABS: Estimated Glomerular Filt Rate > 60 mL/min (>60)
== END ==
PROVIDERS: Radiology Diagnostic Radiology; PCP Family Medicine; Referring Provider Internal Medicine; Visit Provider Internal Medicine
DX: I48.91 Unspecified atrial fibrillation (principal); I51.7 Cardiomegaly; K76.9 Liver disease, unspecified
CPT/HCPCS: 36415; 71275; 82565; Q9967

== ENCOUNTER → 2024-04-02 12:13 | Outpatient (CLI) | payer MEDICARE, OTHER, SELFPAY ==
[2019-06-30 00:12] VITALS: BMI 19.2
[2024-04-02 17:58] LABS: HIV 1 & 2 Ab/Ag 4th Gen Combo NEGATIVE (NEGATIVE); Hep C Virus Ab w/Reflex Quant NEGATIVE s/c (NEGATIVE)
== END ==
PROVIDERS: PCP Family Medicine; Referring Provider Internal Medicine; Visit Provider Internal Medicine
DX: Z77.21 Contact with and (suspected) exposure to potentially hazardous body fluids (principal)
CPT/HCPCS: 36415; 86803; 87389

== ENCOUNTER 2024-08-30 11:37 | Emergency (ER) | payer MEDICARE, OTHER, SELFPAY ==
[2019-06-30 00:12] VITALS: BMI 19.2
[2024-08-30 11:43] VITALS: BP 130/69; PULSE 50; RESP 16; TEMP 36.3; O2SAT 100; BMI 19.0
--- NOTE | 2024-08-30 11:47 | DI.RAD.S_ITS ---
PROCEDURE: XR HUMERUS RT 2V INDICATIONS: pain mid humerus/lower deltoid area to palp. no known trauma TECHNIQUE: 2 views of the humerus were acquired. COMPARISON: None. FINDINGS: Bones: No fractures or dislocations. No suspicious bony lesions. Soft tissues: No suspicious soft tissue calcifications. IMPRESSION: No acute bony abnormality. Dictated by: Brett Long M.D. on 08/30/2024 at 12:18 Approved by: Brett Long M.D. on 08/30/2024 at 12:19
--- NOTE | 2024-08-30 13:05 | ED.UPPEXIN ---
HPI - Extremity Injury (Upper) <Pia Courtney PA-C - Last Filed: 08/30/24 15:33> General Chief Complaint: Extremity Injury, Upper Stated Complaint: sent by pcp, R arm pain Time Seen by Provider: 08/30/24 12:36 History of Present Illness HPI narrative: Ms. Islas is a very pleasant 78-year-old female with a past medical history of AFib on Eliquis who presents to the emergency department for right upper arm pain x 2-3 weeks. Patient denies any known injury to the arm however there was a bruise in this area a few weeks ago. States that the bruise has gone away but she continues to have pain on the right lateral aspect of the humerus. This pain is not constant and only comes occasionally when she abducts the right shoulder and only last for a few seconds. No numbness tingling or weakness of the right arm or decreased range of motion. She is very active and does yoga and lifts weights. Related Data Home Medications Medication Instructions Recorded Confirmed cholecalciferol (vitamin D3) 25 1,000 unit PO DAILY 01/19/18 02/21/24 mcg (1,000 unit) capsule dorzolamide 22.3 mg-timolol 6.8 1 drp EYE-BOTH 01/15/24 02/21/24 mg/mL eye drops Previous Rx's Medication Instructions Recorded frovatriptan 2.5 mg tablet See Rx Instructions .Route 05/16/22 .COMPLEX #30 tabs dicyclomine 10 mg capsule 10 mg PO TID PRN abdominal pain 02/07/24 #20 caps verapamil 240 mg 24 hr 240 mg PO DAILY #60 caps 03/20/24 capsule,extended release trazodone 150 mg tablet 225 mg (1.5 x 150 mg) PO QPM #135 07/29/24 tabs apixaban 5 mg tablet (Eliquis) 5 mg PO BID #60 tabs 08/16/24 atorvastatin 20 mg tablet 20 mg PO ONCE PM #90 tabs 08/16/24 Allergies Allergy/AdvReac Type Severity Reaction Status Date / Time No Known Drug Allergies Allergy Verified 02/21/24 10:35 Review of Systems <Pia Courtney PA-C - Last Filed: 08/30/24 15:33> Review of Systems ROS Unobtainable: All systems reviewed & are unremarkable except as noted in HPI and below Patient History <Pia Courtney PA-C - Last Filed: 08/30/24 15:33> Medical History Atrial fibrillation Heart palpitations Pre-syncope Fatigue Peripheral neuropathy Somatic dysfunction of rib region Somatic dysfunction of abdominal region Somatic dysfunction of upper extremity Somatic dysfunction of lower extremity Somatic dysfunction of pelvis region Somatic dysfunction of sacral region Somatic dysfunction of lumbar region Somatic dysfunction of cervical region Dog bite Meningioma Hayfever 1 para 1 Menopause (~1995) Abnormal Pap smear of cervix (2001) Chronic headaches (1996) History of eczema as a child Retinal degeneration (2010) Myopia (2010) Surgical History Severe nausea following anesthesia Status post tubal ligation (1994) Status post colonoscopy (2013) Family History Father Polycystic kidney Crohn's disease Grandfather Cancer Mother Diabetes mellitus, type 2 Dementia Pneumonia Grandmother No problems noted. Grandfather Lung cancer Grandmother Dementia Social History household members: spouse Smoking Status: Never smoker Smoking Status: Never smoker alcohol intake frequency: 0-2 drinks per day Exam <Pia Courtney PA-C - Last Filed: 08/30/24 15:33> Narrative Exam Narrative: GENERAL: 78 year old patient appears younger than stated age. Well-developed patient, in no acute distress. HEAD: Atraumatic. Normocephalic. RESPIRATORY: ?Nonlabored respirations. ?Speaking in clear, full sentences. EXTREMITIES: Tenderness to palpation of the soft tissues of the right mid lateral upper arm. There are no bruises rashes or overlying skin changes. The patient has full range of motion of the right wrist, elbow, shoulder. Negative empty can test bilaterally. She does have occasional reproduction of pain with abduction of right shoulder to 90?, but the pain is focal in the mid right humerus. She has strong radial pulses bilaterally, regular rate, brisk capillary refill, and strength and sensation are intact in the distribution of the median, ulnar, radial nerves bilaterally. NEURO: AOx3. ?Clear speech. ?Moves all 4 extremities appropriately. SKIN: No rash or erythema of visible areas Initial Vital Signs Initial Vital Signs: Vital Signs Temperature 97.3 F L 08/30/24 11:43 Pulse Rate 50 L 08/30/24 11:43 Respiratory Rate 16 08/30/24 11:43 Blood Pressure 130/69 08/30/24 11:43 Pulse Oximetry 100 08/30/24 11:43 Oxygen Delivery Method Room Air 08/30/24 11:43 <Alisha Diaz DO - Last Filed: 08/31/24 22:33> Initial Vital Signs Initial Vital Signs: Vital Signs Temperature 97.3 F L 08/30/24 11:43 Pulse Rate 50 L 08/30/24 11:43 Respiratory Rate 16 08/30/24 11:43 Blood Pressure 130/69 08/30/24 11:43 Pulse Oximetry 100 08/30/24 11:43 Oxygen Delivery Method Room Air 08/30/24 11:43 Course <KERRIE Soriano Last Filed: 08/30/24 15:33> Orders Ordered: ED Orders 08/30/24 11:47 XR humerus RT 2V Stat Vital Signs Vital signs: Vital Signs - 8 hr 08/30/24 11:43 08/30/24 13:15 Temperature 97.3 F L Pulse Rate 50 L 51 L Respiratory Rate 16 14 Blood Pressure 130/69 120/58 L Pulse Oximetry 100 98 Oxygen Delivery Method Room Air Room Air <DO Vinicio Baugh Last Filed: 08/31/24 22:33> Orders Ordered: ED Orders 08/30/24 11:47 XR humerus RT 2V Stat Vital Signs Vital signs: Vital Signs - 8 hr 08/30/24 11:43 08/30/24 13:15 Temperature 97.3 F L Pulse Rate 50 L 51 L Respiratory Rate 16 14 Blood Pressure 130/69 120/58 L Pulse Oximetry 100 98 Oxygen Delivery Method Room Air Room Air MDM - Extremity Injury (Upper) <KERRIE Soriano Last Filed: 08/30/24 15:33> Medical Records Attestation: I reviewed the patient's medical records. Imaging Data Right Humerus: Radiologist's Impression: PROCEDURE: XR HUMERUS RT 2V INDICATIONS: pain mid humerus/lower deltoid area to palp. no known trauma TECHNIQUE: 2 views of the humerus were acquired. COMPARISON: None. FINDINGS: Bones: No fractures or dislocations. No suspicious bony lesions. Soft tissues: No suspicious soft tissue calcifications. IMPRESSION: No acute bony abnormality. MDM Narrative Medical decision making narrative: 78-year-old female with a past medical history of AFib on Eliquis who presents to the emergency department for right upper arm pain x 2-3 weeks. Differential diagnosis includes but is not limited to fracture, sprain, strain, contusion, rotator cuff injury, etc. On exam the patient is in no acute distress, nontoxic appearing, vital signs appropriate. She has mild tenderness to palpation of the right mid lateral upper arm and exacerbation of pain with abduction of the right shoulder. Her arm is neurovascularly intact. There was no direct trauma however she did have a bruise overlying this area of pain previously that has since resolved. X-ray of the right humerus was obtained in triage and reveals no acute abnormalities. At this time I suspect the patient potentially had a soft tissue injury to this area however given history of prior rotator cuff injury could also be exacerbation of this. She still has wonderful strength and range of motion. Recommended supportive care at this time with Tylenol, alternating ice and heat therapy, and rest/avoiding heavy lifting with the right arm. She is quite active and I encouraged her to continue doing gentle exercise and to use pain as her limiting factor. She has a primary care doctor's appointment on Monday for further evaluation. Both her and her verbalized understanding of all information agreeable to the plan. ED return precautions discussed. She is stable for discharge home. Discharge Plan Departure Patient Disposition: Home Clinical Impression: Pain in lateral right upper extremity Instructions: DI for Arm Pain Activity Restrictions/Additional Instructions: Dear Janel, Thank you for coming to the emergency department. Today you were evaluated for right upper arm pain. We obtained an x-ray of your right arm that revealed no acute fractures or dislocations. At this time I am concerned that your pain is related to soft tissue injury. Please follow up with your primary care doctor as discussed, use Tylenol ice and heat therapy. Please follow up with your primary care doctor within the next 2-3 days for ER follow-up. (If you do not have a PCP you can call [phone]. ?to schedule an appointment with an [facility] Primary Care Provider) IF YOU DEVELOP ANY NEW OR WORSENING SYMPTOMS, RETURN TO THE ER! Please read the attached instructions, they highlight more specific treatments and interventions for you at home. Thank you for letting me participate in your care, Pia Courtney PA-C Prescriptions: No Action dorzolamide-timolol 22.3-6.8 mg/mL drops 1 drp EYE-BOTH Patient Comments: [NO ORIGINAL SIG] dicyclomine 10 mg capsule 10 mg PO TID PRN (Reason: abdominal pain) Qty: 20 0RF frovatriptan 2.5 mg tablet See Rx Instructions .ROUTE .COMPLEX Qty: 30 11RF Dose Instruction: TAKE 1 TAB BY MOUTH NEEDED AT ONSET OF MIGRAINE HEADACHE. MAY REPEAT IN 2 HOURS IF SYMPTOMS PERSISTS. MAXIUMUM 3 DAYS WEEKLY. Rx Instructions: TAKE 1 TAB BY MOUTH NEEDED AT ONSET OF MIGRAINE HEADACHE. MAY REPEAT IN 2 HOURS IF SYMPTOMS PERSISTS. MAXIUMUM 3 DAYS WEEKLY. verapamil 240 mg capsule,ext rel. pellets 24 hr 240 mg PO DAILY Qty: 60 2RF trazodone 150 mg tablet 225 mg PO QPM Qty: 135 0RF Rx Instructions: pt needs appt for further refills atorvastatin 20 mg tablet 20 mg PO ONCE PM Qty: 90 3RF Eliquis 5 mg tablet 5 mg PO BID Qty: 60 3RF cholecalciferol (vitamin D3) 1,000 unit capsule 1,000 unit PO DAILY Referrals: Blessing Nava MD [Primary Care Provider] - Stand Alone Forms: Patient Portal/API/Survey ED Sign-out <Alisha Diaz DO - Last Filed: 08/31/24 22:33> Cosign ED Attending Coscolleenature Attestation: I was available for consultation.
[2024-08-30 13:15] VITALS: BP 120/58; PULSE 51; RESP 14; O2SAT 98
== END 2024-08-30 13:17 | disposition home or self-care (01) ==
PROVIDERS: Emergency Provider Physician Assistant; PCP Family Medicine
DX: M79.601 Pain in right arm (principal); Z79.01 Long term (current) use of anticoagulants
CPT/HCPCS: 73060; 99281; 99283

== ENCOUNTER 2024-09-08 09:56 | Inpatient (IN) | payer MEDICARE, OTHER, SELFPAY ==
[2019-06-30 00:12] VITALS: BMI 19.2
[2024-09-08] VITALS (55 sets, daily range): BP systolic 92–140; BP diastolic 51–80; PULSE 63–158; RESP 12–36; TEMP 36.3–37.1; O2SAT 94–100; BMI 18.8
--- NOTE | 2024-09-08 10:07 | EKG_ITS ---
[place] [id number] [place] [place] [id number] Test Date: 2024-09-08 Pat Name: Blessing Islas Department: Room: Gender: Female Administrative Program Specialist: : [id number] Requested By: Order Number: [id number] Reading MD: Dewey Razo MD Measurements Intervals [place] Rate: 154 P: 18 OR: 126 QRS: 92 QRSD: 78 T: -80 QT: 312 QTc: 499 Interpretive Statements Critical Test Result: High HR Sinus tachycardia Rightward axis ST & T wave abnormality, consider inferolateral ischemia Electronically Signed On 09-08-2024 15:03:57 PDT by Dewey Razo MD
--- NOTE | 2024-09-08 10:09 | ED.ARRPALP ---
HPI - Arrhythmia/Palpitations General Chief Complaint: Arrhythmia/Palpitations Stated Complaint: HR elevated HB151; in and out AFIB. 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 This morning she also has been alerted by her apple watch that she has atrial fibrillation and fast rate. No syncope or presyncope. No significant shortness of breath. No chest discomfort. Some generalized weakness. She is interested in cardioversion. Last meal breakfast this morning. Related Data Home Medications Medication Instructions Recorded Confirmed cholecalciferol (vitamin D3) 25 1,000 unit PO DAILY 01/19/18 09/08/24 mcg (1,000 unit) capsule Previous Rx's Medication Instructions Recorded verapamil 240 mg 24 hr 240 mg PO DAILY #60 caps 03/20/24 capsule,extended release trazodone 150 mg tablet 225 mg (1.5 x 150 mg) PO QPM #135 07/29/24 tabs apixaban 5 mg tablet (Eliquis) 5 mg PO BID #60 tabs 08/16/24 atorvastatin 20 mg tablet 20 mg PO ONCE PM #90 tabs 08/16/24 Allergies Allergy/AdvReac Type Severity Reaction Status Date / Time No Known Drug Allergies Allergy Verified 09/02/24 10:36 Patient History Medical History Abnormal Pap smear of cervix (2001) Atrial fibrillation Chronic headaches (1996) Dog bite Fatigue 1 para 1 Hayfever Heart palpitations History of eczema as a child Meningioma Menopause (~1995) Myopia (2010) Peripheral neuropathy Pre-syncope Retinal degeneration (2010) Somatic dysfunction of abdominal region Somatic dysfunction of cervical region Somatic dysfunction of lower extremity Somatic dysfunction of lumbar region Somatic dysfunction of pelvis region Somatic dysfunction of rib region Somatic dysfunction of sacral region Somatic dysfunction of upper extremity Surgical History Severe nausea following anesthesia Status post colonoscopy (2013) Status post tubal ligation (1994) Family History Father Polycystic kidney Crohn's disease Grandfather Cancer Mother Diabetes mellitus, type 2 Dementia Pneumonia Grandmother No problems noted. Grandfather Lung cancer Grandmother Dementia Social History household members: spouse Smoking Status: Never smoker alcohol intake: never Smoking Status: Never smoker alcohol intake frequency: 0-2 drinks per day Exam Narrative Exam Narrative: GENERAL: Well-developed patient, in mild distress. HEAD: Atraumatic. Normocephalic. EYES: Pupils equal round and reactive. Extraocular motions intact. No scleral icterus. No injection or drainage. ENT: Nose without bleeding, purulent drainage. Throat without erythema, tonsillar hypertrophy or exudate. Airway patent. NECK: Trachea midline. Non tender CARDIOVASCULAR: Rapid rate, difficult to tell irregularities of rhythm, gallops, or rubs. RESPIRATORY: Clear to auscultation. Breath sounds equal bilaterally. No wheezes, rales, or rhonchi. GASTROINTESTINAL: Abdomen soft, non-tender, nondistended. EXTREMITIES: No edema or joint tenderness. BACK: Nontender without deformity or crepitance. No flank tenderness. NEURO: AOx3. Motor functions grossly nonfocal SKIN: No rash or erythema of visible areas Initial Vital Signs Initial Vital Signs: Vital Signs Pulse Rate 157 H 09/08/24 10:03 Blood Pressure 122/65 09/08/24 10:03 Pulse Oximetry 99 09/08/24 10:03 Procedures Cardioversion Time of Cardioversion: 11:10 Consent Signed: Yes Indication: Atrial fibrillation with rapid ventricular response, on chronic anticoagulation Eliquis, requests for cardioversion Stability: Stable Number of attempts (shocks): 3 Joules used: 150 and 200 Cardiac rhythm post-cardioversion: Synchronized biphasic cardioversion 150 joules, then 200 joules, then 200J Additional Comments: Patient had transient reduced heart rate, atrial flutter waves evident with response 100-120 range briefly, then resumed narrow complex fast rate 150. Failed cardioversion attempts. Procedural Sedation Time of procedure: 11:09 Indication: cardioversion ASA Class: I Mallampati Airway Classification: Class I Time of Last PO Intake: 08:00 IV Propofol dose (mg): 75 ED Sedation Level: Moderate (Concious) Complications: none Additional Comments: Tolerated sedation well with 50 mg initial dose, no response to initial shocks, was waking up, additional 25 mg given, tolerated dish additional cardioversion shock. Postprocedure returned to baseline mental status. Course Orders Ordered: ED Orders 09/08/24 12:20 Troponin I Stat Acetaminophen (Acetaminophen 325 Mg Tablet) 650 mg PO Q6H PRN PRN Reason: Fever/Mild Pain (1-3) Apixaban (Apixaban 5 Mg Tablet) 5 mg PO BID [facility] Last Admin: 09/08/24 20:20 Dose: 5 mg Documented By: Atorvastatin Calcium (Atorvastatin 20 Mg Tablet) 20 mg PO BEDTIME [facility] Last Admin: 09/08/24 20:21 Dose: 20 mg Documented By: Dorzolamide/Timolol (Dorzolamide/Timolol Ophth 10 Ml) 1 drops EYE-BOTH BID [facility] Last Admin: 09/08/24 20:21 Dose: 1 drops Documented By: Diltiazem HCl 125 mg/ Sodium (Chloride) 125 mls @ 5 mls/hr IV TITRATE [facility]; Protocol Last Titration: 09/08/24 18:33 Dose: 7.5 mg/hr, 7.5 mls/hr Documented By: Titration: 09/08/24 14:32 Dose: 10 mg/hr, 10 mls/hr Documented By: Admin: 09/08/24 11:15 Dose: 5 mg/hr, 5 mls/hr Documented By: SENIA Naloxone HCl (Naloxone 0.4 Mg/Ml Vial) 0.2 mg IV Q2MIN PRN PRN Reason: Opiate Reversal Trazodone HCl (Trazodone 50 Mg Tablet) 225 mg PO BEDTIME [facility] Last Admin: 09/08/24 20:20 Dose: 225 mg Documented By: Discontinued Medications Diltiazem HCl (Diltiazem 25 Mg/5 Ml Sdv) 20 mg IV NOW ONE Stop: 09/08/24 10:40 Last Admin: 09/08/24 11:09 Dose: Not Given Documented By: SENIA Diltiazem HCl (Diltiazem 25 Mg/5 Ml Sdv) 10 mg IV NOW ONE Stop: 09/08/24 10:41 Last Admin: 09/08/24 11:14 Dose: 10 mg Documented By: SENIA Propofol (Propofol 200 Mg/20 Ml Vial) 200 mg IV NOW ONE Stop: 09/08/24 10:18 Last Admin: 09/08/24 11:09 Dose: Not Given Documented By: SENIA Propofol (Propofol 200 Mg/20 Ml Vial) 25 mg IV NOW ONE Stop: 09/08/24 10:36 Last Admin: 09/08/24 10:35 Dose: 25 mg Documented By: SENIA Propofol (Propofol 200 Mg/20 Ml Vial) 50 mg 1 mg/kg (50 mg) IV NOW ONE Stop: 09/08/24 10:32 Last Admin: 09/08/24 10:31 Dose: 50 mg Documented By: SENIA Vital Signs Vital signs: Vital Signs - 8 hr 09/08/24 10:03 09/08/24 10:03 09/08/24 10:05 Temperature 98.7 F Pulse Rate 157 H 158 H Respiratory Rate 16 Blood Pressure 122/65 122/65 Pulse Oximetry 99 99 Oxygen Delivery Method Room Air 09/08/24 10:15 09/08/24 10:15 09/08/24 10:22 Temperature Pulse Rate 157 H Respiratory Rate 12 Blood Pressure 100/73 116/73 Pulse Oximetry 97 Oxygen Delivery Method 09/08/24 10:22 09/08/24 10:25 09/08/24 10:25 Temperature Pulse Rate 138 H 145 H Respiratory Rate 13 16 Blood Pressure 110/59 L 106/64 Pulse Oximetry 98 100 Oxygen Delivery Method 09/08/24 10:25 09/08/24 10:29 09/08/24 10:29 Temperature Pulse Rate 144 H 116 H Respiratory Rate 12 22 Blood Pressure 110/59 L Pulse Oximetry 98 100 Oxygen Delivery Method 09/08/24 10:30 09/08/24 10:31 09/08/24 10:31 Temperature Pulse Rate 129 H 108 H Respiratory Rate 18 Blood Pressure 122/57 L Pulse Oximetry 98 100 Oxygen Delivery Method 09/08/24 10:35 09/08/24 10:35 09/08/24 10:40 Temperature Pulse Rate 111 H Respiratory Rate 18 Blood Pressure 124/67 111/77 Pulse Oximetry 98 Oxygen Delivery Method 09/08/24 10:40 09/08/24 10:45 09/08/24 10:45 Temperature Pulse Rate 146 H 149 H Respiratory Rate 17 22 Blood Pressure 98/57 L Pulse Oximetry 94 96 Oxygen Delivery Method 09/08/24 10:50 09/08/24 10:50 09/08/24 10:55 Temperature Pulse Rate 151 H Respiratory Rate 14 Blood Pressure 92/55 L 121/80 Pulse Oximetry 96 Oxygen Delivery Method 09/08/24 10:55 09/08/24 11:00 09/08/24 11:00 Temperature Pulse Rate 136 H 150 H Respiratory Rate 14 18 Blood Pressure 112/62 Pulse Oximetry 94 98 Oxygen Delivery Method 09/08/24 11:14 09/08/24 11:15 Temperature Pulse Rate 153 H 138 H Respiratory Rate Blood Pressure 106/60 105/56 L Pulse Oximetry Oxygen Delivery Method MDM - Arrhythmia/Palpitations Lab Data Attestation: I reviewed the patient's lab results. Lab results narrative: White blood cell count 7400, hemoglobin 16.3, platelets 296,000. Glucose 181. BUN 29 with creatinine 0.83. Sodium 138, potassium 3.8, serum CO2 26. Liver functions normal. Troponin negative. BNP 1750. 09/08/24 10:08 09/08/24 10:08 Labs: Lab Results 09/08/24 09/08/24 Range/Units 10:08 12:20 WBC 7.4 (4.5-11.0) X10^3/uL RBC 5.03 (4.0-5.2) X10^6/uL Hgb 16.3 H (12.0-16.0) g/dL Hct 48.2 H (36-46) % MCV 95.7 (80-100) fL MCH 32.4 (26-34) PG MCHC 33.9 (30-36) % RDW 12.9 (11.6-14.8) % Plt Count 296 (150-400) X10^3/uL Neut % (Auto) 81.6 H (50-75) % Lymph % (Auto) 13.1 L (25-40) % Stark % (Auto) 4.6 (3-14) % Eos % (Auto) 0.3 L (2-4) % Baso % (Auto) 0.4 (0-2) % Neut # (Auto) 6000 (7107-5103) /uL Lymph # (Auto) 1000 L (7508-6055) /uL Stark # (Auto) 300 (0-900) /uL Eos # (Auto) 0 (0-450) /uL Baso # (Auto) 0 (0-100) /uL PT 14.5 H (9.4-12.5) SECONDS INR 1.3 (0.9-1.3) APTT 37 H (25.1-36.5) SECONDS Sodium 138 (137-145) mmol/L Potassium 3.8 (3.4-5.1) mmol/L Chloride 102 (98-107) mmol/L Carbon Dioxide 26 (22-32) mmol/L BUN 29 H (7-17) mg/dL Creatinine 0.83 (0.52-1.04) mg/dL Estimated GFR > 60 (>60) mL/min BUN/Creatinine Ratio 34.9 H (6-22) Glucose 181 H (80-110) mg/dL Calcium 9.5 (8.4-10.2) mg/dL Magnesium 2.0 (1.6-2.3) mg/dL Total Bilirubin 0.8 (0.2-1.3) mg/dL AST 33 (14-36) IU/L ALT 30 (<35) IU/L Alkaline Phosphatase 53 (38-126) U/L Total Creatine Kinase 94 (30-135) U/L Troponin I < 0.012 < 0.012 (0.01-0.034) ng/mL NT-Pro-B Natriuret Pep 1750 H (<450) pg/mL Total Protein 7.9 (6.3-8.2) g/dL Albumin 4.9 (3.5-5.0) g/dL Globulin 3.0 (1.7-4.1) g/dL Albumin/Globulin Ratio 1.6 (1.0-2.8) Lipase 119 (23-300) U/L Point of Care Testing Test Results Not applicable ECG Data Attestation: I personally reviewed and interpreted this ECG as follows: Interpretation: 1007, Narrow complex tachycardia with variable RRR suspicious for atrial fibrillation, known atrial fibrillation, ventricular response rate 154, QRS 78, QTC 499. 1047, atrial flutter with 2-1 AV conduction, ventricular response rate 151, some ST segment depression lateral leads. QRS 80, QTC 358. 1212, atrial flutter with variable AV block with PVCs and apparently conducted complexes, ventricular response rate 83. Nonspecific ST segment changes. MDM Narrative Medical decision making narrative: 78-year-old female with history of atrial fibrillation on Eliquis chronic anticoagulation, had elective cardioversion 3 months ago that was successful, with palpitations and fast heart rate sensation this morning, requesting cardioversion. Denies chest discomfort. Denies syncope or presyncopal symptoms. Atrial fibrillation suspected on monitor with narrow complex tachycardia with variable RR interval, rate 140-160. Patient consented. Had cardioversion attempt after propofol with 150/200/200 joules biphasic, transient slowing with flutter waves noted but no conversion. Post attempts resumption of atrial fibrillation with rapid ventricular response in similar range 140 to 160. Verapamil noted on medication list. IV diltiazem 10 mg dose ordered, with diltiazem infusion. 1245, on diltiazem infusion after bolus patient has slowing of ventricular response rate, flutter waves apparent, atrial flutter with rapid ventricular response. Repeat EKG shows atrial flutter with variable block, ventricular response rate 83 on current infusion. Consider admission for further rate control. We will contact hospitalist. 1250, case discussed with hospitalist Dr. Genao who accepts patient for admission to inpatient service Critical Care Time Critical Care Time Critical Care Time: Yes Total Critical Care Time: 35 Attestation: The high probability of a clinically significant, sudden or life threatening deterioration of the [cardiopulmonary, cerebrovascular] system(s) required my full and direct attention, intervention and personal management. The aggregate critical care time was [35] minutes. This time is in addition to time spent performing reported procedures but includes the following: [x] Data Review and interpretation [x] Patient assessment and monitoring of vital signs [x] Documentation [x] Medication orders and management Discharge Plan Departure Patient Disposition: Admitted As Inpatient Clinical Impression: Atrial flutter with rapid ventricular response, Heart palpitations Admit Date/Time: 09/08/24 12:52 Admit Provider: Dinesh Genao V
[2024-09-08] MEDS: propofoL 200 MG/20 ML VIAL 50 MG IV (10:31)
[2024-09-08] MEDS: propofoL 200 MG/20 ML VIAL 25 MG IV (10:35)
--- NOTE | 2024-09-08 10:44 | DI.RAD.S_ITS ---
PROCEDURE: XR CHEST 1V INDICATIONS: chest pain TECHNIQUE: One view of the chest was acquired. COMPARISON: [facility], CT, CT ANGIO CHEST, 03/25/2024, 10:58. [facility], CR, CHEST 2 VIEW, 04/29/2016, 12:10. FINDINGS: Surgical changes and devices: None. Lungs and pleura: Lungs are clear. No pleural effusions or pneumothorax. Mediastinum: Mediastinal contours appear normal. Heart size is normal. Bones and chest wall: No suspicious bony lesions. Overlying soft tissues appear unremarkable. IMPRESSION: No acute cardiothoracic process. Dictated by: Yahir Hui M.D. on 09/08/2024 at 10:33 Approved by: Yahir Hui M.D. on 09/08/2024 at 10:34
--- NOTE | 2024-09-08 10:47 | EKG_ITS ---
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
[2024-09-08 10:51] LABS: INR 1.3 (0.9-1.3); Prothrombin Time 14.5 SECONDS (9.4-12.5)
[2024-09-08 10:53] LABS: Add Manual Diff / Slide Review NO; Basophils Absolute Auto 0 /uL (0-100); Basophils Percent Auto 0.4 % (0-2); Eosinophils Absolute Auto 0 /uL (0-450); Eosinophils Percent Auto 0.3 % (2-4); Hematocrit 48.2 % (36-46); Hemoglobin 16.3 g/dL (12.0-16.0); Lymphocytes Absolute Auto 1000 /uL (1100-4500); Lymphocytes Percent Auto 13.1 % (25-40); Mean Corpuscular HGB Conc 33.9 % (30-36); Mean Corpuscular Hemoglobin 32.4 PG (26-34); Mean Corpuscular Volume 95.7 fL (80-100); Monocytes Absolute Auto 300 /uL (0-900); Monocytes Percent Auto 4.6 % (3-14); Neutrophils Absolute Auto 6000 /uL (1500-7000); Neutrophils Percent Auto 81.6 % (50-75); Platelet Count 296 X10^3/uL (150-400); Red Blood Cell Count 5.03 X10^6/uL (4.0-5.2); Red Cell Distribution Width 12.9 % (11.6-14.8); White Blood Cell Count 7.4 X10^3/uL (4.5-11.0)
[2024-09-08 10:54] LABS: PTT Partial Thromboplastin Tim 37 SECONDS (25.1-36.5)
[2024-09-08 10:56] LABS: Alanine Aminotransferase 30 IU/L (<35); Albumin 4.9 g/dL (3.5-5.0); Albumin Globulin Ratio 1.6 (1.0-2.8); Alkaline Phosphatase 53 U/L (38-126); Aspartate Aminotransferase 33 IU/L (14-36); BUN Creatinine Ratio 34.9 (6-22); Bilirubin Total 0.8 mg/dL (0.2-1.3); Blood Urea Nitrogen 29 mg/dL (7-17); Calcium 9.5 mg/dL (8.4-10.2); Carbon Dioxide 26 mmol/L (22-32); Chloride 102 mmol/L (98-107); Creatine Kinase 94 U/L (30-135); Estimated Glomerular Filt Rate > 60 mL/min (>60); Glucose 181 mg/dL (80-110); HEMOLYSIS < 15 (0-50); Lipase 119 U/L (23-300); Potassium 3.8 mmol/L (3.4-5.1); Sodium 138 mmol/L (137-145); Total Protein 7.9 g/dL (6.3-8.2)
[2024-09-08 11:07] LABS: NT-proBNP (BNP-Adult 18+) 1750 pg/mL (<450); Troponin I < 0.012 ng/mL (0.01-0.034)
[2024-09-08] MEDS: dilTIAZem 25 MG/5 ML SDV 10 MG IV (11:14)
[2024-09-08] MEDS: dilTIAZem 125 MG in SODIUM CHLORIDE 0.9% 100 ML IV (11:15)
--- NOTE | 2024-09-08 12:12 | EKG_ITS ---
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
--- NOTE | 2024-09-08 12:52 | P.HP_ITS ---
History of Present Illness History of Present Illness Date Patient Seen: 09/08/24 Chief complaint: HR elevated HB151; in and out AFIB. Narrative: 78-year-old woman under the primary care of Dr. Blessing Nava developed palpitations, lightheadedness and dizziness today prompting presentation to the emergency department where she was found to be in atrial fibrillation with rapid ventricular response in the 130s to 150s beats per minute arranged. She underwent a synchronized cardioversion, unfortunately remained in a rapid rhythm consistent with atrial flutter, and was placed on a diltiazem infusion with improved rate control into the 80s beat per minute range. She is admitted for further management and evaluation. She has been followed by Dr. Satnam Charles of Cardiac electrophysiology. She had a normal cardiac MRI on 05/21/2024 and on 08/20/2024 consultation the plan at that time was to manage medically but consider PVI versus TPN/AVN ablation for symptomatic recurrence. [facility] Medical History Abnormal Pap smear of cervix (2001) Atrial fibrillation Chronic headaches (1996) Dog bite Fatigue 1 para 1 Hayfever Heart palpitations History of eczema as a child Meningioma Menopause (~1995) Myopia (2010) Peripheral neuropathy Pre-syncope Retinal degeneration (2010) Somatic dysfunction of abdominal region Somatic dysfunction of cervical region Somatic dysfunction of lower extremity Somatic dysfunction of lumbar region Somatic dysfunction of pelvis region Somatic dysfunction of rib region Somatic dysfunction of sacral region Somatic dysfunction of upper extremity Surgical History Severe nausea following anesthesia Status post colonoscopy (2013) Status post tubal ligation (1994) Family History Father Polycystic kidney Crohn's disease Grandfather Cancer Mother Diabetes mellitus, type 2 Dementia Pneumonia Grandmother No problems noted. Grandfather Lung cancer Grandmother Dementia Social History household members: spouse Smoking Status: Never smoker Meds Home Medications and Allergies Home Medications Medication Instructions Recorded Confirmed Type cholecalciferol (vitamin D3) 25 1,000 unit PO DAILY 01/19/18 09/02/24 History mcg (1,000 unit) capsule frovatriptan 2.5 mg tablet See Rx Instructions .Route 05/16/22 09/02/24 Rx .COMPLEX #30 tabs dorzolamide 22.3 mg-timolol 6.8 1 drp EYE-BOTH 01/15/24 09/02/24 History mg/mL eye drops verapamil 240 mg 24 hr 240 mg PO DAILY #60 caps 03/20/24 09/02/24 Rx capsule,extended release trazodone 150 mg tablet 225 mg (1.5 x 150 mg) PO QPM #135 07/29/24 09/02/24 Rx tabs apixaban 5 mg tablet (Eliquis) 5 mg PO BID #60 tabs 08/16/24 09/02/24 Rx atorvastatin 20 mg tablet 20 mg PO ONCE PM #90 tabs 08/16/24 09/02/24 Rx Allergies Allergy/AdvReac Type Severity Reaction Status Date / Time No Known Drug Allergies Allergy Verified 09/02/24 10:36 Review of Systems Review of Systems ROS: Yes All systems reviewed with the patient and are negative except as otherwise documented Exam Vital Signs (past 8 hours): - 09/08/24 10:03 09/08/24 10:03 09/08/24 10:05 Temperature 98.7 F Pulse Rate 157 H 158 H Respiratory Rate 16 Blood Pressure 122/65 122/65 Pulse Oximetry 99 99 Oxygen Delivery Method Room Air 09/08/24 10:15 09/08/24 10:15 09/08/24 10:22 Temperature Pulse Rate 157 H Respiratory Rate 12 Blood Pressure 100/73 116/73 Pulse Oximetry 97 Oxygen Delivery Method 09/08/24 10:22 09/08/24 10:25 09/08/24 10:25 Temperature Pulse Rate 138 H 145 H Respiratory Rate 13 16 Blood Pressure 110/59 L 106/64 Pulse Oximetry 98 100 Oxygen Delivery Method 09/08/24 10:25 09/08/24 10:29 09/08/24 10:29 Temperature Pulse Rate 144 H 116 H Respiratory Rate 12 22 Blood Pressure 110/59 L Pulse Oximetry 98 100 Oxygen Delivery Method 09/08/24 10:30 09/08/24 10:31 09/08/24 10:31 Temperature Pulse Rate 129 H 108 H Respiratory Rate 18 Blood Pressure 122/57 L Pulse Oximetry 98 100 Oxygen Delivery Method 09/08/24 10:35 09/08/24 10:35 09/08/24 10:40 Temperature Pulse Rate 111 H Respiratory Rate 18 Blood Pressure 124/67 111/77 Pulse Oximetry 98 Oxygen Delivery Method 09/08/24 10:40 09/08/24 10:45 09/08/24 10:45 Temperature Pulse Rate 146 H 149 H Respiratory Rate 17 22 Blood Pressure 98/57 L Pulse Oximetry 94 96 Oxygen Delivery Method 09/08/24 10:50 09/08/24 10:50 09/08/24 10:55 Temperature Pulse Rate 151 H Respiratory Rate 14 Blood Pressure 92/55 L 121/80 Pulse Oximetry 96 Oxygen Delivery Method 09/08/24 10:55 09/08/24 11:00 09/08/24 11:00 Temperature Pulse Rate 136 H 150 H Respiratory Rate 14 18 Blood Pressure 112/62 Pulse Oximetry 94 98 Oxygen Delivery Method 09/08/24 11:14 09/08/24 11:15 Temperature Pulse Rate 153 H 138 H Respiratory Rate Blood Pressure 106/60 105/56 L Pulse Oximetry Oxygen Delivery Method Oxygen Delivery Method Room Air Narrative Exam Narrative: GENERAL: This is a well-nourished, well-developed patient, in no apparent distress. HEAD: Atraumatic. Normocephalic. No temporal or scalp tenderness. EYES: Pupils equal round and reactive. Extraocular motions intact. No scleral icterus. No injection or drainage. ENT: Mucous membranes pink and moist. NECK: Trachea midline. No JVD, bruits or lymphadenopathy. Supple, nontender, no meningeal signs. CARDIOVASCULAR: Irregularly irregular tachycardic rhythm without murmurs, gallops, or rubs. RESPIRATORY: Clear to auscultation. GASTROINTESTINAL: Abdomen soft, non-tender, nondistended. EXTREMITIES: Trace ankle edema, compression hose in place. BACK: Nontender without deformity or crepitance. No flank tenderness. NEUROLOGIC: Alert, oriented, speech fluent, full upper and lower motor strength, no focal deficits evident. DERMATOLOGIC: No rashes or skin lesions. Objective ECG Impression: #1 (10:07): Atrial flutter with 2:1 conduction at 154bpm, rightward axis, 1mm ST depression inferolateral leads #2 (10:47): Atrial flutter with 2:1 conduction at 151bpm, rightward axis, 1-2mm ST depression inferolateral leads #3 (12:12): Atrial flutter with variable AV block at 83bpm, rightward axis, nonspecific T wave abnormality Imaging Chest x-ray: Radiologist's impression: No acute cardiothoracic process. Echocardiogram 02/14/2024:: Radiologist's impression: The patient was in atrial flutter during the exam. The heart rate ranged between 77-90 bpm during the study. The ejection fraction is estimated to be 55-60%. The left atrium is mildly dilated. The right ventricle is normal in size and function. The right atrium is moderately dilated. There is mild mitral regurgitation. There is mild tricuspid regurgitation. The right ventricular systolic pressure is estimated to be at least 30 mmHg based on an estimated right atrial pressure of 3 mm Hg. There is a trivial pericardial effusion noted. Labs 09/08/24 10:08 09/08/24 10:08 Labs: Laboratory Results - last 24 hr 09/08/24 10:08 WBC 7.4 RBC 5.03 Hgb 16.3 H Hct 48.2 H MCV 95.7 MCH 32.4 MCHC 33.9 RDW 12.9 Plt Count 296 Neut % (Auto) 81.6 H Lymph % (Auto) 13.1 L [place] % (Auto) 4.6 Eos % (Auto) 0.3 L Baso % (Auto) 0.4 Neut # (Auto) 6000 Lymph # (Auto) 1000 L [place] # (Auto) 300 Eos # (Auto) 0 Baso # (Auto) 0 PT 14.5 H INR 1.3 APTT 37 H Sodium 138 Potassium 3.8 Chloride 102 Carbon Dioxide 26 BUN 29 H Creatinine 0.83 Estimated GFR > 60 BUN/Creatinine Ratio 34.9 H Glucose 181 H Calcium 9.5 Magnesium 2.0 Total Bilirubin 0.8 AST 33 ALT 30 Alkaline Phosphatase 53 Total Creatine Kinase 94 Troponin I < 0.012 NT-Pro-B Natriuret Pep 1750 H Total Protein 7.9 Albumin 4.9 Globulin 3.0 Albumin/Globulin Ratio 1.6 Lipase 119 Assessment & Plan Assessment & Plan narrative: 1. Atrial fibrillation/flutter with rapid ventricular response. 2. History of TIA/vertebrobasilar artery insufficiency. 3. Hyperlipidemia. Plan: -admit to telemetry inpatient ICU for diltiazem infusion, rate control -monitor serial cardiac enzymes -coordinate rate control strategy in the outpatient follow-up -continue apixaban anticoagulation -continue statin DVT prophylaxis: On apixaban Code status: Full code. Reviewed on admission. Her Won is her surrogate decision maker. Quality MIPS - Admit I confirm the patient?s Advance Care Plan is present, Code status is documented, Surrogate decision maker is in patient?s record [If Yes, STOP here]: Yes MIPS - Meds 'Current medications' to include all prescriptions, [id number] products, herbals, cannabis/cannabidiol products, and vitamin/mineral/dietary (nutritional) supplements. I have utilized all available resources to obtain, update, or review the patient?s current medications. [If Yes, STOP here]: Yes PROFEE Horticulture Supervisor Document charge(s): No Charge Codes Initial inpatient/observation care: [id number]
--- NOTE | 2024-09-08 12:54 | PC.NURSE ---
Pt reports sometimes yesterday evening she thinks she went into afib and was awoken throughout the night by her apple watch that her heart rate was high. Pt denies symptoms. Possible ablation in future. History of being cardioverted x1 in the past. Pt thinks she was only shocked once in the past. Respirations regular and unlabored. No edema noted. aflutter on monitor.
[2024-09-08 12:57] LABS: Troponin I < 0.012 ng/mL (0.01-0.034)
[2024-09-08 15:34] LABS: MRSA (Nasal) PCR NOT DETECTED (Not Detect)
[2024-09-08] MEDS: APIXABAN 5 MG TABLET PO (20:20)
[2024-09-08] MEDS: TRAZODONE 50 MG TABLET 225 MG PO (20:20)
[2024-09-08] MEDS: DORZOLAMIDE/TIMOLOL OPHTH 10 ML 1 DROPS EYE-BOTH (20:21)
[2024-09-08] MEDS: ATORVASTATIN 20 MG TABLET PO (20:21)
[2024-09-09] VITALS (10 sets, daily range): BP systolic 106–126; BP diastolic 55–85; PULSE 68–96; RESP 12–20; TEMP 36.3–36.8; O2SAT 94–98
[2024-09-09 05:34] LABS: Add Manual Diff / Slide Review NO; Basophils Absolute Auto 0 /uL (0-100); Basophils Percent Auto 0.3 % (0-2); Eosinophils Absolute Auto 100 /uL (0-450); Eosinophils Percent Auto 0.9 % (2-4); Hematocrit 43.2 % (36-46); Hemoglobin 14.7 g/dL (12.0-16.0); Lymphocytes Absolute Auto 1300 /uL (1100-4500); Mean Corpuscular HGB Conc 33.9 % (30-36); Mean Corpuscular Hemoglobin 32.3 PG (26-34); Mean Corpuscular Volume 95.3 fL (80-100); Monocytes Absolute Auto 600 /uL (0-900); Monocytes Percent Auto 8.8 % (3-14); Neutrophils Absolute Auto 5100 /uL (1500-7000); Platelet Count 245 X10^3/uL (150-400); Red Blood Cell Count 4.53 X10^6/uL (4.0-5.2)
[2024-09-09 05:49] LABS: Alanine Aminotransferase 25 IU/L (<35); Albumin 3.7 g/dL (3.5-5.0); Albumin Globulin Ratio 1.5 (1.0-2.8); Alkaline Phosphatase 46 U/L (38-126); Aspartate Aminotransferase 42 IU/L (14-36); BUN Creatinine Ratio 35.7 (6-22); Bilirubin Total 0.6 mg/dL (0.2-1.3); Blood Urea Nitrogen 25 mg/dL (7-17); Calcium 8.6 mg/dL (8.4-10.2); Carbon Dioxide 22 mmol/L (22-32); Chloride 108 mmol/L (98-107); Estimated Glomerular Filt Rate > 60 mL/min (>60); Globulin 2.5 g/dL (1.7-4.1); Glucose 96 mg/dL (80-110); HEMOLYSIS < 15 (0-50); Potassium 3.7 mmol/L (3.4-5.1); Sodium 137 mmol/L (137-145); Total Protein 6.2 g/dL (6.3-8.2)
[2024-09-09] MEDS: dilTIAZem 125 MG in SODIUM CHLORIDE 0.9% 100 ML IV (06:17)
[2024-09-09] MEDS: DORZOLAMIDE/TIMOLOL OPHTH 10 ML 1 DROPS EYE-BOTH (08:18)
[2024-09-09] MEDS: dilTIAZem CD 120 MG CAP PO (08:18)
[2024-09-09] MEDS: APIXABAN 5 MG TABLET PO (08:18)
--- NOTE | 2024-09-09 11:59 | CM.DANOTE ---
DCP Assessment note pt is a 78yo F admitted with afib with RVR. PCP Elijah Payer Medicare and [place] LINUX SYSTEMS ENGINEER reviewed EMR. Per provider in morning rounds, pt anticipate dc later today. Per RN, pt stable off drip. no obvious CM needs. LINUX SYSTEMS ENGINEER met with pt and spouse in room, introduced self and role. confirmed lives indep with spouse in [place]. no DME/drives. asked that we update PCP team. pt/spouse denies any DCP needs or questions. eager to dc home to dog. LINUX SYSTEMS ENGINEER messaged TCM team with updates. P: anticpate dc later today with OP cardiology and PCP f/u recommended. no CM needs identified at this time, will continue to follow as needed VANIA Hilliard Discharge Planning/Care Management CM Discharge Assessment Start: 09/09/24 11:58 Freq: Status: Active Protocol: Document 09/09/24 11:58 SL (Rec: 09/09/24 11:59 SL Desktop) Discharge Planning Assessment Assigned Vice President Compliance VANIA Cardona DPOA/Assigned Designee Name Won, spouse Contact Information [phone] Advance Directives? Yes Advance Directives on File No History Provided By Patient Prior Living Arrangements House Household Members spouse Type of transporation used prior to Drives own vehicle admit Independent with ADL's Yes Is patient alert and oriented? Yes Discharge Plan Home Referrals Initiated None needed Whiteboard Updated in Patient Room with Yes name and ext. # of Vice President Compliance Review Status In Process Please Provide Date Initial DC 09/09/24 Assessment Was Performed Next Review Type Continued Stay Review
--- NOTE | 2024-09-09 13:27 | PM.DS.1 ---
History of Present Illness History of Present Illness Chief complaint: HR elevated HB151; in and out AFIB. Narrative: From H&P: 78-year-old woman under the primary care of Dr. Blessing Nava developed palpitations, lightheadedness and dizziness today prompting presentation to the emergency department where she was found to be in atrial fibrillation with rapid ventricular response in the 130s to 150s beats per minute arranged. She underwent a synchronized cardioversion, unfortunately remained in a rapid rhythm consistent with atrial flutter, and was placed on a diltiazem infusion with improved rate control into the 80s beat per minute range. She is admitted for further management and evaluation. She has been followed by Dr. Satnam Charles of Cardiac electrophysiology. She had a normal cardiac MRI on 05/21/2024 and on 08/20/2024 consultation the plan at that time was to manage medically but consider PVI versus TPN/AVN ablation for symptomatic recurrence. Discharge Providers Provider Date of admission: 09/08/24 12:52 Discharge Date: 09/09/24 Primary care physician: Blessing Nava MD Consults: None. Discharge provider: Davon Boland MD Summary Hospital Course Discharge Diagnosis: 1. Atrial fibrillation/flutter with rapid ventricular response. Present on admission and improved. 2. History of TIA/vertebrobasilar artery insufficiency. Stable. 3. Hyperlipidemia. Stable. Hospital Course: She was admitted for atrial fibrillation with rapid response and initially rate controlled with a diltiazem drip. She was then given diltiazem CD 120 mg p.o. in the morning of September 09 and came off the drip with good rate control. She was felt to be stable for discharge and we will stop her nifedipine and start iltiazem CD 120 mg p.o. daily. She was anticoagulated with chronic Eliquis. Status at Discharge Cognitive/behavioral status at discharge: at baseline, oriented Functional status at discharge: independent ambulation Overall status at discharge: patient is back to baseline Time Spent with Patient Time spent: Greater than 30 minutes Exam Vital Signs (past 8 hours): - 09/09/24 06:00 09/09/24 07:00 09/09/24 08:00 Temperature 98.2 F Pulse Rate 90 88 96 H Respiratory Rate 15 16 15 Blood Pressure 120/64 114/64 126/85 Pulse Oximetry 96 98 98 Oxygen Flow Rate 0 0 0 09/09/24 13:00 Temperature Pulse Rate 89 Respiratory Rate 20 Blood Pressure 122/59 L Pulse Oximetry Oxygen Flow Rate Oxygen Delivery Method Room Air Oxygen Flow Rate 0 Narrative Exam Narrative: NAD, alert and oriented. Fluent speech. Lungs are clear, normal rate and effort. Heart is irregular, no murmur gallop or rub. Abdomen is soft, non distended. Extremities are free of edema. Objective ECG Impression: #1 (10:07): Atrial flutter with 2:1 conduction at 154bpm, rightward axis, 1mm ST depression inferolateral leads #2 (10:47): Atrial flutter with 2:1 conduction at 151bpm, rightward axis, 1-2mm ST depression inferolateral leads #3 (12:12): Atrial flutter with variable AV block at 83bpm, rightward axis, nonspecific T wave abnormality Imaging Multiple studies:: Radiologist's impression: Chest x-ray: Radiologist's impression: No acute cardiothoracic process. Echocardiogram 02/14/2024: Radiologist's impression: The patient was in atrial flutter during the exam. The heart rate ranged between 77-90 bpm during the study. The ejection fraction is estimated to be 55-60%. The left atrium is mildly dilated. The right ventricle is normal in size and function. The right atrium is moderately dilated. There is mild mitral regurgitation. There is mild tricuspid regurgitation. The right ventricular systolic pressure is estimated to be at least 30 mmHg based on an estimated right atrial pressure of 3 mm Hg. There is a trivial pericardial effusion noted. Labs 09/09/24 04:23 09/09/24 04:23 Labs: Laboratory Results - last 24 hr 09/08/24 09/09/24 14:00 04:23 WBC 7.0 RBC 4.53 Hgb 14.7 Hct 43.2 MCV 95.3 MCH 32.3 MCHC 33.9 RDW 13.0 Plt Count 245 Neut % (Auto) 72.0 Lymph % (Auto) 18.0 L [place] % (Auto) 8.8 Eos % (Auto) 0.9 L Baso % (Auto) 0.3 Neut # (Auto) 5100 Lymph # (Auto) 1300 [place] # (Auto) 600 Eos # (Auto) 100 Baso # (Auto) 0 Sodium 137 Potassium 3.7 Chloride 108 H Carbon Dioxide 22 BUN 25 H Creatinine 0.70 Estimated GFR > 60 BUN/Creatinine Ratio 35.7 H Glucose 96 Calcium 8.6 Total Bilirubin 0.6 AST 42 H ALT 25 Alkaline Phosphatase 46 Total Protein 6.2 L Albumin 3.7 Globulin 2.5 Albumin/Globulin Ratio 1.5 Nasal Screen MRSA (PCR) Not detected [facility] Medical History Atrial fibrillation Heart palpitations Pre-syncope Fatigue Peripheral neuropathy Somatic dysfunction of rib region Somatic dysfunction of abdominal region Somatic dysfunction of upper extremity Somatic dysfunction of lower extremity Somatic dysfunction of pelvis region Somatic dysfunction of sacral region Somatic dysfunction of lumbar region Somatic dysfunction of cervical region Dog bite Meningioma Hayfever 1 para 1 Menopause (~1995) Abnormal Pap smear of cervix (2001) Chronic headaches (1996) History of eczema as a child Retinal degeneration (2010) Myopia (2010) Surgical History Severe nausea following anesthesia Status post tubal ligation (1994) Status post colonoscopy (2013) Family History Father Polycystic kidney Crohn's disease Grandfather Cancer Mother Diabetes mellitus, type 2 Dementia Pneumonia Grandmother No problems noted. Grandfather Lung cancer Grandmother Dementia Social History household members: spouse Smoking Status: Never smoker alcohol intake: never Discharge Assessment & Plan Assessment and Plan Assessment: 1. Atrial fibrillation/flutter with rapid ventricular response. Present on admission and improved. 2. History of TIA/vertebrobasilar artery insufficiency. Stable. 3. Hyperlipidemia. Stable. Plan of Treatment: Discharge home, start diltiazem CD 120 mg daily and stop her previous nifedipine. Continue other medications without change. She will contact her laborer plumbing if she was rate control issues such as sustained heart rate of over 110. She was an Apple watch to monitor her pulse rate. Discharge Plan Discharge Plan Patient Disposition: Home Provider Discharge Comment: Stable for discharge home on diltiazem CD. Discharge orders & Medications Prescriptions: New diltiazem HCl 120 mg capsule,extended release 24hr 120 mg PO DAILY Qty: 30 2RF Continued trazodone 150 mg tablet 225 mg PO QPM Qty: 135 0RF Rx Instructions: pt needs appt for further refills atorvastatin 20 mg tablet 20 mg PO ONCE PM Qty: 90 3RF Eliquis 5 mg tablet 5 mg PO BID Qty: 60 3RF cholecalciferol (vitamin D3) 1,000 unit capsule 1,000 unit PO DAILY Discontinued verapamil 240 mg capsule,ext rel. pellets 24 hr 240 mg PO DAILY Qty: 60 2RF Follow up/Referrals: Blessing Nava MD [Primary Care Provider] - Diet/Activity/Treatments Diet: Regular Activity: As tolerated. Visit Report/Discharge Packet Instructions: DI for Atrial Fibrillation Stand Alone Forms: Patient Portal/API, Stroke Signs & Symptoms Discharge Data Primary Care Provider: Blessing Nava Quality VTE Deep Vein Thrombosis/Pulmonary Embolism Present on Admission: No
--- NOTE | 2024-09-09 14:04 | PC.NURSE ---
Dilt drip off at 0945, 60 minutes after taking PO as ordered (See MAR). HR remained 70- low 90's, BP remained WDL. Pt agreeable to discharge. IVs d/c'd, telemetry removed. Pt able to dress self. Wheeled via w/c by this RN to private vehicle with spouse at approximately 1355.
== END 2024-09-09 13:55 | disposition home or self-care (01) | DRG 310 ==
LOC: ED 10:12 → AC 12:53 → ICU 13:19
PROVIDERS: Admitting Provider Internal Medicine; Emergency Provider Emergency Medicine; PCP Family Medicine; Referring Provider Emergency Medicine; Visit Provider Internal Medicine
DX: I48.91 Unspecified atrial fibrillation (principal); I48.92 Unspecified atrial flutter; E78.5 Hyperlipidemia, unspecified; Z86.73 Personal history of transient ischemic attack (TIA), and cerebral infarction without residual deficits; Z79.01 Long term (current) use of anticoagulants; Z86.79 Personal history of other diseases of the circulatory system
CPT/HCPCS: 36415; 71045; 80053; 82550; 83690; 83735; 83880; 84484; 85025; 85610; 85730; 87797; 92960; 93005; 93010; 99152; 99153; 99285; 99291; J2704

== ENCOUNTER → 2024-09-11 12:38 | Outpatient (CLI) | payer MEDICARE, OTHER, SELFPAY ==
[2024-09-08 13:16] VITALS: BMI 18.8
[2024-09-11 13:38] LABS: Add Manual Diff / Slide Review NO; Basophils Absolute Auto 0 /uL (0-100); Basophils Percent Auto 0.7 % (0-2); Eosinophils Absolute Auto 100 /uL (0-450); Eosinophils Percent Auto 1.7 % (2-4); Hematocrit 43.6 % (36-46); Hemoglobin 14.7 g/dL (12.0-16.0); Lymphocytes Absolute Auto 1400 /uL (1100-4500); Lymphocytes Percent Auto 24.4 % (25-40); Mean Corpuscular HGB Conc 33.7 % (30-36); Mean Corpuscular Hemoglobin 32.6 PG (26-34); Mean Corpuscular Volume 96.7 fL (80-100); Monocytes Absolute Auto 600 /uL (0-900); Monocytes Percent Auto 9.9 % (3-14); Neutrophils Absolute Auto 3800 /uL (1500-7000); Neutrophils Percent Auto 63.3 % (50-75); Platelet Count 257 X10^3/uL (150-400); Red Blood Cell Count 4.51 X10^6/uL (4.0-5.2); White Blood Cell Count 5.9 X10^3/uL (4.5-11.0)
[2024-09-11 14:01] LABS: BUN Creatinine Ratio 29.4 (6-22); Blood Urea Nitrogen 25 mg/dL (7-17); Calcium 9.4 mg/dL (8.4-10.2); Carbon Dioxide 26 mmol/L (22-32); Chloride 103 mmol/L (98-107); Estimated Glomerular Filt Rate > 60 mL/min (>60); Glucose 91 mg/dL (80-110); HEMOLYSIS < 15 (0-50); Potassium 4.5 mmol/L (3.4-5.1); Sodium 138 mmol/L (137-145)
[2024-09-11 14:10] LABS: NT-proBNP (BNP-Adult 18+) 1580 pg/mL (<450)
== END ==
PROVIDERS: PCP Family Medicine; Referring Provider Internal Medicine; Visit Provider Internal Medicine
DX: I48.91 Unspecified atrial fibrillation (principal); I50.89 Other heart failure
CPT/HCPCS: 36415; 80048; 83880; 85025

== ENCOUNTER 2024-09-12 10:33 | Emergency (ER) | payer MEDICARE, OTHER, SELFPAY ==
[2024-09-08 13:16] VITALS: BMI 18.8
[2024-09-12] VITALS (47 sets, daily range): BP systolic 107–153; BP diastolic 63–99; PULSE 75–145; RESP 12–24; TEMP 37.2; O2SAT 96–100; BMI 18.1
--- NOTE | 2024-09-12 10:52 | EKG_ITS ---
[place] [id number] [place] [id number] Test Date: 2024-09-12 Pat Name: Blessing Islas Department: Room: Gender: Female Locum Tenens Hospitalist: KALIA : 1945 Requested By: Order Number: [id number] Reading MD: Dewey Razo MD Measurements Intervals [place] Rate: 147 P: [place]: QRS: 80 QRSD: 96 T: -33 QT: 312 QTc: 488 Interpretive Statements Critical Test Result: High HR Supraventricular tachycardia Nonspecific ST abnormality Abnormal QRS-T angle, consider primary T wave abnormality Electronically Signed On 09-12-2024 11:59:14 PDT by Dewey Raoz MD
--- NOTE | 2024-09-12 10:52 | DI.RAD.S_ITS ---
PROCEDURE: XR CHEST 1V INDICATIONS: chest pain TECHNIQUE: One view of the chest was acquired. COMPARISON: [facility], CR, XR CHEST 1V, 09/08/2024, 10:49. FINDINGS: Surgical changes and devices: None. Lungs and pleura: Lungs are clear. No pleural effusions or pneumothorax. Mediastinum: Mediastinal contours appear normal. Heart size is normal. Bones and chest wall: No suspicious bony lesions. Overlying soft tissues appear unremarkable. IMPRESSION: No acute cardiopulmonary pathology. Dictated by: Dick Robin M.D. on 09/12/2024 at 11:29 Approved by: Dick Robin M.D. on 09/12/2024 at 11:29
[2024-09-12 11:10] LABS: Add Manual Diff / Slide Review NO; Basophils Absolute Auto 0 /uL (0-100); Basophils Percent Auto 0.6 % (0-2); Eosinophils Absolute Auto 100 /uL (0-450); Eosinophils Percent Auto 1.3 % (2-4); Hematocrit 42.7 % (36-46); Hemoglobin 14.6 g/dL (12.0-16.0); Lymphocytes Absolute Auto 900 /uL (1100-4500); Lymphocytes Percent Auto 17.9 % (25-40); Mean Corpuscular HGB Conc 34.1 % (30-36); Mean Corpuscular Hemoglobin 32.6 PG (26-34); Mean Corpuscular Volume 95.7 fL (80-100); Monocytes Absolute Auto 500 /uL (0-900); Monocytes Percent Auto 9.5 % (3-14); Neutrophils Absolute Auto 3600 /uL (1500-7000); Neutrophils Percent Auto 70.7 % (50-75); Platelet Count 251 X10^3/uL (150-400); Red Blood Cell Count 4.46 X10^6/uL (4.0-5.2); Red Cell Distribution Width 13.2 % (11.6-14.8)
[2024-09-12 11:18] LABS: INR 1.2 (0.9-1.3); Prothrombin Time 13.2 SECONDS (9.4-12.5)
[2024-09-12 11:20] LABS: PTT Partial Thromboplastin Tim 38 SECONDS (25.1-36.5)
[2024-09-12 11:24] LABS: HEMOLYSIS < 15 (0-50); Potassium 4.2 mmol/L (3.4-5.1)
[2024-09-12 11:25] LABS: Alanine Aminotransferase 29 IU/L (<35); Albumin 4.2 g/dL (3.5-5.0); Albumin Globulin Ratio 1.6 (1.0-2.8); Alkaline Phosphatase 43 U/L (38-126); Aspartate Aminotransferase 33 IU/L (14-36); BUN Creatinine Ratio 33.8 (6-22); Bilirubin Total 0.6 mg/dL (0.2-1.3); Blood Urea Nitrogen 27 mg/dL (7-17); Carbon Dioxide 25 mmol/L (22-32); Chloride 103 mmol/L (98-107); Creatine Kinase 244 U/L (30-135); Estimated Glomerular Filt Rate > 60 mL/min (>60); Globulin 2.6 g/dL (1.7-4.1); Glucose 127 mg/dL (80-110); Lipase 125 U/L (23-300); Magnesium 2.2 mg/dL (1.6-2.3); Sodium 136 mmol/L (137-145); Total Protein 6.8 g/dL (6.3-8.2)
[2024-09-12 11:34] LABS: NT-proBNP (BNP-Adult 18+) 1520 pg/mL (<450); Troponin I < 0.012 ng/mL (0.01-0.034)
--- NOTE | 2024-09-12 11:59 | ED_ITS ---
HPI - Arrhythmia/Palpitations General Chief Complaint: Arrhythmia/Palpitations Stated Complaint: Elevated Heart rate Time Seen by Provider: 09/12/24 11:06 History of Present Illness HPI narrative: 78-year-old female with a history of atrial fibrillation and recently difficult to control rate. Previously was on verapamil, fails that, was seen here recently and started on diltiazem 100 mg of the extended release daily and she is also taking Eliquis. Patient and her report that she has been tachycardic since her last emergency department visit and today are heart rate was over 150 so she came to be seen. She feels a little lightheaded at times. She is not having chest pain or shortness of breath. She is scheduled for an ablation next month and is seen by electrophysiology at [facility]. Patient reports that she has been taking her Eliquis. Related Data Home Medications Medication Instructions Recorded Confirmed cholecalciferol (vitamin D3) 25 1,000 unit PO DAILY 01/19/18 09/12/24 mcg (1,000 unit) capsule Previous Rx's Medication Instructions Recorded apixaban 5 mg tablet (Eliquis) 5 mg PO BID #60 tabs 08/16/24 atorvastatin 20 mg tablet 20 mg PO ONCE PM #90 tabs 08/16/24 diltiazem HCl 120 mg 120 mg PO DAILY #30 caps 09/09/24 capsule,extended release 24 hr trazodone 150 mg tablet 225 mg (1.5 x 150 mg) PO QPM #135 09/10/24 tabs amiodarone 100 mg tablet 100 mg PO DAILY #30 tabs 09/12/24 Allergies Allergy/AdvReac Type Severity Reaction Status Date / Time No Known Drug Allergies Allergy Verified 09/12/24 10:51 Patient History Medical History Atrial fibrillation Heart palpitations Pre-syncope Fatigue Peripheral neuropathy Somatic dysfunction of rib region Somatic dysfunction of abdominal region Somatic dysfunction of upper extremity Somatic dysfunction of lower extremity Somatic dysfunction of pelvis region Somatic dysfunction of sacral region Somatic dysfunction of lumbar region Somatic dysfunction of cervical region Dog bite Meningioma Hayfever 1 para 1 Menopause (~1995) Abnormal Pap smear of cervix (2001) Chronic headaches (1996) History of eczema as a child Retinal degeneration (2010) Myopia (2010) Surgical History Severe nausea following anesthesia Status post tubal ligation (1994) Status post colonoscopy (2013) Family History Father Polycystic kidney Crohn's disease Grandfather Cancer Mother Diabetes mellitus, type 2 Dementia Pneumonia Grandmother No problems noted. Grandfather Lung cancer Grandmother Dementia Social History household members: spouse Smoking Status: Never smoker alcohol intake: never Smoking Status: Never smoker alcohol intake frequency: 0-2 drinks per day Exam Initial Vital Signs Initial Vital Signs: Vital Signs Temperature 98.9 F 09/12/24 10:45 Pulse Rate 144 H 09/12/24 10:45 Respiratory Rate 17 09/12/24 10:45 Blood Pressure 116/65 09/12/24 10:45 Pulse Oximetry 99 09/12/24 10:45 Oxygen Delivery Method Room Air 09/12/24 10:45 Const General: cooperative and No acute distress HENIN Head: normocephalic and atraumatic Neck Neck: normal visual inspection and No JVD Resp Effort & Inspection: normal respiratory effort Auscultation: clear to auscultation bilaterally Cardio Heart Sounds: no murmurs (Quite tachycardic, seemingly regular) Skin General: warm Neuro General: patient alert and patient oriented x3 Extrem General: full ROM Course Orders Ordered: ED Orders 09/12/24 10:52 XR chest 1V Stat EKG-12 Lead Stat 09/12/24 11:00 Complete Blood Count AUTO DIFF Stat Comprehensive Metabolic Panel Stat Lipase Stat Magnesium Stat NT-proBNP (BNP-Adult 18+) Stat PTT Partial Thromboplastin Robby Stat Prothrombin Time INR Stat Troponin & CK Cardiac Panel Stat 09/12/24 15:38 EKG-12 Lead Stat Discontinued Medications Aspirin (Aspirin 81 Mg Chew Tab) 324 mg PO NOW ONE Stop: 09/12/24 10:53 Last Admin: 09/12/24 13:25 Dose: 324 mg Documented By: ANDREA Diltiazem HCl (Diltiazem 25 Mg/5 Ml Sdv) 20 mg IV NOW ONE Stop: 09/12/24 11:40 Last Admin: 09/12/24 12:34 Dose: Not Given Documented By: ANDREA Etomidate (Etomidate 2 Mg/Ml 10 Ml Vial) 4.8 mg 0.1 mg/kg (4.8 mg) IV NOW ONE Stop: 09/12/24 14:59 Last Admin: 09/12/24 15:52 Dose: Not Given Amiodarone HCl/Dextrose (Nexterone) 150 mg in 100 mls @ 600 mls/hr IV NOW ONE; Protocol Stop: 09/12/24 12:16 Last Infusion: 09/12/24 13:04 Dose: Infused Documented By: Admin: 09/12/24 12:31 Dose: 200 mls/hr Documented By: ANDREA Reevaluation(s) Reevaluation #1: After amiodarone, no improvement in heart rate, EKG is reviewed case is discussed again with Dr. Watt who asked that we repeat an attempted cardioversion. Patient was agreeable with doing so. Consultations Consultation #1: Case discussed with cardiology Dr. Burrows. He would like us to try amiodarone 150 mg IV over 30 minutes. He notes that previously the patient has had difficulty with a low resting heart rate, we will re-evaluate after the amiodarone to determine whether she should continue that as an outpatient. Consultation #2: Prior to cardioversion, the patient's heart rate slowed to the 80s. She remains in atrial flutter. Case was discussed with Dr. Watt via secure text, she should be discharged home to continue anticoagulation Cardizem and amiodarone. Vital Signs Vital signs: Vital Signs - 8 hr 09/12/24 10:45 09/12/24 12:10 09/12/24 12:12 Temperature 98.9 F Pulse Rate 144 H 145 H 145 H Respiratory Rate 17 18 22 Blood Pressure 116/65 Pulse Oximetry 99 99 98 Oxygen Delivery Method Room Air 09/12/24 12:12 09/12/24 12:15 09/12/24 12:20 Temperature Pulse Rate 144 H 144 H Respiratory Rate 15 16 Blood Pressure 122/71 Pulse Oximetry 98 97 Oxygen Delivery Method 09/12/24 12:25 09/12/24 12:30 09/12/24 12:30 Temperature Pulse Rate 144 H 144 H Respiratory Rate 15 15 Blood Pressure 114/74 Pulse Oximetry 98 97 Oxygen Delivery Method 09/12/24 12:35 09/12/24 12:40 09/12/24 12:40 Temperature Pulse Rate 144 H 141 H Respiratory Rate 15 15 Blood Pressure 117/78 Pulse Oximetry 97 96 Oxygen Delivery Method Room Air 09/12/24 12:45 09/12/24 12:45 09/12/24 12:50 Temperature Pulse Rate 138 H 137 H Respiratory Rate 16 16 Blood Pressure 119/79 Pulse Oximetry 96 97 Oxygen Delivery Method 09/12/24 12:50 09/12/24 12:55 09/12/24 12:55 Temperature Pulse Rate 129 H Respiratory Rate 13 Blood Pressure 125/79 107/68 Pulse Oximetry 98 Oxygen Delivery Method 09/12/24 13:00 09/12/24 13:00 09/12/24 13:05 Temperature Pulse Rate 126 H Respiratory Rate 17 Blood Pressure 112/78 111/75 Pulse Oximetry 99 Oxygen Delivery Method 09/12/24 13:05 09/12/24 13:10 09/12/24 13:10 Temperature Pulse Rate 128 H 132 H Respiratory Rate 15 15 Blood Pressure 109/77 Pulse Oximetry 98 98 Oxygen Delivery Method Room Air 09/12/24 13:15 09/12/24 13:15 09/12/24 13:20 Temperature Pulse Rate 136 H Respiratory Rate 14 Blood Pressure 114/78 120/74 Pulse Oximetry 98 Oxygen Delivery Method 09/12/24 13:20 09/12/24 13:27 09/12/24 13:30 Temperature Pulse Rate 137 H 138 H 128 H Respiratory Rate 14 20 18 Blood Pressure Pulse Oximetry 98 99 98 Oxygen Delivery Method 09/12/24 13:31 09/12/24 13:31 Temperature Pulse Rate 125 H Respiratory Rate 12 Blood Pressure 127/77 Pulse Oximetry 99 Oxygen Delivery Method MDM - Arrhythmia/Palpitations Lab Data Lab results narrative: CBC with diff and CMP are unremarkable, troponin is normal, she has a stably elevated proBNP 09/12/24 11:00 09/12/24 11:00 Labs: Lab Results 09/12/24 Range/Units 11:00 WBC 5.0 (4.5-11.0) X10^3/uL RBC 4.46 (4.0-5.2) X10^6/uL Hgb 14.6 (12.0-16.0) g/dL Hct 42.7 (36-46) % MCV 95.7 (80-100) fL MCH 32.6 (26-34) PG MCHC 34.1 (30-36) % RDW 13.2 (11.6-14.8) % Plt Count 251 (150-400) X10^3/uL Neut % (Auto) 70.7 (50-75) % Lymph % (Auto) 17.9 L (25-40) % [place] % (Auto) 9.5 (3-14) % Eos % (Auto) 1.3 L (2-4) % Baso % (Auto) 0.6 (0-2) % Neut # (Auto) 3600 (9125-3058) /uL Lymph # (Auto) 900 L (2553-3883) /uL [place] # (Auto) 500 (0-900) /uL Eos # (Auto) 100 (0-450) /uL Baso # (Auto) 0 (0-100) /uL PT 13.2 H (9.4-12.5) SECONDS INR 1.2 (0.9-1.3) APTT 38 H (25.1-36.5) SECONDS Sodium 136 L (137-145) mmol/L Potassium 4.2 (3.4-5.1) mmol/L Chloride 103 (98-107) mmol/L Carbon Dioxide 25 (22-32) mmol/L BUN 27 H (7-17) mg/dL Creatinine 0.80 (0.52-1.04) mg/dL Estimated GFR > 60 (>60) mL/min BUN/Creatinine Ratio 33.8 H (6-22) Glucose 127 H (80-110) mg/dL Calcium 9.0 (8.4-10.2) mg/dL Magnesium 2.2 (1.6-2.3) mg/dL Total Bilirubin 0.6 (0.2-1.3) mg/dL AST 33 (14-36) IU/L ALT 29 (<35) IU/L Alkaline Phosphatase 43 (38-126) U/L Total Creatine Kinase 244 H (30-135) U/L Troponin I < 0.012 (0.01-0.034) ng/mL NT-Pro-B Natriuret Pep 1520 H (<450) pg/mL Total Protein 6.8 (6.3-8.2) g/dL Albumin 4.2 (3.5-5.0) g/dL Globulin 2.6 (1.7-4.1) g/dL Albumin/Globulin Ratio 1.6 (1.0-2.8) Lipase 125 (23-300) U/L Imaging Data Chest x-ray: My Impression: Independent review of chest x-ray no acute findings Radiologist's Impresson: Radiology report reviewed, no acute findings ECG Data Interpretation: Initial EKG shows a regular narrow complex tachycardia at 140. Repeat ECG at 1543 shows atrial flutter with a variable AV block and a ventricular rate of 87. Discharge Plan Departure Patient Disposition: Home Clinical Impression: Atrial flutter with rapid ventricular response Activity Restrictions/Additional Instructions: Today, we saw you for a rapid heart rate that turned out to be atrial flutter. We added another medication, amiodarone which appears to be controlling her heart rate. I have sent a prescription for that medication to your pharmacy, start that tomorrow. Continue with diltiazem and Eliquis. Call cardiology for follow up as soon as possible. If you are having chest pain shortness of breath fainting or uncontrolled rapid heart rate recheck in the emergency department. Prescriptions: New amiodarone 100 mg tablet 100 mg PO DAILY Qty: 30 0RF No Action atorvastatin 20 mg tablet 20 mg PO ONCE PM Qty: 90 3RF Eliquis 5 mg tablet 5 mg PO BID Qty: 60 3RF trazodone 150 mg tablet 225 mg PO QPM Qty: 135 0RF cholecalciferol (vitamin D3) 1,000 unit capsule 1,000 unit PO DAILY diltiazem HCl 120 mg capsule,extended release 24hr 120 mg PO DAILY Qty: 30 2RF Referrals: Blessing Nava MD [Primary Care Provider] - Stand Alone Forms: Patient Portal/API/Survey
[2024-09-12] MEDS: AMIODARONE 150 MG/100 ML PIGGYBACK 200 MG IV (12:31)
[2024-09-12] MEDS: ASPIRIN 81 MG CHEW TAB 324 MG PO (13:25)
--- NOTE | 2024-09-12 15:38 | EKG_ITS ---
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
--- NOTE | 2024-09-12 15:43 | EKG_ITS ---
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
== END 2024-09-12 16:54 | disposition home or self-care (01) ==
PROVIDERS: Emergency Provider Emergency Medicine; PCP Family Medicine
DX: I48.92 Unspecified atrial flutter (principal); Z79.01 Long term (current) use of anticoagulants
CPT/HCPCS: 36415; 71045; 80053; 82550; 83690; 83735; 83880; 84484; 85025; 85610; 85730; 93005; 93010; 96365; 99284; 99285; J0282

== ENCOUNTER → 2024-10-02 17:11 | Outpatient (CLI) | payer MEDICARE, OTHER, SELFPAY ==
[2024-09-08 13:16] VITALS: BMI 18.8
[2024-10-02 17:39] LABS: Add Manual Diff / Slide Review NO; Basophils Absolute Auto 0 /uL (0-100); Basophils Percent Auto 0.6 % (0-2); Eosinophils Absolute Auto 100 /uL (0-450); Eosinophils Percent Auto 2.2 % (2-4); Hematocrit 43.5 % (36-46); Hemoglobin 14.7 g/dL (12.0-16.0); Lymphocytes Absolute Auto 1500 /uL (1100-4500); Mean Corpuscular HGB Conc 33.9 % (30-36); Mean Corpuscular Hemoglobin 32.6 PG (26-34); Mean Corpuscular Volume 96.4 fL (80-100); Monocytes Absolute Auto 500 /uL (0-900); Monocytes Percent Auto 9.5 % (3-14); Neutrophils Absolute Auto 3300 /uL (1500-7000); Neutrophils Percent Auto 60.7 % (50-75); Platelet Count 226 X10^3/uL (150-400); Red Blood Cell Count 4.51 X10^6/uL (4.0-5.2); White Blood Cell Count 5.4 X10^3/uL (4.5-11.0)
[2024-10-02 17:56] LABS: BUN Creatinine Ratio 29.1 (6-22); Blood Urea Nitrogen 25 mg/dL (7-17); Calcium 9.3 mg/dL (8.4-10.2); Carbon Dioxide 29 mmol/L (22-32); Chloride 103 mmol/L (98-107); Estimated Glomerular Filt Rate > 60 mL/min (>60); Glucose 96 mg/dL (80-110); HEMOLYSIS 19 (0-50); Sodium 138 mmol/L (137-145)
[2024-10-02 18:05] LABS: NT-proBNP (BNP-Adult 18+) 300 pg/mL (<450)
== END ==
LOC: LAB 17:14
PROVIDERS: PCP Family Medicine; Referring Provider Internal Medicine; Visit Provider Internal Medicine
DX: I48.91 Unspecified atrial fibrillation (principal); I50.89 Other heart failure
CPT/HCPCS: 36415; 80048; 83880; 85025

== ENCOUNTER → 2024-10-03 15:12 | Outpatient (CLI) | payer MEDICARE, OTHER, SELFPAY ==
[2024-09-08 13:16] VITALS: BMI 18.8
--- NOTE | 2024-10-03 15:13 | DI.MG.S_ITS ---
MM screening mammo BI: 10/03/2024. BI-RADS: 0 CLINICAL: 78-year old female for bilateral screening mammogram. Tyrer-Cuzick lifetime risk of 2.4%. No personal or first-degree family history of breast cancer. PRIOR EXAMS 09/19/2023, 09/14/2022, 09/09/2021, 08/27/2020, 08/21/2019, 06/14/2018, 06/01/2017, 05/26/2016, 05/22/2015. MAMMOGRAPHY TECHNIQUE: 2D and 3D (tomosynthesis) digital mammographic views obtained, with additional images as needed for full coverage. Current study was also evaluated with a Computer Aided Detection (CAD) system. DENSITY C. The breasts are heterogeneously dense, which may obscure small masses. MAMMOGRAPHY FINDINGS Right: No suspicious mass, asymmetry, microcalcification, or other abnormality seen. Left: CC only, Inner, Middle depth, measuring 0.4 cm: Asymmetry needing additional imaging evaluation. IMPRESSION: Right * No evidence of malignancy. Left (Asymmetry): CC only, Inner, Middle depth, measuring 0.4 cm * Incomplete - asymmetry needing additional imaging evaluation. RECOMMENDATIONS Left: CC only, Inner, Middle depth * Further evaluation with diagnostic mammography and diagnostic ultrasound. Ultrasound to be performed only if needed. OVERALL ASSESSMENT CATEGORY BI-RADS-0: Incomplete - Need Additional Imaging Evaluation. ELECTRONICALLY SIGNED: Marily Maldonado M.D. on 10/04/2024 at 12:09:45 PM PT Interpreting Station ID: [id number]
== END ==
PROVIDERS: PCP Family Medicine; Referring Provider Family Medicine; Visit Provider Family Medicine
DX: Z12.31 Encounter for screening mammogram for malignant neoplasm of breast (principal); R92.8 Other abnormal and inconclusive findings on diagnostic imaging of breast; R92.333 Mammographic heterogeneous density, bilateral breasts
CPT/HCPCS: 77063; 77067

== ENCOUNTER 2024-10-13 11:29 | Emergency (ER) | payer MEDICARE, OTHER, SELFPAY ==
[2024-09-08 13:16] VITALS: BMI 18.8
[2024-10-13] VITALS (18 sets, daily range): BP systolic 119–143; BP diastolic 60–103; PULSE 71–143; RESP 14–24; TEMP 36.4; O2SAT 97–100; BMI 19.3
--- NOTE | 2024-10-13 11:36 | DI.RAD.S_ITS ---
PROCEDURE: XR CHEST 1V INDICATIONS: chest pain TECHNIQUE: One view of the chest was acquired. COMPARISON: [facility], CR, XR CHEST 1V, 09/12/2024, 11:05. FINDINGS: Surgical changes and devices: None. Lungs and pleura: Lungs are clear. No pleural effusions or pneumothorax. Mediastinum: Mediastinal contours appear normal. Heart size is normal. Bones and chest wall: No suspicious bony lesions. Overlying soft tissues appear unremarkable. IMPRESSION: No acute cardiopulmonary abnormality is seen. Approved by: Anil Sheikh M.D. on 10/13/2024 at 11:33
--- NOTE | 2024-10-13 11:46 | EKG_ITS ---
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
[2024-10-13 11:58] LABS: INR 1.1 (0.9-1.3); Prothrombin Time 12.9 SECONDS (9.4-12.5)
[2024-10-13 12:00] LABS: PTT Partial Thromboplastin Tim 37 SECONDS (25.1-36.5)
[2024-10-13 12:01] LABS: Add Manual Diff / Slide Review NO; Basophils Absolute Auto 0 /uL (0-100); Basophils Percent Auto 0.3 % (0-2); Eosinophils Absolute Auto 0 /uL (0-450); Eosinophils Percent Auto 0.4 % (2-4); Hematocrit 48.6 % (36-46); Hemoglobin 16.3 g/dL (12.0-16.0); Lymphocytes Absolute Auto 800 /uL (1100-4500); Lymphocytes Percent Auto 11.6 % (25-40); Mean Corpuscular HGB Conc 33.5 % (30-36); Mean Corpuscular Hemoglobin 32.4 PG (26-34); Mean Corpuscular Volume 96.7 fL (80-100); Monocytes Absolute Auto 400 /uL (0-900); Monocytes Percent Auto 5.7 % (3-14); Neutrophils Absolute Auto 5800 /uL (1500-7000); Platelet Count 282 X10^3/uL (150-400); Red Blood Cell Count 5.03 X10^6/uL (4.0-5.2); Red Cell Distribution Width 12.7 % (11.6-14.8)
[2024-10-13] MEDS: dilTIAZem 25 MG/5 ML SDV 10 MG IV (12:01)
[2024-10-13 12:03] LABS: Alanine Aminotransferase 29 IU/L (<35); Albumin 4.8 g/dL (3.5-5.0); Albumin Globulin Ratio 1.8 (1.0-2.8); Alkaline Phosphatase 57 U/L (38-126); Aspartate Aminotransferase 27 IU/L (14-36); BUN Creatinine Ratio 30.8 (6-22); Bilirubin Total 0.7 mg/dL (0.2-1.3); Blood Urea Nitrogen 28 mg/dL (7-17); Calcium 9.4 mg/dL (8.4-10.2); Carbon Dioxide 26 mmol/L (22-32); Chloride 101 mmol/L (98-107); Creatine Kinase 57 U/L (30-135); Estimated Glomerular Filt Rate > 60 mL/min (>60); Globulin 2.7 g/dL (1.7-4.1); Glucose 162 mg/dL (70-99); HEMOLYSIS < 15 (0-50); Lipase 253 U/L (23-300); Magnesium 1.9 mg/dL (1.6-2.3); Potassium 3.8 mmol/L (3.4-5.1); Sodium 136 mmol/L (137-145); Total Protein 7.5 g/dL (6.3-8.2)
[2024-10-13 12:14] LABS: NT-proBNP (BNP-Adult 18+) 808 pg/mL (<450); Troponin I < 0.012 ng/mL (0.01-0.034)
--- NOTE | 2024-10-13 15:17 | PC.NURSE ---
Holding diltiazem; Pt converted to NSR: 1515
--- NOTE | 2024-10-13 15:26 | ED_ITS ---
HPI - Arrhythmia/Palpitations General Chief Complaint: Arrhythmia/Palpitations Stated Complaint: Had a ablation, elevated HR and at AFIB. Time Seen by Provider: 10/13/24 11:58 Source: patient, RN notes reviewed and old records reviewed Mode of arrival: Ambulatory Limitations: no limitations History of Present Illness HPI narrative: 79-year-old female history of atrial fibrillation and had ablation at [facility] on October 04 on Eliquis presents with a complaint of palpitations and fluttering that started last night. She noticed she was in atrial fibrillation and irregular this morning and presented to the ED. No lightheadedness or passing out, no chest pain no shortness of breath no nausea or vomiting no other GI or urinary symptoms. No swelling in extremities. Patient takes diltiazem, amiodarone and apixaban daily as well as statin. Patient is started on amiodarone after her ablation before that she was on diltiazem which they had her stop. Patient states other than palpitation she does not have any other symptoms. She was normally on atorvastatin 20 mg, trazodone to 25 mg nightly, Eliquis 5 mg b.i.d., started taking amiodarone 100 mg daily and had her last dose this morning. That was started after ablation. She stopped her diltiazem 220 mg extended release with her ablation. Denies any other prior cardiac surgeries or interventions. States only other prior surgeries or appendectomy. No known drug allergies. No tobacco, alcohol or recreational drugs. Dr. Nava is her primary care physician. Patients EP with Cardiology at [facility] is Dr. Charles. Related Data Home Medications Medication Instructions Recorded Confirmed cholecalciferol (vitamin D3) 25 1,000 unit PO DAILY 01/19/18 09/12/24 mcg (1,000 unit) capsule Previous Rx's Medication Instructions Recorded apixaban 5 mg tablet (Eliquis) 5 mg PO BID #60 tabs 08/16/24 atorvastatin 20 mg tablet 20 mg PO ONCE PM #90 tabs 08/16/24 diltiazem HCl 120 mg 120 mg PO DAILY #30 caps 09/09/24 capsule,extended release 24 hr trazodone 150 mg tablet 225 mg (1.5 x 150 mg) PO QPM #135 09/10/24 tabs amiodarone 100 mg tablet 100 mg PO DAILY #30 tabs 09/12/24 Allergies Allergy/AdvReac Type Severity Reaction Status Date / Time No Known Drug Allergies Allergy Verified 09/12/24 10:51 Review of Systems Review of Systems ROS Unobtainable: All systems reviewed & are unremarkable except as noted in HPI and below Patient History Medical History Abnormal mammogram Atrial fibrillation Heart palpitations Pre-syncope Fatigue Peripheral neuropathy Somatic dysfunction of rib region Somatic dysfunction of abdominal region Somatic dysfunction of upper extremity Somatic dysfunction of lower extremity Somatic dysfunction of pelvis region Somatic dysfunction of sacral region Somatic dysfunction of lumbar region Somatic dysfunction of cervical region Dog bite Meningioma Hayfever 1 para 1 Menopause (~1995) Abnormal Pap smear of cervix (2001) Chronic headaches (1996) History of eczema as a child Retinal degeneration (2010) Myopia (2010) Surgical History Severe nausea following anesthesia Status post tubal ligation (1994) Status post colonoscopy (2013) Family History Father Polycystic kidney Crohn's disease Grandfather Cancer Mother Diabetes mellitus, type 2 Dementia Pneumonia Grandmother No problems noted. Grandfather Lung cancer Grandmother Dementia Social History household members: spouse Smoking Status: Never smoker alcohol intake: never Smoking Status: Never smoker alcohol intake frequency: 0-2 drinks per day Exam Narrative Exam Narrative: GENERAL: Alert and oriented x three, thin, well-appearing female in mild distress HEENT: Head normocephalic, atraumatic, EOMI, pupils reactive, face symmetric, moist mucous membranes NECK: Supple, full range of motion CARDIOVASCULAR: Regular rate and rhythm without murmurs, rubs or gallops. No JVD. No edema bilateral lower extremities. RESPIRATORY: Breath sounds equal bilaterally, no wheezes rales or rhonchi. ABDOMEN: Soft, nontender. Normoactive bowel sounds all 4 quadrants. No guarding or rebound, rigidity, no mass : No CVA tenderness EXTREMITIES: Normal range of motion, no clubbing or edema. Neurovascularly intact NEUROLOGICAL: Cranial nerves II through XII grossly intact. Moving all extremities SKIN: Warm, dry, no petechiae, no rashes or lesions. Initial Vital Signs Initial Vital Signs: Vital Signs Temperature 97.6 F 10/13/24 11:31 Pulse Rate 124 H 10/13/24 11:31 Respiratory Rate 20 10/13/24 11:31 Blood Pressure 127/74 10/13/24 11:31 Pulse Oximetry 99 10/13/24 11:31 Oxygen Delivery Method Room Air 10/13/24 11:31 Course Orders Ordered: ED Orders 10/13/24 11:36 XR chest 1V Stat EKG-12 Lead Stat 10/13/24 11:45 Complete Blood Count AUTO DIFF Stat Comprehensive Metabolic Panel Stat Lipase Stat Magnesium Stat NT-proBNP (BNP-Adult 18+) Stat PTT Partial Thromboplastin Robby Stat Prothrombin Time INR Stat Troponin & CK Cardiac Panel Stat 10/13/24 15:36 EKG-12 Lead Routine Discontinued Medications Amiodarone HCl (Amiodarone 200 Mg Tablet) 100 mg PO NOW ONE Stop: 10/13/24 15:57 Last Admin: 10/13/24 16:08 Dose: 100 mg Documented By: TOMAS Aspirin (Aspirin 81 Mg Chew Tab) 324 mg PO NOW ONE Stop: 10/13/24 11:37 Last Admin: 10/13/24 12:38 Dose: Not Given Documented By: TOMAS Diltiazem HCl (Diltiazem 25 Mg/5 Ml Sdv) 10 mg IV NOW ONE Stop: 10/13/24 11:59 Last Admin: 10/13/24 12:01 Dose: 10 mg Documented By: TOMAS Diltiazem HCl (Diltiazem 25 Mg/5 Ml Sdv) 10 mg IV NOW ONE Stop: 10/13/24 15:11 Last Admin: 10/13/24 16:04 Dose: Not Given Documented By: TOMAS Sodium Chloride (Normal Saline 0.9%) 500 mls @ 1,000 mls/hr IV BOLUS ONE Stop: 10/13/24 16:10 Last Infusion: 10/13/24 16:16 Dose: Infused Documented By: Admin: 10/13/24 15:44 Dose: 1,000 mls/hr Documented By: TOMAS Vital Signs Vital signs: Vital Signs - 8 hr 10/13/24 11:31 10/13/24 11:52 10/13/24 11:54 Temperature 97.6 F Pulse Rate 124 H 115 H Respiratory Rate 20 20 Blood Pressure 127/74 133/64 Pulse Oximetry 99 97 Oxygen Delivery Method Room Air 10/13/24 11:54 10/13/24 12:00 10/13/24 12:00 Temperature Pulse Rate 132 H 143 H Respiratory Rate 20 14 Blood Pressure 140/73 Pulse Oximetry 99 99 Oxygen Delivery Method 10/13/24 12:26 10/13/24 12:30 10/13/24 12:30 Temperature Pulse Rate 93 H 72 Respiratory Rate 14 Blood Pressure 119/60 Pulse Oximetry 97 Oxygen Delivery Method 10/13/24 13:00 10/13/24 13:00 10/13/24 13:30 Temperature Pulse Rate 85 Respiratory Rate 14 Blood Pressure 122/66 126/72 Pulse Oximetry 97 Oxygen Delivery Method 10/13/24 13:30 10/13/24 14:00 10/13/24 14:00 Temperature Pulse Rate 78 88 Respiratory Rate 14 17 Blood Pressure 125/78 Pulse Oximetry 99 99 Oxygen Delivery Method 10/13/24 14:30 10/13/24 14:30 10/13/24 15:00 Temperature Pulse Rate 141 H 141 H Respiratory Rate 14 14 Blood Pressure 143/77 H Pulse Oximetry 97 100 Oxygen Delivery Method 10/13/24 15:14 10/13/24 15:14 10/13/24 15:17 Temperature Pulse Rate 76 75 Respiratory Rate 24 Blood Pressure 138/103 H Pulse Oximetry 100 Oxygen Delivery Method 10/13/24 15:30 10/13/24 15:31 10/13/24 15:31 Temperature Pulse Rate 75 75 Respiratory Rate 21 21 Blood Pressure 127/71 Pulse Oximetry 100 100 Oxygen Delivery Method 10/13/24 16:00 10/13/24 16:00 10/13/24 16:04 Temperature Pulse Rate 73 75 Respiratory Rate 22 Blood Pressure 135/87 Pulse Oximetry 100 Oxygen Delivery Method 10/13/24 16:34 Temperature Pulse Rate 71 Respiratory Rate 16 Blood Pressure 135/87 Pulse Oximetry 98 Oxygen Delivery Method Room Air MDM - Arrhythmia/Palpitations Lab Data 10/13/24 11:45 10/13/24 11:45 Labs: Lab Results 10/13/24 Range/Units 11:45 WBC 7.0 (4.5-11.0) X10^3/uL RBC 5.03 (4.0-5.2) X10^6/uL Hgb 16.3 H (12.0-16.0) g/dL Hct 48.6 H (36-46) % MCV 96.7 (80-100) fL MCH 32.4 (26-34) PG MCHC 33.5 (30-36) % RDW 12.7 (11.6-14.8) % Plt Count 282 (150-400) X10^3/uL Neut % (Auto) 82.0 H (50-75) % Lymph % (Auto) 11.6 L (25-40) % [place] % (Auto) 5.7 (3-14) % Eos % (Auto) 0.4 L (2-4) % Baso % (Auto) 0.3 (0-2) % Neut # (Auto) 5800 (1203-1574) /uL Lymph # (Auto) 800 L (1782-3359) /uL [place] # (Auto) 400 (0-900) /uL Eos # (Auto) 0 (0-450) /uL Baso # (Auto) 0 (0-100) /uL PT 12.9 H (9.4-12.5) SECONDS INR 1.1 (0.9-1.3) APTT 37 H (25.1-36.5) SECONDS Sodium 136 L (137-145) mmol/L Potassium 3.8 (3.4-5.1) mmol/L Chloride 101 (98-107) mmol/L Carbon Dioxide 26 (22-32) mmol/L BUN 28 H (7-17) mg/dL Creatinine 0.91 (0.52-1.04) mg/dL Estimated GFR > 60 (>60) mL/min BUN/Creatinine Ratio 30.8 H (6-22) Glucose 162 H (70-99) mg/dL Calcium 9.4 (8.4-10.2) mg/dL Magnesium 1.9 (1.6-2.3) mg/dL Total Bilirubin 0.7 (0.2-1.3) mg/dL AST 27 (14-36) IU/L ALT 29 (<35) IU/L Alkaline Phosphatase 57 (38-126) U/L Total Creatine Kinase 57 (30-135) U/L Troponin I < 0.012 (0.01-0.034) ng/mL NT-Pro-B Natriuret Pep 808 H (<450) pg/mL Total Protein 7.5 (6.3-8.2) g/dL Albumin 4.8 (3.5-5.0) g/dL Globulin 2.7 (1.7-4.1) g/dL Albumin/Globulin Ratio 1.8 (1.0-2.8) Lipase 253 (23-300) U/L ECG Data Attestation: I personally reviewed and interpreted this ECG as follows: Prior ECG tracings: available for review Interpretation: AFib RVR rate of 136 QRS 84 QTC of 427. Asked to be depression lateral leads few through through V6. No elevation. Patient has prior from 09/12/2024 which shows flutter no depression at that time but rate was 87. Repeat EKG shows sinus rhythm rate of 77, MO 186 QRS is 76 QTC of 441, no acute ST elevation depression noted. MDM Narrative Medical decision making narrative: Labs show hemoglobin of 16.3, this is elevated from patient's priors patient's white count 7, platelets are 282. INR is 1.1, potassium 3.8, magnesium is 1.9 glucose is 162 BUN 28 with otherwise appropriate electrolytes. LFTs are negative troponins less than 0.012 with a BNP of 808. Was 300 on October 02. Was 1520 on August of 2024. Chest x-ray shows no acute change. Initial EKG shows AFib RVR, does have some depression in lateral leads. Repeat EKG shows patient has self converted into sinus rhythm. Patient had 10 mg of diltiazem was rate controlled for quite awhile then return to heart rate about 140s. Was going to receive an additional 10 mg of diltiazem IV but did not and cardioverted on her own. Patient was on amiodarone appears to be 100 mg daily as well as diltiazem 120 mg daily she was anticoagulants Eliquis. She did have an ablation 9 days ago at [facility]. Patient has a 500 mL bolus of normal saline, 10 mg diltiazem IV as well as 100 mg amiodarone p.o.. Spoke with on-call Cardiology Dr. Cai for [facility] @ 3330 he recommends increased amiodarone to 200 mg daily from 100mg daily and to call Dr. Charles office tomorrow for follow up. Reviewed patient's findings from today. Patient continues to be rate controlled in sinus rhythm prior to discharge. Discussed with her and family they feel comfortable with this plan. She will call tomorrow to set up follow up and update Dr. Charles. She does not have any formal follow up in place currently. Discharge Plan Departure Patient Disposition: Home Clinical Impression: Atrial fibrillation with rapid ventricular response Instructions: DI for Atrial Fibrillation Activity Restrictions/Additional Instructions: I spoke with on-call Cardiology today, Dr. Cai. They ask that you call the office tomorrow morning to follow up with Dr. Charles. They also asked that you increase your amiodarone to 200 mg daily, take 2 tablet of your amiodarone daily. Please return for recurrent symptoms, new chest pain or shortness of breath, lightheadedness or passing out, fevers, new swelling of your extremities or other new or concerning changes. Prescriptions: No Action atorvastatin 20 mg tablet 20 mg PO ONCE PM Qty: 90 3RF Eliquis 5 mg tablet 5 mg PO BID Qty: 60 3RF trazodone 150 mg tablet 225 mg PO QPM Qty: 135 0RF cholecalciferol (vitamin D3) 1,000 unit capsule 1,000 unit PO DAILY diltiazem HCl 120 mg capsule,extended release 24hr 120 mg PO DAILY Qty: 30 2RF amiodarone 100 mg tablet 100 mg PO DAILY Qty: 30 0RF Referrals: Blessing Nava MD [Primary Care Provider] - Stand Alone Forms: Patient Portal/API/Survey
--- NOTE | 2024-10-13 15:36 | EKG_ITS ---
[address] [address] Test Date: 2024-10-13 Pat Name: Blessing Islas Department: Room: Gender: Female Trials Manager: SHAUNA : 1945 Requested By: Order Number: [id number] Reading MD: Jaspreet Arce Measurements Intervals [place] Rate: 77 P: 53 [place]: 186 QRS: 57 QRSD: 76 T: 29 QT: 390 QTc: 441 Interpretive Statements Normal sinus rhythm Electronically Signed On 10-16-2024 17:37:49 PDT by Jaspreet Arce
[2024-10-13] MEDS: SODIUM CHLORIDE 0.9% 500 ML 1000 ML IV (15:44)
[2024-10-13] MEDS: AMIODARONE 200 MG TABLET 100 MG PO (16:08)
== END 2024-10-13 16:30 | disposition home or self-care (01) ==
PROVIDERS: Emergency Provider Emergency Medicine; PCP Family Medicine
DX: I48.20 Chronic atrial fibrillation, unspecified (principal); Z79.01 Long term (current) use of anticoagulants
CPT/HCPCS: 36415; 71045; 80053; 82550; 83690; 83735; 83880; 84484; 85025; 85610; 85730; 93005; 96361; 96374; 99284

== ENCOUNTER 2024-10-26 08:59 | Emergency (ER) | payer MEDICARE, OTHER, SELFPAY ==
[2024-09-08 13:16] VITALS: BMI 18.8
[2024-10-26] VITALS (21 sets, daily range): BP systolic 109–145; BP diastolic 57–91; PULSE 58–123; RESP 12–20; TEMP 37; O2SAT 93–100; BMI 18.0
--- NOTE | 2024-10-26 09:08 | EKG_ITS ---
[address] [address] Test Date: 2024-10-26 Pat Name: Blessing Islas Department: Room: Gender: Female Orthodontist Assistant: : 1945 Requested By: Order Number: [id number] Reading MD: Dewey Razo MD Measurements Intervals [place] Rate: 95 P: [place]: QRS: 69 QRSD: 82 T: 28 QT: 376 QTc: 472 Interpretive Statements Atrial flutter with variable AV block Septal infarct , age undetermined Electronically Signed On 10-27-2024 8:42:22 PDT by Dewey Razo MD
--- NOTE | 2024-10-26 09:10 | DI.RAD.S_ITS ---
PROCEDURE: XR CHEST 1V INDICATIONS: chest pain TECHNIQUE: One view of the chest was acquired. COMPARISON: [facility], CR, XR CHEST 1V, 09/12/2024, 11:05. [facility], CR, XR CHEST 1V, 09/08/2024, 10:49. [facility], CR, XR CHEST 1V, 10/13/2024, 11:41. FINDINGS: Surgical changes and devices: None. Lungs and pleura: Lungs are clear. No pleural effusions or pneumothorax. Mediastinum: The cardiac contours are within normal limits. The aorta demonstrates calcification and tortuosity. Bones and chest wall: No suspicious bony lesions. Age-appropriate bony degenerative changes are seen. Overlying soft tissues appear unremarkable. IMPRESSION: No acute cardiopulmonary abnormality is seen. Dictated by: Librado Osorio M.D. on 10/26/2024 at 8:48 Approved by: Librado Osorio M.D. on 10/26/2024 at 8:48
--- NOTE | 2024-10-26 09:13 | ED_ITS ---
HPI - Arrhythmia/Palpitations General Chief Complaint: Arrhythmia/Palpitations Stated Complaint: In AFIB; heart fluttering and tired Time Seen by Provider: 10/26/24 09:04 Source: patient Mode of arrival: Ambulatory History of Present Illness HPI narrative: Patient 71-year-old female history of atrial fibrillation on Eliquis presenting today with AFib. Reports that she had a ablation October 04 and has already had a recurrent episode of AFib. She was seen evaluated here 10/13/2024. During that visit cardiology was consulted amiodarone was increased to 200 mg daily from 100 and she was to follow up with Cardiology. She reports that she has been in sinus rhythm ever since until this morning. This morning she feels fatigued and weak. She does feel some flip-flopping in her chest and her watch shoulder she was in AFib. She was in AFib but heart rate is relatively controlled. She has been feeling fatigued ever since her ablation but no significant other symptoms. She was followed by [facility] cardiology. Related Data Home Medications Medication Instructions Recorded Confirmed cholecalciferol (vitamin D3) 25 1,000 unit PO DAILY 01/19/18 09/12/24 mcg (1,000 unit) capsule Previous Rx's Medication Instructions Recorded apixaban 5 mg tablet (Eliquis) 5 mg PO BID #60 tabs 08/16/24 atorvastatin 20 mg tablet 20 mg PO ONCE PM #90 tabs 08/16/24 diltiazem HCl 120 mg 120 mg PO DAILY #30 caps 09/09/24 capsule,extended release 24 hr amiodarone 100 mg tablet 100 mg PO DAILY #30 tabs 09/12/24 trazodone 150 mg tablet 225 mg (1.5 x 150 mg) PO QPM #135 10/17/24 tabs Allergies Allergy/AdvReac Type Severity Reaction Status Date / Time No Known Drug Allergies Allergy Verified 10/26/24 09:11 Patient History Medical History Abnormal mammogram Atrial fibrillation Heart palpitations Pre-syncope Fatigue Peripheral neuropathy Somatic dysfunction of rib region Somatic dysfunction of abdominal region Somatic dysfunction of upper extremity Somatic dysfunction of lower extremity Somatic dysfunction of pelvis region Somatic dysfunction of sacral region Somatic dysfunction of lumbar region Somatic dysfunction of cervical region Dog bite Meningioma Hayfever 1 para 1 Menopause (~1995) Abnormal Pap smear of cervix (2001) Chronic headaches (1996) History of eczema as a child Retinal degeneration (2010) Myopia (2010) Surgical History Severe nausea following anesthesia Status post tubal ligation (1994) Status post colonoscopy (2013) Family History Father Polycystic kidney Crohn's disease Grandfather Cancer Mother Diabetes mellitus, type 2 Dementia Pneumonia Grandmother No problems noted. Grandfather Lung cancer Grandmother Dementia Social History household members: spouse alcohol intake: never alcohol intake frequency: 0-2 drinks per day Exam Initial Vital Signs Initial Vital Signs: Vital Signs Temperature 98.6 F 10/26/24 09:08 Pulse Rate 87 10/26/24 09:08 Respiratory Rate 20 10/26/24 09:08 Blood Pressure 145/85 H 10/26/24 09:08 Pulse Oximetry 99 10/26/24 09:08 Oxygen Delivery Method Room Air 10/26/24 09:08 GENERAL: Alert pleasant well-appearing 71-year-old female HEENT: Head atraumatic,EOMI, pupils reactive, face symmetric, moist mucous membranes CARDIOVASCULAR: Irregularly irregular without murmur RESPIRATORY: Breath sounds equal bilaterally, no wheezes rales or rhonchi. ABDOMEN: Soft, nontender. Normoactive bowel sounds all 4 quadrants. No guarding or rebound. EXTREMITIES: Normal range of motion, no clubbing or edema. Neurovascularly intact NEUROLOGICAL: Alert and oriented x4.Normal gait and speech. Cranial nerves II through XII grossly intact. SKIN: Warm, dry, no laceration, no petechiae, no rashes or lesions. Procedures Cardioversion Time of Cardioversion: 10:00 Consent Signed: Yes Indication: atiral flutter Stability: Stable Number of attempts (shocks): 2 Joules used: 120 and 150 Cardiac rhythm post-cardioversion: NSR Procedural Sedation Time of procedure: 10:00 Consent signed: Yes Time out performed: Yes Indication: cardioversion Presedation Evaluation: atrial flutter ASA Class: II Mallampati Airway Classification: Class II Preparation: bus monitor applied, pulse oximeter, capnometry used, supplemental O2 applied, suction/airway equipment at bedside and IV secured IV Propofol dose (mg): 30 Intraservice time/total sedation time (min): 12 ED Sedation Level: Moderate (Concious) Patient Tolerated Procedure: Well and No complications Complications: none Course Orders Ordered: ED Orders 10/26/24 09:10 XR chest 1V Stat EKG-12 Lead Stat 10/26/24 09:11 RT Consult Eval and Treat NOW 10/26/24 09:12 Complete Blood Count AUTO DIFF Stat Comprehensive Metabolic Panel Stat Lactate (Lactic Acid) Stat Lipase Stat Magnesium Stat NT-proBNP (BNP-Adult 18+) Stat PTT Partial Thromboplastin Robby Stat Prothrombin Time INR Stat Troponin & CK Cardiac Panel Stat Discontinued Medications Aspirin (Aspirin 81 Mg Chew Tab) 324 mg PO NOW ONE Stop: 10/26/24 09:12 Last Admin: 10/26/24 09:45 Dose: Not Given Documented By: ABDIRASHID Diltiazem HCl (Diltiazem 25 Mg/5 Ml Sdv) 10 mg IV NOW ONE Stop: 10/26/24 09:11 Last Admin: 10/26/24 09:42 Dose: 10 mg Documented By: ABDIRASHID Propofol (Propofol 200 Mg/20 Ml Vial) 50 mg 1 mg/kg (50 mg) IV NOW ONE Stop: 10/26/24 09:52 Last Admin: 10/26/24 10:10 Dose: 30 mg Documented By: ABDIRASHID Vital Signs Vital signs: Vital Signs - 8 hr 10/26/24 09:08 10/26/24 09:42 10/26/24 10:05 Temperature 98.6 F Pulse Rate 87 105 H 90 Respiratory Rate 20 12 Blood Pressure 145/85 H 133/91 H 139/60 Pulse Oximetry 99 97 Oxygen Delivery Method Room Air 10/26/24 10:11 10/26/24 10:15 10/26/24 10:20 Temperature Pulse Rate 64 61 60 Respiratory Rate 12 15 18 Blood Pressure 109/63 120/57 L 116/57 L Pulse Oximetry 96 98 97 Oxygen Delivery Method 10/26/24 10:22 Temperature Pulse Rate 60 Respiratory Rate 14 Blood Pressure 117/59 L Pulse Oximetry 98 Oxygen Delivery Method MDM - Arrhythmia/Palpitations Lab Data 10/26/24 09:12 10/26/24 09:12 Labs: Lab Results 10/26/24 Range/Units 09:12 WBC 5.8 (4.5-11.0) X10^3/uL RBC 4.45 (4.0-5.2) X10^6/uL Hgb 14.6 (12.0-16.0) g/dL Hct 43.0 (36-46) % MCV 96.4 (80-100) fL MCH 32.9 (26-34) PG MCHC 34.1 (30-36) % RDW 12.5 (11.6-14.8) % Plt Count 277 (150-400) X10^3/uL Neut % (Auto) 67.5 (50-75) % Lymph % (Auto) 21.1 L (25-40) % [place] % (Auto) 8.2 (3-14) % Eos % (Auto) 2.2 (2-4) % Baso % (Auto) 1.0 (0-2) % Neut # (Auto) 3900 (7934-9075) /uL Lymph # (Auto) 1200 (9655-4278) /uL [place] # (Auto) 500 (0-900) /uL Eos # (Auto) 100 (0-450) /uL Baso # (Auto) 100 (0-100) /uL PT 14.4 H (9.4-12.5) SECONDS INR 1.3 (0.9-1.3) APTT 38 H (25.1-36.5) SECONDS Sodium 138 (137-145) mmol/L Potassium 3.6 (3.4-5.1) mmol/L Chloride 104 (98-107) mmol/L Carbon Dioxide 25 (22-32) mmol/L BUN 16 (7-17) mg/dL Creatinine 0.86 (0.52-1.04) mg/dL Estimated GFR > 60 (>60) mL/min BUN/Creatinine Ratio 18.6 (6-22) Glucose 98 (70-99) mg/dL Lactate 1.3 (0.7-2.1) mmol/L Calcium 9.0 (8.4-10.2) mg/dL Magnesium 1.9 (1.6-2.3) mg/dL Total Bilirubin 0.7 (0.2-1.3) mg/dL AST 29 (14-36) IU/L ALT 28 (<35) IU/L Alkaline Phosphatase 49 (38-126) U/L Total Creatine Kinase 68 (30-135) U/L Troponin I < 0.012 (0.01-0.034) ng/mL NT-Pro-B Natriuret Pep 343 (<450) pg/mL Total Protein 7.0 (6.3-8.2) g/dL Albumin 4.4 (3.5-5.0) g/dL Globulin 2.6 (1.7-4.1) g/dL Albumin/Globulin Ratio 1.7 (1.0-2.8) Lipase 209 (23-300) U/L Point of Care Testing Test Results Not applicable Imaging Data Chest x-ray: Radiologist's Impresson: PROCEDURE: XR CHEST 1V INDICATIONS: chest pain TECHNIQUE: One view of the chest was acquired. COMPARISON: [facility], CR, XR CHEST 1V, 09/12/2024, 11:05. [facility], CR, XR CHEST 1V, 09/08/2024, 10:49. [facility], CR, XR CHEST 1V, 10/13/2024, 11:41. FINDINGS: Surgical changes and devices: None. Lungs and pleura: Lungs are clear. No pleural effusions or pneumothorax. Mediastinum: The cardiac contours are within normal limits. The aorta demonstrates calcification and tortuosity. Bones and chest wall: No suspicious bony lesions. Age-appropriate bony degenerative changes are seen. Overlying soft tissues appear unremarkable. IMPRESSION: No acute cardiopulmonary abnormality is seen. Dictated by: Librado Osorio M.D. on 10/26/2024 at 8:48 ECG Data Attestation: I personally reviewed and interpreted this ECG as follows: Interpretation: Atrial flutter rate 95 no ischemia similar to prior Normal sinus rhythm rate 62 [place] interval 216 QRS 84 QTC 444 no ischemic changes MDM Narrative Medical decision making narrative: MDM CC: Atrial flutter Complicating co-morbidities: Atrial flutter hypertension hyperlipidemia Data collected from: previous ED records Medical records reviewed: ED record from 10/13/2024 cardiology recommend increasing amiodarone Differential considered: Atrial flutter atrial fibrillation anemia Exam documented above, pertinent findings include: Alert very pleasant 71-year-old female irregular heart rate appears in no acute distress Lab Test results independently reviewed as above. Pertinent findings: No leukocytosis no anemia No electrolyte abnormality Negative troponin BNP 343 Independently reviewed EKG as above Atrial flutter rate controlled Repeat shows sinus rhythm Imaging studies independently reviewed: No acute cardiopulmonary process Consultations: Dr. Dillon recommends cardioversion no change in medication Treatments: Diltiazem Successful cardioversion Re-evaluations: Patient remained stable after Discussion: Patient 79 year-old female history of atrial flutter atrial fibrillation on amiodarone has had recurrent episodes since her ablation October 04. Was not cardioverted last time. Cardiology recommends cardioversion this time no change in medication. She was successfully cardioverted in sinus rhythm no complications. Discharge Plan Departure Patient Disposition: Home Clinical Impression: Atrial flutter Instructions: DI for Atrial Flutter Activity Restrictions/Additional Instructions: *You have been diagnosed with atrial flutter *What to do: At this time please re-contact your chuck boner in regards to any possible medication changes. Keep taking your Eliquis *Continue to take medications as directed *Follow up with your primary care provider in 2-3 days or call [phone] *Return to ER if you should have increasing chest pain palpitations recurrent atrial fibrillation/atrial flutter or any new, worsening or concerning symptoms Prescriptions: No Action atorvastatin 20 mg tablet 20 mg PO ONCE PM Qty: 90 3RF Eliquis 5 mg tablet 5 mg PO BID Qty: 60 3RF trazodone 150 mg tablet 225 mg PO QPM Qty: 135 0RF cholecalciferol (vitamin D3) 1,000 unit capsule 1,000 unit PO DAILY diltiazem HCl 120 mg capsule,extended release 24hr 120 mg PO DAILY Qty: 30 2RF amiodarone 100 mg tablet 100 mg PO DAILY Qty: 30 0RF Referrals: Blessing Nava MD [Primary Care Provider] - Stand Alone Forms: Patient Portal/API/Survey
[2024-10-26 09:21] LABS: Add Manual Diff / Slide Review NO; Basophils Absolute Auto 100 /uL (0-100); Eosinophils Absolute Auto 100 /uL (0-450); Eosinophils Percent Auto 2.2 % (2-4); Hemoglobin 14.6 g/dL (12.0-16.0); Lymphocytes Absolute Auto 1200 /uL (1100-4500); Lymphocytes Percent Auto 21.1 % (25-40); Mean Corpuscular HGB Conc 34.1 % (30-36); Mean Corpuscular Hemoglobin 32.9 PG (26-34); Mean Corpuscular Volume 96.4 fL (80-100); Monocytes Absolute Auto 500 /uL (0-900); Monocytes Percent Auto 8.2 % (3-14); Neutrophils Absolute Auto 3900 /uL (1500-7000); Neutrophils Percent Auto 67.5 % (50-75); Platelet Count 277 X10^3/uL (150-400); Red Blood Cell Count 4.45 X10^6/uL (4.0-5.2); Red Cell Distribution Width 12.5 % (11.6-14.8); White Blood Cell Count 5.8 X10^3/uL (4.5-11.0)
[2024-10-26 09:28] LABS: INR 1.3 (0.9-1.3); Prothrombin Time 14.4 SECONDS (9.4-12.5)
[2024-10-26 09:30] LABS: PTT Partial Thromboplastin Tim 38 SECONDS (25.1-36.5)
[2024-10-26 09:32] LABS: Alanine Aminotransferase 28 IU/L (<35); Albumin 4.4 g/dL (3.5-5.0); Albumin Globulin Ratio 1.7 (1.0-2.8); Alkaline Phosphatase 49 U/L (38-126); Aspartate Aminotransferase 29 IU/L (14-36); BUN Creatinine Ratio 18.6 (6-22); Bilirubin Total 0.7 mg/dL (0.2-1.3); Blood Urea Nitrogen 16 mg/dL (7-17); Carbon Dioxide 25 mmol/L (22-32); Chloride 104 mmol/L (98-107); Creatine Kinase 68 U/L (30-135); Estimated Glomerular Filt Rate > 60 mL/min (>60); Globulin 2.6 g/dL (1.7-4.1); Glucose 98 mg/dL (70-99); HEMOLYSIS < 15 (0-50); Lipase 209 U/L (23-300); Magnesium 1.9 mg/dL (1.6-2.3); Potassium 3.6 mmol/L (3.4-5.1); Sodium 138 mmol/L (137-145)
[2024-10-26 09:33] LABS: Lactate (Lactic Acid) 1.3 mmol/L (0.7-2.1)
[2024-10-26] MEDS: dilTIAZem 25 MG/5 ML SDV 10 MG IV (09:42)
[2024-10-26 09:44] LABS: NT-proBNP (BNP-Adult 18+) 343 pg/mL (<450); Troponin I < 0.012 ng/mL (0.01-0.034)
[2024-10-26] MEDS: propofoL 200 MG/20 ML VIAL 50 MG IV (10:10)
--- NOTE | 2024-10-26 10:16 | EKG_ITS ---
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
== END 2024-10-26 11:02 | disposition home or self-care (01) ==
PROVIDERS: Emergency Provider Emergency Medicine; PCP Family Medicine
DX: I48.92 Unspecified atrial flutter (principal); Z79.01 Long term (current) use of anticoagulants
CPT/HCPCS: 36415; 71045; 80053; 82550; 83605; 83690; 83735; 83880; 84484; 85025; 85610; 85730; 92960; 93005; 93010; 96374; 99152; 99285; J2704

== ENCOUNTER → 2024-11-04 12:09 | Outpatient (CLI) | payer MEDICARE, OTHER, SELFPAY ==
[2024-09-08 13:16] VITALS: BMI 18.8
--- NOTE | 2024-11-04 12:11 | DI.MG.S_ITS ---
MM diagnostic mammo BI, US breast LT limited: 11/04/2024 BI-RADS: 3 CLINICAL: 79-year old female for bilateral diagnostic mammogram and left diagnostic breast ultrasound that is a recall from screening on 10/03/2024. Tyrer-Cuzick lifetime risk of 2.2%. No personal or first-degree family history of breast cancer. PRIOR EXAMS Mammogram(s): 10/03/2024. Nine Other Exams on 09/19/2023, 09/14/2022, 09/09/2021, 08/27/2020, 08/21/2019, 06/14/2018, 06/01/2017, 05/26/2016, 05/22/2015. MAMMOGRAPHY TECHNIQUE: 2D and 3D (tomosynthesis) digital mammographic views obtained, with additional images as needed for full coverage. Current study was also evaluated with a Computer Aided Detection (CAD) system. ULTRASOUND TECHNIQUE Real-time edouard scale and color doppler imaging of the area of clinical interest was performed with image documentation. TARGETED Left Breast Ultrasound: Real-time ultrasound exam was performed focused to area of clinical and/or imaging concern. DENSITY C. The breasts are heterogeneously dense, which may obscure small masses. MAMMOGRAPHY FINDINGS Right: CC only, Inner, Middle depth: Previously seen asymmetry is no longer visible. No suspicious mass, asymmetry, microcalcification, or other abnormality seen. The finding seen on recent screening mammogram did not persist with additional imaging and is consistent with superimposition of normal breast tissue. Left (finding-1): CC only, Inner, Middle depth, measuring 0.4cm: There is an asymmetry present. ULTRASOUND FINDINGS Left (finding-1): Lower Inner at 7:00, 4.0 cm from nipple, measuring 0.3 x 0.3 x 0.4 cm. Previous report: CC only, Inner: Correlating with findings on mammogram there is an oval, circumscribed, hypoechoic cyst vs solid mass that is parallel showing no posterior acoustic features. Doppler shows no vascularity. IMPRESSION: Right * No evidence of malignancy. Left (CvS): Lower Inner at 7:00, 4.0 cm from nipple, measuring 0.3 x 0.3 x 0.4 cm. Previous report: CC only, Inner * Probably Benign. RECOMMENDATIONS Left: Lower Inner at 7:00, 4.0 cm from nipple * Six month followup with diagnostic mammography and diagnostic ultrasound. COMMENTS: Findings and recommendations were conveyed to the patient during today's evaluation. OVERALL ASSESSMENT CATEGORY BI-RADS-3: Probably Benign. ELECTRONICALLY SIGNED: Asa Groves M.D. on 11/04/2024 at 01:40:48 PM PT Interpreting Station ID: [id number]
== END ==
PROVIDERS: PCP Family Medicine; Referring Provider Family Medicine; Visit Provider Family Medicine
DX: R92.8 Other abnormal and inconclusive findings on diagnostic imaging of breast (principal); R92.333 Mammographic heterogeneous density, bilateral breasts
CPT/HCPCS: 76642; 77066; G0279

== ENCOUNTER 2025-03-14 10:31 | Emergency (ER) | payer MEDICARE, OTHER, SELFPAY ==
[2024-09-08 13:16] VITALS: BMI 18.8
[2025-03-14] VITALS (91 sets, daily range): BP systolic 88–166; BP diastolic 54–128; PULSE 69–157; RESP 12–28; TEMP 36.5; O2SAT 91–100; BMI 17.8
--- NOTE | 2025-03-14 10:41 | EKG_ITS ---
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
--- NOTE | 2025-03-14 10:42 | DI.RAD.S_ITS ---
PROCEDURE: XR CHEST 1V INDICATIONS: Chest Pain TECHNIQUE: One view of the chest was acquired. COMPARISON: [facility], CR, XR CHEST 1V, 01/30/2025, 9:57. [facility], CR, XR CHEST 1V, 10/26/2024, 9:12. FINDINGS: Surgical changes and devices: None. Lungs and pleura: Lungs are clear. No pleural effusions or pneumothorax. Mediastinum: Mediastinal contours appear normal. Heart size is normal. Bones and chest wall: No suspicious bony lesions. Overlying soft tissues appear unremarkable. IMPRESSION: No acute cardiopulmonary abnormality is seen. Dictated by: Lorne Boss M.D. on 03/14/2025 at 12:52 Approved by: Lorne Boss M.D. on 03/14/2025 at 12:53
--- NOTE | 2025-03-14 10:54 | PC.NURSE ---
Pt received into ED and assessed by MALIA Cristina and this RN. Reported that pt recently had an ablation procedure and has since had two episodes of A-Fib, this being her third. Pt reports she takes blood thinners at home, Eliquis at 5mg PO BID. Reports she took her Eliquis this morning. Reports current episode of A-Fib started about an hour prior to presenting at ED while walking her dog. IV placed, EKG completed, and pt place on VS and cardiac monitoring. BP elevated at 158/108 and MD was notified.
--- NOTE | 2025-03-14 10:58 | PC.NURSE ---
This RN talked to Dr. Castro and informed him of the reason patient was here and that the patient had previous ablation on 10/04/2024. Patient reports that this is the 3rd episode post ablation of A-fib. Dr. Castro aware.
[2025-03-14 11:02] LABS: INR 1.0 (0.9-1.3); Prothrombin Time 10.8 SECONDS (9.4-12.5)
[2025-03-14 11:04] LABS: PTT Partial Thromboplastin Tim 33 SECONDS (25.1-36.5)
[2025-03-14 11:06] LABS: Alanine Aminotransferase 27 IU/L (<35); Albumin 4.7 g/dL (3.5-5.0); Albumin Globulin Ratio 1.4 (1.0-2.8); Alkaline Phosphatase 55 U/L (38-126); Blood Urea Nitrogen 22 mg/dL (7-17); Calcium 9.3 mg/dL (8.4-10.2); Carbon Dioxide 29 mmol/L (22-32); Chloride 99 mmol/L (98-107); Creatine Kinase 91 U/L (30-135); Estimated Glomerular Filt Rate > 60 mL/min (>60); Globulin 3.3 g/dL (1.7-4.1); Glucose 136 mg/dL (70-99); HEMOLYSIS < 15 (0-50); Lipase 278 U/L (23-300); Magnesium 2.0 mg/dL (1.6-2.3); Potassium 3.6 mmol/L (3.4-5.1); Sodium 137 mmol/L (137-145); Total Protein 8.0 g/dL (6.3-8.2)
[2025-03-14 11:17] LABS: NT-proBNP (BNP-Adult 18+) 485 pg/mL (<450); Troponin I < 0.012 ng/mL (0.01-0.034)
--- NOTE | 2025-03-14 11:28 | ED.ARRPALP ---
HPI - Arrhythmia/Palpitations General Chief Complaint: Arrhythmia/Palpitations Stated Complaint: In AFIB per PTs Time Seen by Provider: 03/14/25 10:41 Source: patient Mode of arrival: Ambulatory History of Present Illness HPI narrative: Patient brought here by for atrial fibrillation atrial flutter. Patient had ablation 6 months ago and follow up appointment 8 days [facility] Patient is seen here last month for atrial fibrillation and converted with Cardizem. Patient denies any chest pain. Onset this morning. Patient is still taking Eliquis but no antiarrhythmics. Patient in no distress. Spoke with patient my discussion with Cardiology dr harris, recommend cardioversion and then starting metoprolol. Patient agrees with treatment plan. Risks and benefits reviewed with her regarding procedural sedation and cardioversion. She has had this done before. Related Data Home Medications ?Medication ?Instructions ?Recorded ?Confirmed cholecalciferol (vitamin D3) 25 1,000 unit PO DAILY 01/19/18 02/19/25 mcg (1,000 unit) capsule dorzolamide 22.3 mg-timolol 6.8 EYE-BOTH 02/19/25 02/19/25 mg/mL eye drops latanoprost 0.005 % eye drops 1 drp EYE-BOTH QPM 02/19/25 02/19/25 Previous Rx's ?Medication ?Instructions ?Recorded atorvastatin 20 mg tablet 20 mg PO ONCE PM #90 tabs 08/16/24 trazodone 150 mg tablet 225 mg (1.5 x 150 mg) PO QPM #135 01/20/25 tabs apixaban 5 mg tablet (Eliquis) 5 mg PO BID #60 tabs 02/05/25 Allergies Allergy/AdvReac Type Severity Reaction Status Date / Time No Known Drug Allergies Allergy Verified 03/14/25 10:42 Review of Systems Review of Systems Narrative: GENERAL: Negative chills, fatigue, malaise, fever, sweats. HEENT: Negative sinus pain, ear pain, sore throat RESPIRATORY: Negative dyspnea, cough CARDIOVASCULAR: Negative chest pain, positive palpitations GASTROINTESTINAL: Negative vomiting, nausea, abdominal pain : Negative dysuria, frequency, hematuria MUSCULOSKELETAL: Negative muscle or bony pain SKIN: Negative rash, skin lesions NEUROLOGIC: Negative weakness, numbness ROS Unobtainable: All systems reviewed & are unremarkable except as noted in HPI and below Patient History Medical History Abnormal mammogram Atrial fibrillation Heart palpitations Pre-syncope Fatigue Peripheral neuropathy Somatic dysfunction of rib region Somatic dysfunction of abdominal region Somatic dysfunction of upper extremity Somatic dysfunction of lower extremity Somatic dysfunction of pelvis region Somatic dysfunction of sacral region Somatic dysfunction of lumbar region Somatic dysfunction of cervical region Dog bite Meningioma Hayfever 1 para 1 Menopause (~1995) Abnormal Pap smear of cervix (2001) Chronic headaches (1996) History of eczema as a child Retinal degeneration (2010) Myopia (2010) Surgical History Severe nausea following anesthesia Status post tubal ligation (1994) Status post colonoscopy (2013) Family History Father Polycystic kidney Crohn's disease Grandfather Cancer Mother Diabetes mellitus, type 2 Dementia Pneumonia Grandmother No problems noted. Grandfather Lung cancer Grandmother Dementia Social History household members: spouse Smoking Status: Unknown if ever smoked alcohol intake: never Smoking Status: Unknown if ever smoked alcohol intake frequency: 0-2 drinks per day Exam Narrative Exam Narrative: GENERAL: in no distress, not toxic not dyspneic HEAD: Normocephalic. EYES: Pupils equal round ENT: Mucous membranes moist. NECK: Trachea midline. CARDIOVASCULAR: Regular rate and rhythm, tachycardic RESPIRATORY: Clear to auscultation. Breath sounds equal bilaterally. No wheezes, rales, or rhonchi. GASTROINTESTINAL: Abdomen soft, non-tender EXTREMITIES: No gross deformities. BACK: No flank tenderness. NEURO: AOx4. Clear speech SKIN: Warm and dry PSYCH: Not anxious, is cooperative Initial Vital Signs Initial Vital Signs: Vital Signs Temperature 97.7 F 03/14/25 10:33 Pulse Rate 114 H 03/14/25 10:33 Respiratory Rate 15 03/14/25 10:33 Blood Pressure 154/108 H 03/14/25 10:33 Pulse Oximetry 96 03/14/25 10:33 Oxygen Delivery Method Room Air 03/14/25 10:33 Procedures Cardioversion Time of Cardioversion: 12:34 Consent Signed: Yes Indication: Atrial flutter Stability: Stable Number of attempts (shocks): 2 Joules used: 150 Cardiac rhythm post-cardioversion: Atrial fibrillation Additional Comments: 2nd shock at 200 joules. Synchronized for both Procedural Sedation Time of procedure: 12:33 Consent signed: Yes Time out performed: Yes Indication: cardioversion ASA Class: I Mallampati Airway Classification: Class I Time of Last PO Intake: 07:00 Preparation: sales representative gas service applied, pulse oximeter, capnometry used, supplemental O2 applied, reversal agents at bedside, suction/airway equipment at bedside and IV secured IV Propofol dose (mg): 30 Intraservice time/total sedation time (min): 12 ED Sedation Level: Moderate (Concious) Patient Tolerated Procedure: Well and No complications Complications: none Course Orders Ordered: Discontinued Medications Alprazolam (Alprazolam 0.25 Mg Tablet) 0.25 mg PO NOW ONE Stop: 03/14/25 14:17 Last Admin: 03/14/25 14:39 Dose: 0.25 mg Documented By: EB Aspirin (Aspirin 81 Mg Chew Tab) 324 mg PO NOW ONE Stop: 03/14/25 10:43 Last Admin: 03/14/25 10:59 Dose: Not Given Documented By: EB Sodium Chloride (Normal Saline 0.9%) 1,000 mls @ 1,000 mls/hr IV BOLUS ONE Stop: 03/14/25 14:18 Last Infusion: 03/14/25 14:45 Dose: Infused Documented By: Admin: 03/14/25 13:22 Dose: 1,000 mls/hr Documented By: RB Amiodarone HCl/Dextrose (Nexterone) 360 mg in 200 mls @ 33.333 mls/hr IV NOW ONE; Protocol Stop: 03/14/25 19:19 Last Titration: 03/14/25 18:48 Dose: 0 mls/hr, 0 mls/hr Documented By: Admin: 03/14/25 13:47 Dose: 33.333 mls/hr, 33.33 mls/hr Documented By: RB Amiodarone HCl/Dextrose (Nexterone) 360 mg in 200 mls @ 16.7 mls/hr IV CONT JASON; Protocol Stop: 03/15/25 01:29 Amiodarone HCl/Dextrose (Nexterone) 150 mg in 100 mls @ 600 mls/hr IV NOW ONE; Protocol Stop: 03/14/25 13:29 Last Infusion: 03/14/25 13:46 Dose: Infused Documented By: Admin: 03/14/25 13:36 Dose: 600 mls/hr Documented By: DUKE Amiodarone HCl/Dextrose (Nexterone) 360 mg in 200 mls @ 16.7 mls/hr IV CONT JASON; Protocol Stop: 03/15/25 07:19 Last Titration: 03/14/25 18:48 Dose: 0 mls/hr, 0 mls/hr Documented By: Admin: 03/14/25 18:46 Dose: 16.7 mls/hr, 16.7 mls/hr Documented By: JEFFREY Propofol (Propofol 200 Mg/20 Ml Vial) 60 mg IV NOW ONE Stop: 03/14/25 11:33 Last Admin: 03/14/25 12:24 Dose: 30 mg Documented By: JEFFREY Vital Signs Vital signs: Vital Signs - 8 hr 03/14/25 10:33 03/14/25 10:38 03/14/25 10:39 Temperature 97.7 F Pulse Rate 114 H 112 H Respiratory Rate 15 Blood Pressure 154/108 H 154/108 H Pulse Oximetry 96 98 Oxygen Delivery Method Room Air 03/14/25 10:40 03/14/25 10:45 03/14/25 10:50 Temperature Pulse Rate 113 H 142 H 155 H Respiratory Rate 14 17 Blood Pressure Pulse Oximetry 99 99 97 Oxygen Delivery Method 03/14/25 10:55 03/14/25 11:00 03/14/25 11:00 Temperature Pulse Rate 151 H 152 H Respiratory Rate 16 12 Blood Pressure 103/65 Pulse Oximetry 97 97 Oxygen Delivery Method 03/14/25 11:05 03/14/25 11:10 03/14/25 11:15 Temperature Pulse Rate 131 H 146 H 148 H Respiratory Rate 13 19 20 Blood Pressure Pulse Oximetry 97 98 97 Oxygen Delivery Method 03/14/25 11:20 03/14/25 11:25 03/14/25 11:30 Temperature Pulse Rate 154 H 157 H Respiratory Rate 18 17 Blood Pressure 127/74 Pulse Oximetry 97 97 Oxygen Delivery Method 03/14/25 11:30 03/14/25 11:54 03/14/25 11:55 Temperature Pulse Rate 135 H 69 89 Respiratory Rate 16 Blood Pressure Pulse Oximetry 96 99 97 Oxygen Delivery Method 03/14/25 11:56 03/14/25 11:56 03/14/25 12:00 Temperature Pulse Rate 104 H 105 H Respiratory Rate Blood Pressure 127/70 Pulse Oximetry 97 97 Oxygen Delivery Method 03/14/25 12:00 03/14/25 12:05 03/14/25 12:05 Temperature Pulse Rate 139 H Respiratory Rate Blood Pressure 130/67 120/58 L Pulse Oximetry 97 Oxygen Delivery Method 03/14/25 12:10 03/14/25 12:10 03/14/25 12:15 Temperature Pulse Rate 102 H 96 H Respiratory Rate Blood Pressure 118/58 L Pulse Oximetry 97 97 Oxygen Delivery Method 03/14/25 12:16 03/14/25 12:16 03/14/25 12:20 Temperature Pulse Rate 96 H 142 H Respiratory Rate 12 Blood Pressure 163/92 H Pulse Oximetry 97 97 Oxygen Delivery Method 03/14/25 12:20 03/14/25 12:25 03/14/25 12:25 Temperature Pulse Rate 138 H Respiratory Rate 16 Blood Pressure 145/77 H 137/73 Pulse Oximetry 96 Oxygen Delivery Method 03/14/25 12:30 03/14/25 12:30 03/14/25 12:35 Temperature Pulse Rate 133 H 138 H Respiratory Rate 18 19 Blood Pressure 152/82 H Pulse Oximetry 96 96 Oxygen Delivery Method 03/14/25 12:35 03/14/25 12:40 03/14/25 12:40 Temperature Pulse Rate 140 H Respiratory Rate 20 Blood Pressure 137/79 117/54 L Pulse Oximetry 97 Oxygen Delivery Method 03/14/25 12:45 03/14/25 12:45 03/14/25 12:45 Temperature Pulse Rate 135 H 144 H Respiratory Rate 17 12 Blood Pressure 124/55 L Pulse Oximetry 97 Oxygen Delivery Method 03/14/25 12:50 03/14/25 12:50 03/14/25 12:55 Temperature Pulse Rate 140 H Respiratory Rate 18 Blood Pressure 115/55 L 128/72 Pulse Oximetry 98 Oxygen Delivery Method 03/14/25 12:55 03/14/25 13:00 03/14/25 13:00 Temperature Pulse Rate 136 H 134 H Respiratory Rate 24 23 Blood Pressure 127/83 Pulse Oximetry 97 98 Oxygen Delivery Method 03/14/25 13:05 03/14/25 13:05 03/14/25 13:10 Temperature Pulse Rate 120 H 137 H Respiratory Rate 22 19 Blood Pressure 127/70 Pulse Oximetry 99 97 Oxygen Delivery Method 03/14/25 13:10 03/14/25 13:15 03/14/25 13:15 Temperature Pulse Rate 137 H Respiratory Rate 19 Blood Pressure 126/72 88/60 L Pulse Oximetry 98 Oxygen Delivery Method 03/14/25 13:17 03/14/25 13:17 03/14/25 13:20 Temperature Pulse Rate 140 H Respiratory Rate 28 H Blood Pressure 91/74 155/90 H Pulse Oximetry 97 Oxygen Delivery Method 03/14/25 13:20 03/14/25 13:25 03/14/25 13:25 Temperature Pulse Rate 140 H 140 H Respiratory Rate 13 Blood Pressure 137/62 Pulse Oximetry 98 99 Oxygen Delivery Method 03/14/25 13:30 03/14/25 13:30 03/14/25 13:35 Temperature Pulse Rate 145 H 137 H Respiratory Rate 22 12 Blood Pressure 149/88 H Pulse Oximetry 91 98 Oxygen Delivery Method 03/14/25 13:35 03/14/25 13:41 03/14/25 13:41 Temperature Pulse Rate 126 H Respiratory Rate 21 Blood Pressure 165/73 H 156/84 H Pulse Oximetry 98 Oxygen Delivery Method 03/14/25 13:45 03/14/25 13:45 03/14/25 13:50 Temperature Pulse Rate 98 H Respiratory Rate 17 Blood Pressure 140/73 136/80 Pulse Oximetry 100 Oxygen Delivery Method 03/14/25 13:50 03/14/25 13:55 03/14/25 13:55 Temperature Pulse Rate 114 H 112 H Respiratory Rate 14 23 Blood Pressure 142/88 H Pulse Oximetry 99 99 Oxygen Delivery Method 03/14/25 14:00 03/14/25 14:00 03/14/25 14:16 Temperature Pulse Rate 96 H 113 H Respiratory Rate 14 24 Blood Pressure 140/94 H Pulse Oximetry 99 100 Oxygen Delivery Method 03/14/25 14:16 03/14/25 14:20 03/14/25 14:20 Temperature Pulse Rate 110 H Respiratory Rate 20 Blood Pressure 139/96 H 159/71 H Pulse Oximetry 100 Oxygen Delivery Method 03/14/25 14:26 03/14/25 14:26 03/14/25 14:30 Temperature Pulse Rate 96 H 93 H Respiratory Rate 18 27 H Blood Pressure 129/85 Pulse Oximetry 100 100 Oxygen Delivery Method 03/14/25 14:30 03/14/25 14:36 03/14/25 14:36 Temperature Pulse Rate 113 H Respiratory Rate 22 Blood Pressure 146/68 H 140/82 Pulse Oximetry 100 Oxygen Delivery Method 03/14/25 14:40 03/14/25 14:40 Temperature Pulse Rate 91 H Respiratory Rate 20 Blood Pressure 145/70 H Pulse Oximetry 100 Oxygen Delivery Method MDM - Arrhythmia/Palpitations Lab Data 03/14/25 10:40 03/14/25 10:40 Labs: Lab Results 03/14/25 Range/Units 10:40 WBC 6.7 (4.5-11.0) X10^3/uL RBC 4.88 (4.0-5.2) X10^6/uL Hgb 15.9 (12.0-16.0) g/dL Hct 45.8 (36-46) % MCV 94.0 (80-100) fL MCH 32.5 (26-34) PG MCHC 34.6 (30-36) % RDW 12.9 (11.6-14.8) % Plt Count 296 (150-400) X10^3/uL Neut % (Auto) 74.0 (50-75) % Lymph % (Auto) 17.0 L (25-40) % Desha % (Auto) 8.1 (3-14) % Eos % (Auto) 0.6 L (2-4) % Baso % (Auto) 0.3 (0-2) % Neut # (Auto) 5000 (4340-2834) /uL Lymph # (Auto) 1100 (8797-5980) /uL Desha # (Auto) 500 (0-900) /uL Eos # (Auto) 0 (0-450) /uL Baso # (Auto) 0 (0-100) /uL PT 10.8 (9.4-12.5) SECONDS INR 1.0 (0.9-1.3) APTT 33 (25.1-36.5) SECONDS Sodium 137 (137-145) mmol/L Potassium 3.6 (3.4-5.1) mmol/L Chloride 99 (98-107) mmol/L Carbon Dioxide 29 (22-32) mmol/L BUN 22 H (7-17) mg/dL Creatinine 0.87 (0.52-1.04) mg/dL Estimated GFR > 60 (>60) mL/min BUN/Creatinine Ratio 25.3 H (6-22) Glucose 136 H (70-99) mg/dL Calcium 9.3 (8.4-10.2) mg/dL Magnesium 2.0 (1.6-2.3) mg/dL Total Bilirubin 0.7 (0.2-1.3) mg/dL AST 31 (14-36) IU/L ALT 27 (<35) IU/L Alkaline Phosphatase 55 (38-126) U/L Total Creatine Kinase 91 (30-135) U/L Troponin I < 0.012 (0.01-0.034) ng/mL NT-Pro-B Natriuret Pep 485 H (<450) pg/mL Total Protein 8.0 (6.3-8.2) g/dL Albumin 4.7 (3.5-5.0) g/dL Globulin 3.3 (1.7-4.1) g/dL Albumin/Globulin Ratio 1.4 (1.0-2.8) Lipase 278 (23-300) U/L Point of Care Testing Test Results Not applicable Imaging Data Chest x-ray: Radiologist's Impresson: [address] [address] XRay Report Signed Patient: Blessing Islas MR#: [id number] : 1945 Acct:[id number] Age/Sex: 79 / F Date of Service: 03/14/25 Loc: ED Accession Number: [id number] Procedure: XR chest 1V Ordering Provider: Juan M Castro MD PROCEDURE: XR CHEST 1V INDICATIONS: Chest Pain TECHNIQUE: One view of the chest was acquired. COMPARISON: [facility], CR, XR CHEST 1V, 01/30/2025, 9:57. [facility], CR, XR CHEST 1V, 10/26/2024, 9:12. FINDINGS: Surgical changes and devices: None. Lungs and pleura: Lungs are clear. No pleural effusions or pneumothorax. Mediastinum: Mediastinal contours appear normal. Heart size is normal. Bones and chest wall: No suspicious bony lesions. Overlying soft tissues appear unremarkable. IMPRESSION: No acute cardiopulmonary abnormality is seen. Dictated by: Lorne Boss M.D. on 03/14/2025 at 12:52 Approved by: Lorne Boss M.D. on 03/14/2025 at 12:53 [facility] Narrative Medical decision making narrative: Patient brought here by for atrial fibrillation atrial flutter. Patient had ablation 6 months ago and follow up appointment 8 days ago with cardiology [facility]. Patient is seen here last month for atrial fibrillation and converted with Cardizem. Patient denies any chest pain. Onset this morning. Patient is still taking Eliquis but no antiarrhythmics. Patient in no distress. Spoke with patient my discussion with Cardiology dr harris, recommend cardioversion and then starting metoprolol. Patient agrees with treatment plan. Risks and benefits reviewed with her regarding procedural sedation and cardioversion. She has had this done before. MDM After history and exam, EKG CBC CMP troponin chest x-ray cardiology consult cardioversion Differential considered: Includes but not limited to atrial fibrillation atrial flutter Medical records reviewed: January 30, 2025 emergency visit here, March 06 2025 cardiology office visit. Lab Test results independently reviewed as above. Pertinent findings: INR 1.0 sodium 137 potassium 3.6 BUN 22 creatinine 0.87 glucose 136 troponin less than 0.012 BNP 485 Independently reviewed EKG atrial flutter rate 130 Imaging studies independently reviewed: Chest x-ray no acute finding Consultations: 11:15 a.m.. Spoke with Cardiology dr harris, recommends cardioversion starting metoprolol 1:18 p.m.. I spoke with Cardiology again dr harris, unsuccessful with cardioversion. Recommends amiodarone 150 mg bolus and then followed by 1 milligram/minute, transferred to [facility], patient will need to see EP Cardiology However no beds available at [facility]. 2:46 p.m.. I spoke with Kathia Badillo, she will accept patient. Patient is on amiodarone drip. Re-evaluations: 1:30 p.m.. Updated patient and results and recommendations to transfer by her cardiology team Discussion: Appropriate for transfer for higher level of care for cardiology. Diagnosis: Atrial flutter Critical Care Time Critical Care Time Attestation: Critical Care Time 35 minutes: Critical care time is separate from other billable procedures. This critical care time includes consultation with family and other consulting doctors, review of records, and interpretation of data from labs, EKGs, imaging, etc. Discharge Plan Departure [facility] Clinical Impression: Atrial flutter with rapid ventricular response Prescriptions: No Action latanoprost 0.005 % drops 1 drp EYE-BOTH QPM dorzolamide-timolol 22.3-6.8 mg/mL drops EYE-BOTH atorvastatin 20 mg tablet 20 mg PO ONCE PM Qty: 90 3RF trazodone 150 mg tablet 225 mg PO QPM Qty: 135 0RF Eliquis 5 mg tablet 5 mg PO BID Qty: 60 0RF cholecalciferol (vitamin D3) 1,000 unit capsule 1,000 unit PO DAILY Referrals: Blessing Nava MD [Primary Care Provider, Family Practice]
[2025-03-14 11:40] LABS: Add Manual Diff / Slide Review NO; Hematocrit 45.8 % (36-46); Hemoglobin 15.9 g/dL (12.0-16.0); Lymphocytes Absolute Auto 1100 /uL (1100-4500); Mean Corpuscular HGB Conc 34.6 % (30-36); Mean Corpuscular Hemoglobin 32.5 PG (26-34); Mean Corpuscular Volume 94.0 fL (80-100); Platelet Count 296 X10^3/uL (150-400)
--- NOTE | 2025-03-14 12:35 | EKG_ITS ---
[id number] [place] [address] Test Date: 2025-03-14 Pat Name: Blessing Islas Department: Room: Gender: Female Fabrication Technician: : 1945 Requested By: Order Number: [id number] Reading MD: Dewey Razo MD Measurements Intervals [place] Rate: 120 P: DE: QRS: 77 QRSD: 72 T: 27 QT: 334 QTc: 472 Interpretive Statements Atrial flutter with variable AV block Cannot rule out Anterior infarct , age undetermined Electronically Signed On 03-16-2025 8:39:46 PDT by Dewey Razo MD
[2025-03-14] MEDS: SODIUM CHLORIDE 0.9% 1,000 ML 1000 ML IV (13:22)
--- NOTE | 2025-03-14 13:22 | PC.NURSE ---
This RN informed Dr. Castro of patient blood pressure and provider ordered patient 1000ml normal saline bolus for this patient and this RN fufilled the order.
[2025-03-14] MEDS: AMIODARONE 150 MG/100 ML PIGGYBACK 600 MG IV (13:36)
[2025-03-14] MEDS: AMIODARONE 360 MG/200 ML PIGGYBACK 33.33 MG IV (13:47)
--- NOTE | 2025-03-14 16:02 | PC.NURSE ---
Purewick external catheter placed by CALLIE. Pt urinated and 1000mL output recorded. Urine clear and yellow.
[2025-03-14] MEDS: AMIODARONE 360 MG/200 ML PIGGYBACK 16.7 MG IV (18:46)
--- NOTE | 2025-03-14 18:49 | PC.NURSE ---
Transport to arrived at 1830 and report was given by this RN to Vel [facility]. Informed of pt's current Amiodarone drip and provided with the third bag as the current infusion would finish prior to the pt's arrival at . Confirmed that Transport staff are able to administer Amiodarone.
--- NOTE | 2025-03-14 18:55 | PC.NURSE ---
Pt and asked medical staff manager if it was Ok to receive Elequis that she would normally be taking at this time of day if at home. While medical staff manager were consulting with MD and getting confirmation that this could be ordered and given, pt took an Elequis pill equivalent to her home dosage before getting confirmation from MD that this was OK. While medical staff manager was delivering information to pt and that MD had OK'ed ordering the Elequis, pt told medical staff manager that she had already taken the medication.
--- NOTE | 2025-03-14 19:12 | PC.NURSE ---
Pt discharged at 190 via ALS. Report given to nurse Vargas at at this time.
== END 2025-03-14 19:13 | disposition short-term general hospital (02) ==
PROVIDERS: Emergency Provider Emergency Medicine; PCP Family Medicine
DX: I48.92 Unspecified atrial flutter (principal); R07.9 Chest pain, unspecified; Z79.01 Long term (current) use of anticoagulants
CPT/HCPCS: 36415; 71045; 80053; 82550; 83690; 83735; 83880; 84484; 85025; 85610; 85730; 92960; 93005; 93010; 96365; 96366; 96375; 96376; 99152; 99285; 99291; J0282; J2704

== ENCOUNTER → 2025-05-08 11:53 | Outpatient (CLI) | payer MEDICARE, OTHER, SELFPAY ==
[2024-09-08 13:16] VITALS: BMI 18.8
--- NOTE | 2025-05-08 11:55 | DI.MG.S_ITS ---
MM diagnostic mammo unilat LT, US breast LT limited: 05/08/2025 BI-RADS: 3 CLINICAL: 79-year old female for left diagnostic mammogram and left diagnostic breast ultrasound. The patient presents for short interval follow-up. Tyrer-Cuzick lifetime risk of 2.2%. No personal or first-degree family history of breast cancer. PRIOR EXAMS Mammogram(s): 11/04/2024, 10/03/2024, 09/19/2023, 09/14/2022. MAMMOGRAPHY TECHNIQUE: 2D and 3D (tomosynthesis) digital mammographic views obtained, with additional images as needed for full coverage. Current study was also evaluated with a Computer Aided Detection (CAD) system. ULTRASOUND TECHNIQUE Real-time edouard scale and color doppler imaging of the area of clinical interest was performed with image documentation. TARGETED Left Breast Ultrasound: Real-time ultrasound exam was performed focused to area of clinical and/or imaging concern. DENSITY Left: C. The breast is heterogeneously dense, which may obscure small masses. MAMMOGRAPHY FINDINGS Left: CC only, Inner, Middle depth: The previously questioned asymmetry is not as well visualized on the current examination. No other significant finding or change is seen. ULTRASOUND FINDINGS Left: Lower Inner at 7:00, 4 cm from nipple, measuring 0.4 x 0.3 x 0.3 cm - previously measuring (11/04/2024) 0.3 x 0.3 x 0.4 cm. Previous report: 4.0 cm from nipple: Correlating with prior imaging concern there is a complicated cyst that is unchanged in size and appearance. Doppler shows no vascularity. IMPRESSION: Left (Complicated Cyst): Lower Inner at 7:00, 4 cm from nipple, measuring 0.4 x 0.3 x 0.3 cm - previously measuring (11/04/2024) 0.3 x 0.3 x 0.4 cm. Previous report: 4.0 cm from nipple * Probably Benign. RECOMMENDATIONS Left: Lower Inner at 7:00, 4 cm from nipple * Six month followup with diagnostic mammography and diagnostic ultrasound. When the patient returns for short-term unilateral followup, a mammogram for the contralateral breast will also be due. COMMENTS: Findings and recommendations were conveyed to the patient during today's evaluation. OVERALL ASSESSMENT CATEGORY BI-RADS-3: Probably Benign. ELECTRONICALLY SIGNED: Marily Maldonado M.D. on 05/08/2025 at 01:54:09 PM PT Interpreting Station ID: [id number]
== END ==
LOC: MAMMO 11:54
PROVIDERS: PCP Family Medicine; Referring Provider Family Medicine; Visit Provider Family Medicine
DX: R92.8 Other abnormal and inconclusive findings on diagnostic imaging of breast (principal); R92.332 Mammographic heterogeneous density, left breast; N60.02 Solitary cyst of left breast
CPT/HCPCS: 76642; 77065; G0279